=== PATIENT | male | born 1965 | race Caucasian/White ===

== ENCOUNTER 2016-08-10 15:38 | Emergency (ER) | payer OTHER ==
[~2016-08-10] VITALS: Ht 188 cm; Wt 126.9 kg
[2016-08-10 15:46] VITALS: TEMP 37.1; Ht 188 cm; Wt 126.9 kg
[2016-08-10] MEDS ORDERED: SODIUM CHLORIDE 0.9% 500ML 500 ML IV STA (15:58)
[2016-08-10] MEDS ORDERED: ZIPR1CAP4 PO (16:16)
[2016-08-10] MEDS ORDERED: TRC145 PO (16:16)
[2016-08-10] MEDS ORDERED: TRAZ100T29 PO (16:16)
[2016-08-10] MEDS ORDERED: LSN5 PO (16:16)
[2016-08-10] MEDS ORDERED: FOLI1TAB7 PO (16:16)
[2016-08-10] MEDS ORDERED: ESCI10TA17 PO (16:16)
[2016-08-10] MEDS ORDERED: PRLSR20 PO (16:16)
[2016-08-10] MEDS ORDERED: PROAIR HFA PO (16:16)
[2016-08-10] MEDS ORDERED: SYN25 PO (16:16)
[2016-08-10] MEDS ORDERED: GDN60 PO (16:16)
[2016-08-10] MEDS ORDERED: ADVIN25/60 INH (16:16)
[2016-08-10 16:48] LABS: HEMATOCRIT 34.4 % (42-52); MEAN CELL VOLUME 88.4 fL (80-100); MEAN CORPUSCULAR HEMOGLOBIN 32.1 pg (25-34); MEAN CORPUSCULAR HGB CONC 36.3 g/dl (32-36); MEAN PLATELET VOLUME 10.6 fL (7.4-10.4); PLATELET COUNT 275 K/uL (130-400); RED BLOOD COUNT 3.89 M/uL (4.7-6.1); WHITE BLOOD COUNT 6.06 K/uL (4.8-10.8)
[2016-08-10 17:12] LABS: BUN/CREATININE RATIO 10.3 (10-20); CALCIUM 8.7 mg/dl (8.5-10.1); CREATININE 1.6 mg/dl (0.60-1.40); POTASSIUM 3.6 mmol/L (3.5-5.1)
[2016-08-10 17:27] LABS: ACETAMINOPHEN < 2 ug/ml (10-30); LITHIUM < 0.2 mMOL/L (0.6-1.2)
[2016-08-10 17:37] LABS: THYROID STIMULATING HORMONE 1.11 uIu/ml (0.300-4.500)
[2016-08-10 17:51] LABS: BENZODIAZEPINE, URINE POS (NEG); COCAINE,URINE NEG (NEG); PHENCYCLIDINE, URINE NEG (NEG)
[2016-08-10] MEDS ORDERED: ZIPRASIDONE 20 MG CAP PO STA (21:50)
--- NOTE | 2016-08-10 21:55 | EMERGENCY ROOM VISIT NOTE ---
History Report prepared by Joanne: Kenzie Ramos Under the Supervision of: Dr. Tigre Bella M.D. First contact with patient: 15:51 Chief Complaint: MENTAL HEALTH EVALUATION Stated Complaint: NEEDS MED CLEARANCE History of Present Illness The patient is a 51 year old male who presents to the Emergency Room for a mental health evaluation due to worsening hallucinations over the past several days. The patient has a known history of schizophrenia and has been having both auditory and visual hallucinations recently. He has had a lack of self care such has not showering or brushing his teeth. He has not eaten in a few days. The patient has been falling asleep at random times during the night and day and does not have an average bed time. Currently, he complains of feeling slightly weak most likely from not eating. He notes that he has been compliant with his medications. Source of History: patient Onset: a few days ago Position: other (psych) Quality: other (visual and auditory hallucinations) Timing: worsening Associated Symptoms: + weakness Review of Systems See HPI for pertinent positives & negatives. A total of 10 systems reviewed and were otherwise negative. Past Medical & Surgical Medical Problems: (1) Schizophrenia Family History No pertinent family history stated. Social History Smoking Status: Never Smoker Housing Status: lives alone Current/Historical Medications Scheduled Escitalopram (Lexapro), 10 MG PO DAILY Fenofibrate (Fenofibrate), 145 MG PO DAILY Fluticasone Prop/Salmeterol (Advair Diskus 250/50 60 Dose), 1 PUFF INH BID Folic Acid (Folvite), 1 MG PO DAILY Levothyroxine Sodium (Synthroid), 25 MCG PO QAM Lisinopril (Lisinopril), 5 MG PO DAILY Omeprazole (Prilosec), 20 MG PO DAILY Trazodone Hcl (Trazodone), 50 MG PO HS Ziprasidone (Geodon), 60 MG PO BID Ziprasidone Hcl (Geodon), 40 MG PO BID [Proair Hfa], 1 PUFF PO DIRECTED Allergies Coded Allergies: No Known Allergies (Unverified , 08/10/16) Physical Exam Vital Signs Date Time Temp Pulse Resp B/P Pulse Ox O2 Delivery O2 Flow Rate FiO2 08/10/16 21:44 88 18 127/75 97 Room Air 08/10/16 19:47 97 18 139/76 99 Room Air 08/10/16 17:50 95 15 135/84 99 Room Air 08/10/16 15:46 37.1 113 18 114/69 96 Room Air Physical Exam Constitutional: Vital signs reviewed. Patient is disheveled and malodorous. Eyes: Pupils are equal round reactive to light. Conjunctiva are noninjected. Right lazy eye. ENT: Poor dentition. Pharynx is clear without erythema or exudate. Mucous membranes are dry. Neck supple without meningeal signs. Respiratory: Clear to auscultation bilaterally. Breath sounds are equal bilaterally. Cardiovascular: Regular rate and rhythm. No rubs or gallops. GI: Soft, nondistended and nontender. Bowel sounds are present. Musculoskeletal: No peripheral edema. No lower extremity tenderness. Integumentary: No cyanosis. Neurological: The patient is awake and alert. No focal deficits. Psychiatric: Flight of ideas. Medical Decision & Procedures Laboratory Results 08/10/16 16:35 08/10/16 16:35 Test 08/10/16 14:30 08/10/16 16:35 Urine Opiates Screen NEG (NEG) Urine Methadone, Qualitative NEG (NEG) Urine Barbiturates NEG (NEG) Urine Phencyclidine (PCP) Level NEG (NEG) Ur Amphetamine/Methamphetamine NEG (NEG) MDMA (Ecstasy) Screen POS (NEG) Urine Benzodiazepines Screen POS (NEG) Urine Cocaine Metabolite NEG (NEG) Urine Marijuana (THC) NEG (NEG) Red Blood Count 3.89 M/uL (4.7-6.1) Mean Corpuscular Volume 88.4 fL (80-100) Mean Corpuscular Hemoglobin 32.1 pg (25-34) Mean Corpuscular Hemoglobin Concent 36.3 g/dl (32-36) RDW Standard Deviation 39.7 fL (36.4-46.3) RDW Coefficient of Variation 12.4 % (11.5-14.5) Mean Platelet Volume 10.6 fL (7.4-10.4) Anion Gap 10.0 mmol/L (3-11) Est Creatinine Clear Calc Drug Dose 78.2 ml/min Estimated GFR () 57.4 Estimated GFR (Non- 49.5 BUN/Creatinine Ratio 10.3 (10-20) Calcium Level 8.7 mg/dl (8.5-10.1) Total Bilirubin 0.4 mg/dl (0.2-1) Direct Bilirubin 0.2 mg/dl (0-0.2) Aspartate Amino Transf (AST/SGOT) 10 U/L (15-37) Alanine Aminotransferase (ALT/SGPT) 34 U/L (12-78) Alkaline Phosphatase 37 U/L (45-117) Total Protein 6.8 gm/dl (6.4-8.2) Albumin 3.4 gm/dl (3.4-5.0) Thyroid Stimulating Hormone (TSH) 1.110 uIu/ml (0.300-4.500) Salicylates Level < 1.7 mg/dl (2.8-20) Acetaminophen Level < 2 ug/ml (10-30) [place] Level < 0.2 mMOL/L (0.6-1.2) Ethyl Alcohol mg/dL < 3.0 mg/dl (0-3) Laboratory results as reviewed by me. Medications Administered Medications (Trade) Dose Ordered Sig/Venita Route Start Time Stop Time Status Last Admin Dose Admin Sodium Chloride (Nss 500ml) 500 ml @ 999 mls/hr Q31M STAT IV 08/10/16 15:58 08/10/16 16:28 DC 08/10/16 15:58 999 MLS/HR ED Course 1555: The patient was evaluated in room A5. A complete history and physical exam was performed. 1558: Ordered NSS 500 ml @ 999 mls/hr IV. Medical Decision This is a 51-year-old male who presents for mental health evaluation. I did perform a limited focused review of portions of the patient's old chart on the electronic medical record. The patient has had no prior visits to this hospital. I did evaluate the patient as noted above. The patient has a history of schizophrenia. He has not been taking care of himself. He states that he has been taking his medications but it is unclear whether this is true or not. He has had increased hallucinations. He denies any homicidal or suicidal ideation. He has no physical complaints other than feeling generally weak but states that he has not really been eating or drinking very much. He has been unable to sleep and has been ignoring his personal hygiene. IV access was established. I did treat the patient with normal saline IV. He was given a meal tray. I did order and review the patient's blood work as noted in the electronic medical record. His creatinine is slightly high but he does weigh 127 kg and so it is difficult to determine whether this is baseline for him. No prior blood work is available for comparison. He reports that he has been urinating normally. The patient was medically cleared. He was given his Geodon. The patient was found an inpatient bed and [facility]. He will be transported there is securely. Impression Primary Impression: Schizophrenia Additional Impression: Total self-care deficit Scribe Attestation The scribe's documentation has been prepared under my direct and personally reviewed by me in its entirety. I confirm that the note above accurately reflects all work, treatment, procedures, and medical decision making performed by me. Departure Information Dispostion Mental Health Acute Care Referrals No Doctor, Assigned (PCP) Patient Instructions My [facility] Problem Qualifiers
[2016-08-11 00:52] VITALS: BP 128/73; PULSE 73; O2SAT 100
[2016-08-13 22:33] LABS: HYDROXYETHYLFLURAZEPAM CONF NEGATIVE NG/ML (CUTOFF=50); HYDROXYMIDAZOLAM NEGATIVE NG/ML (CUTOFF=50); HYDROXYTRIAZOLAM CONF NEGATIVE NG/ML (CUTOFF=50); TEMAZEPAM CONF NEGATIVE NG/ML (CUTOFF=50)
== END 2016-08-11 00:53 | disposition short-term general hospital (02) ==
LOC: C.EDB 15:39 → C.EDA 08-11 00:53
DX: F20.9 Schizophrenia, unspecified (principal); Z79.899 Other long term (current) drug therapy

== ENCOUNTER 2016-08-23 15:46 | Emergency (ER) | payer OTHER ==
[~2016-08-23] VITALS: Ht 188 cm; Wt 130.0 kg
[2016-08-23 15:46] VITALS: TEMP 36.8; Ht 188 cm; Wt 130.0 kg
[~2016-08-23 15:46] MED LIST: ADVIN25/60 INH; ESCI10TA17 PO; FOLI1TAB7 PO; GDN60 PO; LSN5 PO; PRLSR20 PO; PROAIR HFA PO; SYN25 PO; TRAZ100T29 PO; TRC145 PO; ZIPR1CAP4 PO
--- NOTE | 2016-08-23 16:42 | EMERGENCY ROOM VISIT NOTE ---
History Report prepared by Joanne: Sonal Omalley Under the Supervision of: Dr. Jared Wu M.D. First contact with patient: 16:12 Chief Complaint: DIZZY Stated Complaint: DIZZINESS, VISUAL PROBLEMS Nursing Triage Summary: Per EMS, patient c/o of dizziness and blurred vision since 12 pm today. Hx of Schizophrenia, dicharged from [facility] on Wednesday. Patient reports "I've had this for a while. They up my Trazadone to help me sleep but I haven't fill it yet. I was here on August 10 for the same reason and they send me to [facility]." Patient's right deviates to the right, patient states it is normal for him. History of Present Illness The patient is a 51 year old male who presents to the Emergency Room with complaints of persistent visual problems since approximately 1200 today. He complains of blurred vision, double vision and dizziness. The patient has a history of schizophrenia and was discharged from [facility] this past Wednesday, days ago. He notes his Trazodone dose was increased this past week, but he has not started taking the new dosage yet. He has been taking his other medications as prescribed. The patient also complains of some mild abdominal pain but denies any other physical complaints. Source of History: patient Onset: 1199 today Position: eye (bilateral) Timing: other (persistent) Associated Symptoms: + abdominal pain Review of Systems All systems have been listed, reviewed, and are negative other than those previously mentioned. Please see Additional Medical History Sheet. Past Medical & Surgical Medical Problems: (1) Schizophrenia Social History Smoking Status: Never Smoker Housing Status: lives alone Current/Historical Medications Scheduled Escitalopram (Lexapro), 10 MG PO DAILY Fenofibrate (Fenofibrate), 145 MG PO DAILY Fluticasone Prop/Salmeterol (Advair Diskus 250/50 60 Dose), 1 PUFF INH BID Folic Acid (Folvite), 1 MG PO DAILY Levothyroxine Sodium (Synthroid), 25 MCG PO QAM Lisinopril (Lisinopril), 5 MG PO DAILY Omeprazole (Prilosec), 20 MG PO DAILY Trazodone Hcl (Trazodone), 50 MG PO HS Ziprasidone (Geodon), 60 MG PO BID Ziprasidone Hcl (Geodon), 40 MG PO BID Scheduled PRN Clonazepam (Klonopin), 0.5 MG PO Q6 PRN for anxiet Meclizine Hcl (Meclizine Hcl), 1 TAB PO BID PRN for VERTIGO Allergies Coded Allergies: No Known Allergies (Unverified , 08/10/16) Physical Exam Vital Signs Date Time Temp Pulse Resp B/P Pulse Ox O2 Delivery O2 Flow Rate FiO2 08/23/16 17:10 90 18 145/81 99 Room Air 08/23/16 16:36 85 08/23/16 15:46 36.8 90 20 129/73 98 Room Air Physical Exam GENERAL: Patient awake, alert, oriented appropriately. Patient follows commands. Patient does not appear toxic. Patient is adequately hydrated and well-nourished. SKIN: No erythema, pallor, cyanosis or rash HEENT: Normal head. Patient has right eye deviation laterally, appears to be old. Increased cerumen in right TM. Oral cavity and posterior pharynx appear normal. Neck: Without adenopathy, no neck vein distention. LUNGS: Clear to auscultation. No wheezes, no rales, no rhonchi. HEART: No murmurs. No gallops. No rubs ABDOMEN: Obese abdomen. No masses, no rebound, no hepatomegaly or splenomegaly. EXTREMITIES: No signs of trauma. No pedal or pretibial edema. No calf or thigh tenderness. NEUROLOGIC: Cranial nerves II-XII within normal limits. No gross motor sensory function deficits. PSYCHIATRIC: Alert and oriented. Patient does not appear suicidal or homicidal. Patient appears calm. Medical Decision & Procedures Laboratory Results 08/23/16 16:33 Red Blood Count 3.85, Mean Corpuscular Volume 88.8, Mean Corpuscular Hemoglobin 31.4, Mean Corpuscular Hemoglobin Concent 35.4, Mean Platelet Volume 10.0, Neutrophils (%) (Auto) 76.5, Lymphocytes (%) (Auto) 19.1, Monocytes (%) (Auto) 3.3, Eosinophils (%) (Auto) 0.9, Basophils (%) (Auto) 0.2, Neutrophils # (Auto) 3.44, Lymphocytes # (Auto) 0.86, Monocytes # (Auto) 0.15, Eosinophils # (Auto) 0.04, Basophils # (Auto) 0.01 08/23/16 16:33 Test 08/23/16 16:33 White Blood Count 4.50 K/uL (4.8-10.8) Red Blood Count 3.85 M/uL (4.7-6.1) Hemoglobin 12.1 g/dL (14.0-18.0) Hematocrit 34.2 % (42-52) Mean Corpuscular Volume 88.8 fL (80-100) Mean Corpuscular Hemoglobin 31.4 pg (25-34) Mean Corpuscular Hemoglobin Concent 35.4 g/dl (32-36) Platelet Count 283 K/uL (130-400) Mean Platelet Volume 10.0 fL (7.4-10.4) Neutrophils (%) (Auto) 76.5 % Lymphocytes (%) (Auto) 19.1 % Monocytes (%) (Auto) 3.3 % Eosinophils (%) (Auto) 0.9 % Basophils (%) (Auto) 0.2 % Neutrophils # (Auto) 3.44 K/uL (1.4-6.5) Lymphocytes # (Auto) 0.86 K/uL (1.2-3.4) Monocytes # (Auto) 0.15 K/uL (0.11-0.59) Eosinophils # (Auto) 0.04 K/uL (0-0.5) Basophils # (Auto) 0.01 K/uL (0-0.2) RDW Standard Deviation 40.4 fL (36.4-46.3) RDW Coefficient of Variation 12.6 % (11.5-14.5) Immature Granulocyte % (Auto) 0.0 % Immature Granulocyte # (Auto) 0.00 K/uL (0.00-0.02) Anion Gap 12.0 mmol/L (3-11) Est Creatinine Clear Calc Drug Dose 97.4 ml/min Estimated GFR () 73.7 Estimated GFR (Non- 63.6 BUN/Creatinine Ratio 10.6 (10-20) Calcium Level 8.7 mg/dl (8.5-10.1) Total Bilirubin 0.3 mg/dl (0.2-1) Aspartate Amino Transf (AST/SGOT) 9 U/L (15-37) Alanine Aminotransferase (ALT/SGPT) 19 U/L (12-78) Alkaline Phosphatase 41 U/L (45-117) Total Protein 6.8 gm/dl (6.4-8.2) Albumin 3.6 gm/dl (3.4-5.0) Globulin 3.2 gm/dl (2.5-4.0) Albumin/Globulin Ratio 1.1 (0.9-2) Laboratory results as stated above per my review. ECG Indication: other (vision changes) Rate (beats per minute): 82 Rhythm: normal sinus (normal sinus rhythm) Findings: no acute ischemic change, no ectopy ED Course 1613: Past medical records reviewed. The patient was evaluated in room B12. A complete history and physical examination was performed. 1739: I reevaluated the patient. He is feeling well and resting comfortably. I discussed his results and discharge instructions and he verbalized complete understanding and agreement. 1752: Nursing informed me the patient does not want to go home. 1754: I reevaluated the patient. I explained to the patient that I do not think he meets psychiatric inpatient criteria at this time. He is requesting something for anxiety, and I will write a prescription. I discussed his discharge instructions again and he verbalized complete understanding and agreement. 1809: Nursing informed me the patients brother is on his way. 1814: Klonopin 1 mg PO. Medical Decision The differential diagnoses considered include: Dizziness, diplopia and anxiety. Patient is a long history of schizophrenia and is on multiple medications. The patient has disconjugate gaze complains of some type diplopia which is old. He also complains of some dizziness. I believe the patient is very anxious. Multiple labs were performed. Please see above. I believe the patient is safe to return home but does require close follow-up by his family physician and psychiatrist. I do not believe he warrants psychiatric or medical admission at this time. The patient is not suicidal or homicidal. Impression Primary Impression: Anxiety Additional Impressions: Schizophrenia Dizziness Scribe Attestation The scribe's documentation has been prepared under my direction and personally reviewed by me in its entirety. I confirm that the note above accurately reflects all work, treatment, procedures, and medical decision making performed by me. Departure Information Dispostion Home / Self-Care Prescriptions Clonazepam (KLONOPIN) 0.5 Mg Tab 0.5 MG PO Q6 Y for anxiet, #30 TAB Prov: Jared Wu M.D. 08/23/16 Referrals No Doctor, Assigned (PCP) Patient Instructions My [facility] Additional Instructions Continue all of your current medications as prescribed. Call your family physician tomorrow for a follow-up appointment this week. Problem Qualifiers
[2016-08-23] MEDS ORDERED: MECL1TAB42 PO (16:49)
[2016-08-23 16:53] LABS: BASO % 0.2 %; BASO ABS # 0.01 K/uL (0-0.2); COMPLETE YES; EOS % 0.9 %; HEMATOCRIT 34.2 % (42-52); LYMPH % 19.1 %; LYMPH ABS # 0.86 K/uL (1.2-3.4); MEAN CELL VOLUME 88.8 fL (80-100); MEAN CORPUSCULAR HEMOGLOBIN 31.4 pg (25-34); MEAN CORPUSCULAR HGB CONC 35.4 g/dl (32-36); MONO % 3.3 %; NEUT % 76.5 %; PLATELET COUNT 283 K/uL (130-400); RED BLOOD COUNT 3.85 M/uL (4.7-6.1)
[2016-08-23 17:12] LABS: BUN/CREATININE RATIO 10.6 (10-20); CALCIUM 8.7 mg/dl (8.5-10.1); CREATININE 1.3 mg/dl (0.60-1.40); POTASSIUM 3.7 mmol/L (3.5-5.1)
[2016-08-23 17:15] LABS: ALB/GLOB RATIO 1.1 (0.9-2)
[2016-08-23] MEDS ORDERED: CLON0.5T3 PO (17:59)
[2016-08-23] MEDS ORDERED: CLONAZEPAM 1 MG TAB PO ONE (18:00)
[2016-08-23] MEDS ORDERED: CLONAZEPAM 0.5 MG TAB PO ONE (18:15)
[2016-08-23 18:47] VITALS: BP 130/82; PULSE 100; O2SAT 98
== END 2016-08-23 19:19 | disposition home or self-care (01) ==
LOC: EDBD 15:46 → C.EDB 15:48
DX: F41.9 Anxiety disorder, unspecified (principal); F20.9 Schizophrenia, unspecified; R42 Dizziness and giddiness; Z79.899 Other long term (current) drug therapy

== ENCOUNTER → 2017-04-30 | Outpatient (CLI) | payer OTHER ==
[~2017-04-30] MED LIST changes: +MECL1TAB42 PO; -PROAIR HFA PO
[2017-04-30 09:00] LABS: HEMATOCRIT 38.6 % (42-52); MEAN CELL VOLUME 89.1 fL (80-100); MEAN CORPUSCULAR HEMOGLOBIN 30.9 pg (25-34); MEAN CORPUSCULAR HGB CONC 34.7 g/dl (32-36); MEAN PLATELET VOLUME 10.6 fL (7.4-10.4); PLATELET COUNT 217 K/uL (130-400); RED BLOOD COUNT 4.33 M/uL (4.7-6.1)
[2017-04-30 09:06] LABS: BLOOD UREA NITROGEN 36 mg/dl (7-18); BUN/CREATININE RATIO 23.2 (10-20); CALCIUM 9.3 mg/dl (8.5-10.1); CARBON DIOXIDE 29 mmol/L (21-32); CHLORIDE 106 mmol/L (98-107); CREATININE 1.54 mg/dl (0.60-1.40); GLUCOSE 94 mg/dl (70-99); POTASSIUM 4.4 mmol/L (3.5-5.1); SODIUM 139 mmol/L (136-145)
[2017-04-30 09:17] LABS: THYROID STIMULATING HORMONE 0.975 uIu/ml (0.300-4.500)
== END | disposition home or self-care (01) ==
LOC: C.LABSPEC 08:48
PROVIDERS: ATTEND Internal Medicine
DX: E03.9 Hypothyroidism, unspecified (principal); N18.9 Chronic kidney disease, unspecified

== ENCOUNTER → 2017-07-28 | Outpatient (CLI) | payer OTHER ==
[~2017-07-28] MED LIST changes: -FOLI1TAB7 PO; +FOLI1TAB8 PO
[2017-07-28 10:07] LABS: BLOOD UREA NITROGEN 27 mg/dl (7-18); CALCIUM 9.2 mg/dl (8.5-10.1); CARBON DIOXIDE 29 mmol/L (21-32); CREATININE 1.53 mg/dl (0.60-1.40); GLUCOSE 150 mg/dl (70-99); POTASSIUM 4.1 mmol/L (3.5-5.1); SODIUM 137 mmol/L (136-145)
--- NOTE | 2017-07-29 10:14 | CODING QUERY NO DIAGNOSIS ---
TREATMENT RENDERED WITHOUT A DIAGNOSIS 66 To promote full compliance with coding requirements relating to patient care, physician participation is requested in all cases of thermite bomb loader uncertainty. Please assist us with providing a diagnosis/symptom for the test(s) below: A diagnosis/symptom was not documented on your Order. A valid diagnosis/symptom is required to bill all insurances. Please remember that we are unable to code a diagnosis of rule out, probable, possible, questionable, or suspected. DOS 07/28/17 Tests that require a diagnosis: * PARTIAL RENAL PROFILE DIAGNOSIS: Provider Signature: Date: Thank you Maris Dempsey [employer] Once completed, please kindly fax back to [phone] For questions please call [phone]
== END | disposition home or self-care (01) ==
LOC: C.LABSPEC 08:31
PROVIDERS: ATTEND Internal Medicine
DX: N18.9 Chronic kidney disease, unspecified (principal); I12.9 Hypertensive chronic kidney disease with stage 1 through stage 4 chronic kidney disease, or unspecified chronic kidney disease

== ENCOUNTER → 2017-10-27 | Outpatient (CLI) | payer OTHER ==
[~2017-10-27] MED LIST changes: -ZIPR1CAP4 PO; +ZIPR40CA21 PO
[2017-10-27 09:38] LABS: HEMOGLOBIN 13.4 g/dL (14.0-18.0); MEAN CELL VOLUME 90.5 fL (80-100); MEAN CORPUSCULAR HEMOGLOBIN 31.1 pg (25-34); MEAN CORPUSCULAR HGB CONC 34.4 g/dl (32-36); MEAN PLATELET VOLUME 10.7 fL (7.4-10.4); PLATELET COUNT 221 K/uL (130-400); RED CELL DISTRIBUTION WIDTH CV 13.6 % (11.5-14.5); RED CELL DISTRIBUTION WIDTH SD 45.1 fL (36.4-46.3); WHITE BLOOD COUNT 4.46 K/uL (4.8-10.8)
[2017-10-27 09:48] LABS: BLOOD UREA NITROGEN 21 mg/dl (7-18); CALCIUM 9.3 mg/dl (8.5-10.1); CARBON DIOXIDE 30 mmol/L (21-32); CREATININE 1.45 mg/dl (0.60-1.40); GLUCOSE 111 mg/dl (70-99); POTASSIUM 4.2 mmol/L (3.5-5.1); SODIUM 139 mmol/L (136-145)
== END | disposition home or self-care (01) ==
LOC: C.LABSPEC 09:06
PROVIDERS: ATTEND Nurse Practitioner Adult Health
DX: I10 Essential (primary) hypertension (principal)

== ENCOUNTER → 2017-11-10 | Outpatient (CLI) | payer OTHER ==
[2017-11-10 09:49] LABS: BLOOD UREA NITROGEN 22 mg/dl (7-18); CALCIUM 9.2 mg/dl (8.5-10.1); CARBON DIOXIDE 31 mmol/L (21-32); CREATININE 1.41 mg/dl (0.60-1.40); GLUCOSE 112 mg/dl (70-99); POTASSIUM 4.2 mmol/L (3.5-5.1); SODIUM 141 mmol/L (136-145)
--- NOTE | 2017-11-19 07:50 | CODING QUERY NO DIAGNOSIS ---
TREATMENT RENDERED WITHOUT A DIAGNOSIS 66 To promote full compliance with coding requirements relating to patient care, physician participation is requested in all cases of product marketer uncertainty. Please assist us with providing a diagnosis/symptom for the test(s) below: A diagnosis/symptom was not documented on your Order. A valid diagnosis/symptom is required to bill all insurances. Please remember that we are unable to code a diagnosis of rule out, probable, possible, questionable, or suspected. DOS 11/10/17 Tests that require a diagnosis: * PARTIAL RENAL PROFILE DIAGNOSIS: Provider Signature: Date: Thank you Maris Dempsey [employer] Once completed, please kindly fax back to [phone] For questions please call [phone]
== END | disposition home or self-care (01) ==
LOC: C.LABSPEC 08:41
PROVIDERS: ATTEND Nurse Practitioner Adult Health
DX: R63.4 Abnormal weight loss (principal); I10 Essential (primary) hypertension

== ENCOUNTER → 2018-02-09 | Outpatient (CLI) | payer OTHER ==
[~2018-02-09] MED LIST changes: +LISI-730 PO; -LSN5 PO
[2018-02-09 09:55] LABS: HEMATOCRIT 38.3 % (42-52); HEMOGLOBIN 13.1 g/dL (14.0-18.0); MEAN CELL VOLUME 89.9 fL (80-100); MEAN CORPUSCULAR HEMOGLOBIN 30.8 pg (25-34); MEAN CORPUSCULAR HGB CONC 34.2 g/dl (32-36); MEAN PLATELET VOLUME 10.8 fL (7.4-10.4); PLATELET COUNT 210 K/uL (130-400); RED CELL DISTRIBUTION WIDTH CV 13.1 % (11.5-14.5); RED CELL DISTRIBUTION WIDTH SD 42.3 fL (36.4-46.3)
[2018-02-09 10:15] LABS: BLOOD UREA NITROGEN 19 mg/dl (7-18); CALCIUM 8.5 mg/dl (8.5-10.1); CARBON DIOXIDE 29 mmol/L (21-32); CHOLESTEROL 104 mg/dl (0-200); CREATININE 1.45 mg/dl (0.60-1.40); GLUCOSE 170 mg/dl (70-99); LDL CHOLESTEROL CALCULATED 46 mg/dl; POTASSIUM 4.2 mmol/L (3.5-5.1); SODIUM 138 mmol/L (136-145)
== END | disposition home or self-care (01) ==
LOC: C.LABSPEC 09:03
PROVIDERS: ATTEND Internal Medicine
DX: E66.9 Obesity, unspecified (principal)

== ENCOUNTER → 2018-03-02 | Outpatient (CLI) | payer OTHER ==
[2018-03-02 10:20] LABS: BLOOD UREA NITROGEN 23 mg/dl (7-18); CALCIUM 8.9 mg/dl (8.5-10.1); CARBON DIOXIDE 26 mmol/L (21-32); CREATININE 1.72 mg/dl (0.60-1.40); GLUCOSE 225 mg/dl (70-99); POTASSIUM 3.9 mmol/L (3.5-5.1); SODIUM 137 mmol/L (136-145)
== END | disposition home or self-care (01) ==
LOC: C.LABSPEC 08:32
PROVIDERS: ATTEND Internal Medicine
DX: N18.9 Chronic kidney disease, unspecified (principal)

== ENCOUNTER 2019-02-23 22:13 | Observation (INO) ==
[2019-02-23] MEDS ORDERED: SODIUM CHLORIDE 0.9% 500 ML IV SCH (22:30)
--- NOTE | 2019-02-23 22:53 | XRay Report ---
XR chest 1V portable CLINICAL HISTORY: Confusion COMPARISON STUDY: No previous studies for comparison. FINDINGS: The cardiac and mediastinal contours are normal. There is no evidence of focal pulmonary co nsolidation. There is no evidence of failure. No pleural effusions are visualized.[ IMPRESSION: No active disease in the chest. Electronically signed by: Onel Sanabria M.D. 02/23/2019 10:51 PM
[2019-02-23 22:54] LABS: Basophils # (auto) 0.01 K/uL (0-0.2); Basophils % (auto) 0.3 %; Eosinophils # (auto) 0.11 K/uL (0-0.5); Eosinophils % (auto) 2.8 %; Hematocrit (blood only) 35.3 % (42-52); Hemoglobin 12.3 g/dL (14.0-18.0); Immature Granulocytes # (auto) 0.02 K/uL (0.00-0.02); Immature Granulocytes % (auto) 0.5 %; Lymphocytes % (auto) 32.5 %; Mean Corpuscular Hgb Conc 34.8 g/dL (32-36); Mean Corpuscular Volume 90.7 fL (80-100); Mean Platelet Volume 10.3 fL (7.4-10.4); Monocytes % (auto) 7.5 %; Neutrophils # (auto) 2.26 K/uL (1.4-6.5); Neutrophils % (auto) 56.4 %; Platelet Count 209 K/uL (130-400); RDW Coefficient of Variation 13.8 % (11.5-14.5); RDW Standard Deviation 45.6 fL (36.4-46.3); Red Blood Count 3.89 M/uL (4.7-6.1)
--- NOTE | 2019-02-23 23:02 | CT Scan Report ---
CT head/brain wo con CLINICAL HISTORY: Confusion COMPARISON STUDY: No previous studies for comparison. TECHNIQUE: Axial CT of the brain is performed from the vertex to the skull base. IV contrast was not administered for this examination. A dose lowering technique was utilized adhering to the principles of ALARA. CT DOSE: 687.98 mGy.cm FINDINGS: No intra or extra-axial mass lesions are visualized. There is no CT evidence of acute cortical infarc tion. There is no evidence of midline shift. There is no acute hemorrhage. No calvarial fractures ar e visualized. There is mild frontal lobe atrophy. There is no evidence of pathologic ventricular dilatation. There is no evidence of acute sinusitis IMPRESSION: 1. Frontal lobe atrophic change 2. No acute intracranial findings Electronically signed by: Onel Sanabria M.D. 02/23/2019 11:01 PM
[2019-02-23 23:15] LABS: Alanine Aminotransferase 33 U/L (12-78); Albumin Level 3.9 gm/dl (3.4-5.0); Aspartate Aminotransferase 24 U/L (15-37); BUN Creatinine Ratio 11.9 (10-20); Blood Urea Nitrogen 20 mg/dl (7-18); Calcium 8.5 mg/dl (8.5-10.1); Carbon Dioxide 29 mmol/L (21-32); Chloride 107 mmol/L (98-107); Est GFR (African American) 52.2; Glucose 132 mg/dl (70-99); Potassium 4.1 mmol/L (3.5-5.1); Sodium 140 mmol/L (136-145)
[2019-02-23 23:21] LABS: Appearance Urine Clear (Clear); Bilirubin Urine Negative (Negative); Blood Urine Negative (Negative); Color Urine Yellow; Glucose Urine UA Negative (Negative); Ketones Urine Negative (Negative); Leukocyte Esterase Urine Negative (Negative); Nitrite Urine Negative (Negative); Protein Urine Negative (Negative); Specific Gravity Urine 1.009 (1.000-1.030); Urobilinogen Urine Negative (Negative)
[2019-02-23 23:26] LABS: Albumin Globulin Ratio 1.1 (0.9-2); Alkaline Phosphatase 56 U/L (45-117); Bilirubin,Total 0.5 mg/dl (0.2-1); Creatine Kinase 246 U/L (39-308); Globulin 3.4 gm/dl (2.5-4.0); Total Protein 7.3 gm/dl (6.4-8.2); Troponin I < 0.015 ng/ml (0-0.045)
[2019-02-23] MEDS ORDERED: DEXAMETHASONE **PF** INJ 10 MG/ML VIAL IV ONE (23:26)
--- NOTE | 2019-02-23 23:26 | Emergency Department Note ---
History of Present Illness General Chief complaint: Shortness of Breath/Dyspnea History of Present Illness This 53-year-old presents to the ER complaining of confusion episodes and dyspnea Location: Generalized Quality: Confused Severity: Moderate Duration: Today Timing: Started this afternoon Context: The shelter was concerned and sent the patient in Modifying factors: better with nebulizer; worse with activity Patient is at a shelter in the independent living facility area. He states he felt short of breath and confused. He received a nebulizer from EMS and this helped. Patient denies chest pain, abdominal pain, fevers, cough, congestion. No alcohol or drug use. Home Medications Home Medications Medication Instructions Recorded Confirmed Type acetaminophen [Tylenol] 650 mg PO Q4 PRN 02/23/19 02/23/19 History albuterol sulfate [ProAir HFA] 2 puff INHALATION Q6H PRN 02/23/19 02/23/19 History amlodipine [Norvasc] 5 mg PO BID 02/23/19 02/23/19 History clonidine HCl [Catapres] 0.2 mg PO BID 02/23/19 02/23/19 History dextromethorphan-guaifenesin 10 ml PO Q4 PRN 02/23/19 02/23/19 History [Tussin DM] escitalopram oxalate [Lexapro] 20 mg PO DAILY 02/23/19 02/23/19 History fenofibrate nanocrystallized 145 mg PO DAILY 02/23/19 02/23/19 History [Tricor] fluticasone propion-salmeterol 1 inh INHALATION BID 02/23/19 02/23/19 History [Advair Diskus] folic acid 1 mg PO DAILY 02/23/19 02/23/19 History gemfibrozil [Lopid] 600 mg PO BID 02/23/19 02/23/19 History hydralazine 10 mg PO TID 02/23/19 02/23/19 History insulin glargine [Lantus U-100 64 unit SUBCUT AMPM 02/23/19 02/23/19 History Insulin] levothyroxine [Synthroid] 25 mcg PO DAILY 02/23/19 02/23/19 History meclizine [Motion Sickness 25 mg PO BID PRN 02/23/19 02/23/19 History (meclizine)] metoprolol tartrate [Lopressor] 50 mg PO BID 02/23/19 02/23/19 History metoprolol tartrate [Lopressor] 100 mg PO BID 02/23/19 02/23/19 History naproxen sodium 220 mg PO BID 02/23/19 02/23/19 History olanzapine [Zyprexa] 5 mg PO BID 02/23/19 02/23/19 History omeprazole 20 mg PO DAILY 02/23/19 02/23/19 History trazodone 100 mg PO HS 02/23/19 02/23/19 History Allergies Allergy/AdvReac Type Severity Reaction Status Date / Time No Known Allergies Allergy Unverified 02/23/19 23:01 Past Med/Surg History Medical History Anxiety Asthma Chronic kidney disease GERD (gastroesophageal reflux disease) High blood pressure Hyperlipidemia Paranoid schizophrenia Social History Feels Safe at Home: Yes Smoking Status: Never smoker Review of Systems All systems reviewed & are unremarkable except as noted in HPI & below Physical Exam Vital Signs Vital Signs - 24 hr 02/23/19 22:22 02/23/19 22:35 02/23/19 23:31 Temperature 36.5 C Temperature Source Oral Sepsis Recent Fever Within 48 Hours No Sepsis Action Taken by Nursing No Action Required Pulse Rate 66 Pulse Rate [Finger] 58 L Respiratory Rate 20 18 Respiratory Effort / Characteristics Non-Labored Respiratory Depth Normal Blood Pressure 151/61 H Blood Pressure [Right Arm] 115/78 Blood Pressure Mean 91 Blood Pressure Mean [Right Arm] 90 Pulse Oximetry 93 94 96 Oxygen Delivery Method Room Air Room Air Room Air VITALS: Vitals are noted on the nurse's note and reviewed by myself. Vital signs stable. GENERAL: White male, in no acute distress, nondiaphoretic, well-developed well- nourished. SKIN: The skin was without rashes, erythema, edema, or bruising. There is no tenting of the skin. Capillary reflex less than 2 seconds. HEAD: Normocephalic atraumatic. EARS: External auditory canals clear, tympanic membranes pearly emery without erythema or effusion bilaterally. EYES: Pupils equal round and reactive to light and accommodation. Conjunctivae without injection, sclerae without icterus. Extraocular movements intact. NOSE: Patent, turbinates without inflammation or discharge. MOUTH: Mucous membranes moist. Pharynx without erythema or exudate. Uvula midline. Airway patent. Tongue does not deviate. NECK: Supple without nuchal rigidity. No lymphadenopathy. No thyromegaly. Cervical spine is nontender. No JVD. HEART: Regular rate and rhythm LUNGS: Mild diffuse end expiratory wheezes, without rales or rhonchi. No retractions or accessory muscle use. ABDOMEN: Positive bowel sounds x 4. Normal tympanic percussion. Soft, nontender, without masses or organomegaly. Toro sign negative. No guarding or rebound tenderness. No CVA tenderness MUSCULOSKELETAL: No muscle atrophy, erythema, or edema noted. NEURO: Patient was alert and oriented to person place and time. Normal sensation to light and sharp touch. No focal neurological deficits. Course Administered Medications Discontinued Medications Dexamethasone Sodium Phosphate (Decadron Pf) 10 mg IV NOW ONE Stop: 02/23/19 23:27 Last Admin: 02/23/19 23:29 Dose: 10 mg Documented by: [id number] Sodium Chloride (Nss) 500 mls @ 999 mls/hr IV .Q31M BRIANNE Stop: 02/23/19 23:00 Last Infusion: 02/23/19 23:35 Dose: 0 mls/hr Documented by: [id number] Admin: 02/23/19 23:04 Dose: 999 mls/hr Documented by: [id number] Medical Decision Making Medical Records Attestation: I reviewed the patient's medical records. Home Medications Current Medication List: was personally reviewed by tx Laboratory Data Attestation: I reviewed the patient's lab results. Result diagrams: 02/23/19 22:36 02/23/19 22:36 Lab Results 02/23/19 02/23/19 02/23/19 Range/Units 22:36 22:36 22:36 WBC 4.00 L (4.8-10.8) K/uL RBC 3.89 L (4.7-6.1) M/uL Hgb 12.3 L (14.0-18.0) g/dL Hct 35.3 L (42-52) % MCV 90.7 (80-100) fL MCH 31.6 (25-34) pg MCHC 34.8 (32-36) g/dL RDW Std Deviation 45.6 (36.4-46.3) fL RDW Coeff of Jade 13.8 (11.5-14.5) % Plt Count 209 (130-400) K/uL MPV 10.3 (7.4-10.4) fL Immature Gran % (Auto) 0.5 % Neut % (Auto) 56.4 % Lymph % (Auto) 32.5 % Sumter % (Auto) 7.5 % Eos % (Auto) 2.8 % Baso % (Auto) 0.3 % Immature Gran # (Auto) 0.02 (0.00-0.02) K/uL Neut # (Auto) 2.26 (1.4-6.5) K/uL Lymph # (Auto) 1.30 (1.2-3.4) K/uL Sumter # (Auto) 0.30 (0.11-0.59) K/uL Eos # (Auto) 0.11 (0-0.5) K/uL Baso # (Auto) 0.01 (0-0.2) K/uL APTT (21.0-31.0) Seconds PTT Ratio D-Dimer (0-500) ug/L FEU Sodium 140 (136-145) mmol/L Potassium 4.1 (3.5-5.1) mmol/L Chloride 107 (98-107) mmol/L Carbon Dioxide 29 (21-32) mmol/L Anion Gap 4.0 (3-11) BUN 20 H (7-18) mg/dl Creatinine 1.71 H (0.6-1.4) mg/dl Est Cr Clr Drug Dosing 85.0 ml/min Est GFR ( Amer) 52.2 Est GFR (Non-Af Amer) 45.0 BUN/Creatinine Ratio 11.9 (10-20) Glucose 132 H (70-99) mg/dl Calcium 8.5 (8.5-10.1) mg/dl Magnesium 2.0 (1.8-2.4) mg/dl Total Bilirubin 0.5 (0.2-1) mg/dl AST 24 (15-37) U/L ALT 33 (12-78) U/L Alkaline Phosphatase 56 (45-117) U/L Total Creatine Kinase 246 (39-308) U/L Troponin I < 0.015 (0-0.045) ng/ml Total Protein 7.3 (6.4-8.2) gm/dl Albumin 3.9 (3.4-5.0) gm/dl Globulin 3.4 (2.5-4.0) gm/dl Albumin/Globulin Ratio 1.1 (0.9-2) TSH 1.770 (0.300-4.500) uIu/ml Urine Color Urine Appearance (Clear) Urine pH (4.5-7.5) Ur Specific Ariel (1.000-1.030) Urine Protein (Negative) Urine Glucose (UA) (Negative) Urine Ketones (Negative) Urine Blood (Negative) Urine Nitrite (Negative) Urine Bilirubin (Negative) Urine Urobilinogen (Negative) Ur Leukocyte Esterase (Negative) Urine Opiates Screen (Neg) Ur Methadone, Qual (Neg) Urine Barbiturates (Neg) Ur Phencyclidine (PCP) (Neg) U Amphetamin/Meth Scrn (Neg) MDMA (Ecstasy) Screen (Neg) U Benzodiazepines Scrn (Neg) Ur Cocaine Metabolite (Neg) U Marijuana (THC) Screen (Neg) Ethyl Alcohol mg/dL < 3.0 (0-3) mg/dl 02/23/19 02/23/19 02/23/19 Range/Units 22:36 23:09 23:09 WBC (4.8-10.8) K/uL RBC (4.7-6.1) M/uL Hgb (14.0-18.0) g/dL Hct (42-52) % MCV (80-100) fL MCH (25-34) pg MCHC (32-36) g/dL RDW Std Deviation (36.4-46.3) fL RDW Coeff of Jade (11.5-14.5) % Plt Count (130-400) K/uL MPV (7.4-10.4) fL Immature Gran % (Auto) % Neut % (Auto) % Lymph % (Auto) % Sumter % (Auto) % Eos % (Auto) % Baso % (Auto) % Immature Gran # (Auto) (0.00-0.02) K/uL Neut # (Auto) (1.4-6.5) K/uL Lymph # (Auto) (1.2-3.4) K/uL Sumter # (Auto) (0.11-0.59) K/uL Eos # (Auto) (0-0.5) K/uL Baso # (Auto) (0-0.2) K/uL APTT 26.5 (21.0-31.0) Seconds PTT Ratio 1.0 D-Dimer 300 (0-500) ug/L FEU Sodium (136-145) mmol/L Potassium (3.5-5.1) mmol/L Chloride (98-107) mmol/L Carbon Dioxide (21-32) mmol/L Anion Gap (3-11) BUN (7-18) mg/dl Creatinine (0.6-1.4) mg/dl Est Cr Clr Drug Dosing ml/min Est GFR ( Amer) Est GFR (Non-Af Amer) BUN/Creatinine Ratio (10-20) Glucose (70-99) mg/dl Calcium (8.5-10.1) mg/dl Magnesium (1.8-2.4) mg/dl Total Bilirubin (0.2-1) mg/dl AST (15-37) U/L ALT (12-78) U/L Alkaline Phosphatase (45-117) U/L Total Creatine Kinase (39-308) U/L Troponin I (0-0.045) ng/ml Total Protein (6.4-8.2) gm/dl Albumin (3.4-5.0) gm/dl Globulin (2.5-4.0) gm/dl Albumin/Globulin Ratio (0.9-2) TSH (0.300-4.500) uIu/ml Urine Color Yellow Urine Appearance Clear (Clear) Urine pH 5.0 (4.5-7.5) Ur Specific Ariel 1.009 (1.000-1.030) Urine Protein Negative (Negative) Urine Glucose (UA) Negative (Negative) Urine Ketones Negative (Negative) Urine Blood Negative (Negative) Urine Nitrite Negative (Negative) Urine Bilirubin Negative (Negative) Urine Urobilinogen Negative (Negative) Ur Leukocyte Esterase Negative (Negative) Urine Opiates Screen Neg (Neg) Ur Methadone, Qual Neg (Neg) Urine Barbiturates Neg (Neg) Ur Phencyclidine (PCP) Neg (Neg) U Amphetamin/Meth Scrn Neg (Neg) MDMA (Ecstasy) Screen Neg (Neg) U Benzodiazepines Scrn Neg (Neg) Ur Cocaine Metabolite Neg (Neg) U Marijuana (THC) Screen Neg (Neg) Ethyl Alcohol mg/dL (0-3) mg/dl Imaging Data Attestation: I personally reviewed and interpreted this imaging study as follows: MDM Narrative Prior records/ancillary studies reviewed and summarized above. Nursing notes reviewed. Additional history obtained from EMS. The patient's history was concerning for dyspnea and confusion episode. Differential diagnosis: Etiologies such as metabolic, infection, hypo/hyperglycemia, electrolyte abnorm alities, cardiac sources, intracerebral event, toxicologic, neurologic, as well as others were entertained. Physical examination: As above. ER treatment provided: IV Lock IV fluids, Decadron I did contact the nursing facility to obtain the patient's records as he has not been here recently. I did review them and reviewed the patient's medical history and medications. On reassessment the patient felt better. Diagnostics interpretation by me: EKG ordered for dyspnea ECG: Normal sinus, normal intervals, no acute ST-T wave changes. Rate of 68. Impression normal sinus rhythm interpreted by myself I think arrhythmia is unlikely. EKG shows normal sinus rhythm with no interval abnormalities such as QT prolongation or WPW. There are no findings to suggest Brugada syndrome. Cardiac monitoring in the emergency department reveals no tachycardic or bradycardic dysrhythmia. Hypertrophic cardiomyopathy was considered but there are no clear historical elements pointing toward this. EKG is not suggestive. The QRS voltage is not extremely large and there are no suggestive Q waves. The labs revealed mild anemia. No leukocytosis Creatinine 1.71. Hyperglycemia without DKA. Negative alcohol. Negative urine drug screen Imaging studies: CT head/brain wo con CLINICAL HISTORY: Confusion COMPARISON STUDY: No previous studies for comparison. TECHNIQUE: Axial CT of the brain is performed from the vertex to the skull base. IV contrast was not administered for this examination. A dose lowering technique was utilized adhering to the principles of ALARA. CT DOSE: 687.98 mGy.cm FINDINGS: No intra or extra-axial mass lesions are visualized. There is no CT evidence of acute cortical infarction. There is no evidence of midline shift. There is no acute hemorrhage. No calvarial fractures are visualized. There is mild frontal lobe atrophy. There is no evidence of pathologic ventricular dilatation. There is no evidence of acute sinusitis IMPRESSION: 1. Frontal lobe atrophic change 2. No acute intracranial findings Electronically signed by: Onel Sanabria M.D. 02/23/2019 11:01 PM XR chest 1V portable CLINICAL HISTORY: Confusion COMPARISON STUDY: No previous studies for comparison. FINDINGS: The cardiac and mediastinal contours are normal. There is no evidence of focal pulmonary consolidation. There is no evidence of failure. No pleural effusions are visualized.[ IMPRESSION: No active disease in the chest. Electronically signed by: Onel Sanabria M.D. 02/23/2019 10:51 PM Dictated: 02/23/192250 Transcribed: 02/23/192250 Consultation: A consultation was placed with the hospitalist, Dr Simpson. The case was discussed and diagnostics were reviewed. The patient was evaluated in the ER for further treatment. Exam and history seem consistent with episode of confusion with unclear etiology and asthma exacerbation. Medicine was consulted. Patient is agreeable to treatment plan of admission. Stable vital signs. Negative troponin. Negative EKG. Negative urine. Patient was not confused in the ER. I am unsure what the confusion episode was from. By the evaluation outlined above emergent etiologies such as infection, electrolyte abnormalities, cardiac sources, intracerebral event, toxologic, neurologic, abnormalities blood glucose, metabolic, as well as others were deemed relatively unlikely. The pt informed about the findings as listed above. All questions were answered and pleased with the treatment. Case reviewed with my attending The chart was completed utilizing [employer] Speech voice recognition software. Grammatical errors, random word insertions, pronoun errors, and incomplete sentences are an occassional consequence of this system due to software limitations, ambient noise, and hardware issues. Any formal questions or concerns about the content, text, or information contained within the body of this dictation should be directly addressed to the physician medical technician assistant for clarification. Impression & Plan Asthma with exacerbation, Episode of confusion Discharge Plan Visit Data Chief Complaint: Shortness of Breath/Dyspnea ED Provider: Consuelo Rubio ED Midlevel Provider: Laila Rosen Discharge Problem: Asthma with exacerbation, Episode of confusion Patient Disposition: Being Evaluated by Hospitalist Condition: Fair Forms Stand Alone Forms: My [facility] Prescriptions Prescriptions: No Action hydralazine 10 mg tablet 10 mg PO TID RF: 0 fluticasone propion-salmeterol [Advair Diskus] 250-50 mcg/dose blister with device 1 inh inhalation BID RF: 0 acetaminophen [Tylenol] 325 mg Tablet 650 mg PO Q4 PRN (Reason: Fever Or Pain) RF: 0 Lantus U-100 Insulin 100 unit/mL solution 64 unit subcut AMPM RF: 0 metoprolol tartrate [Lopressor] 100 mg tablet 100 mg PO BID RF: 0 olanzapine [Zyprexa] 10 mg tablet 5 mg PO BID RF: 0 amlodipine [Norvasc] 5 mg tablet 5 mg PO BID RF: 0 levothyroxine [Synthroid] 25 mcg tablet 25 mcg PO DAILY RF: 0 clonidine HCl [Catapres] 0.2 mg tablet 0.2 mg PO BID RF: 0 trazodone 100 mg tablet 100 mg PO HS RF: 0 meclizine [Motion Sickness (meclizine)] 25 mg tablet 25 mg PO BID PRN (Reason: DIZZY) RF: 0 gemfibrozil [Lopid] 600 mg tablet 600 mg PO BID RF: 0 naproxen sodium 220 mg Tablet 220 mg PO BID RF: 0 metoprolol tartrate [Lopressor] 50 mg tablet 50 mg PO BID RF: 0 omeprazole 20 mg capsule,delayed release(DR/EC) 20 mg PO DAILY RF: 0 folic acid 1 mg Tablet 1 mg PO DAILY RF: 0 albuterol sulfate [ProAir HFA] 90 mcg/actuation Hfa Aerosol Inhaler 2 puff INHALATION Q6H PRN (Reason: Shortness Of Breath Or Wheezing) RF: 0 escitalopram oxalate [Lexapro] 20 mg tablet 20 mg PO DAILY RF: 0 fenofibrate nanocrystallized [Tricor] 145 mg tablet 145 mg PO DAILY RF: 0 Tussin DM 10-100 mg/5 mL Liquid 10 ml PO Q4 PRN (Reason: Cough) RF: 0 Referrals Referrals: Tequila Nicholas [Primary Care Provider] - Discharge Problem: Asthma with exacerbation Qualifiers: Asthma severity: moderate Asthma persistence: persistent Qualified Code(s): J45.41 - Moderate persistent asthma with (acute) exacerbation
[2019-02-23 23:39] LABS: Amphetamines+Metham, Urine Neg (Neg); Barbiturates, Urine Neg (Neg); Benzodiazepine, Urine Neg (Neg); Cocaine, Urine Neg (Neg); MDMA (Ecstacy), Urine Neg (Neg); Methadone, Urine Neg (Neg); Opiate, Urine Neg (Neg); Phencyclidine, Urine Neg (Neg)
--- NOTE | 2019-02-24 00:04 | Emergency Department Note ---
ED Visit Note Patient seen and evaluated bedside after discussion with physician assistant professor of anthropology. Patient aware of all results and was in agreement with plan. Hospitalist came to bedside to evaluate the patient also. Patient hemodynamically stable otherwise, not overtly hypoxic. Patient awake and oriented here, no evidence for ongoing confusion or altered mental status. . : Asthma with exacerbation Qualifiers: Asthma severity: moderate Asthma persistence: persistent Qualified Code(s): J45.41 - Moderate persistent asthma with (acute) exacerbation
[2019-02-24 00:10] LABS: D Dimer 300 ug/L FEU (0-500); Partial Thromboplastin Time 26.5 Seconds (21.0-31.0)
--- NOTE | 2019-02-24 00:13 | History & Physical Report ---
Date of Service February 24, 2019 Assessment & Plan (1) SOB (shortness of breath): Episodic hypoxemia at personal care facility Compensated respiratory acidosis, hypercapnia on VBG hx CARYN (CPAP intolerance as per patient) Rule out pulmonary hypertension asthma, not in acute exacerbation hypertension, slightly elevated DM 2 insulin requiring, well-controlled as of recent hemoglobin A1c of 6.5 last August 2018 history traumatic brain injury as per records paranoid schizophrenia/mood/anxiety disorder, at baseline CRI, creatinine at baseline chronic anemia likely secondary to CKD, hemoglobin at baseline OBS Medical telemetry TTE RE S OB rule out for hypertension Pulmonary consult RE hypercapnia, hx CARYN (CPAP intolerance) Basal insulin, ISS BG goal 1 40-1 80, update hemoglobin A1c DVT prophylaxis. Heparin subcu Full code History of Present Illness Chief Complaint: Shortness of breath Primary Care Provider: View [place] History obtained from patient and records. Medical history significant for CARYN (CPAP intolerance as per patient), asthma, hypertension, DM 2 insulin requiring, history traumatic brain injury, paranoid schizophrenia, mood/anxiety disorder, CRI (baseline creatinine 1.7-1.8), chronic anemia (baseline hemoglobin of 12). One week history of intermittent shortness of breath even at rest as per patient. Patient denies chest pain or cough symptoms. Patient denies fluid retention. Oxygen noted to be low on sleeping at personal care facility. Patient noted to be somewhat confused. No new medications as per patient. Patient given IV steroids, nebs upon arrival at the ER for possible asthma exacerbation. Medical History as above Surgical History : Wound repair procedure Family History : Hypertension Personal/Social history : Non-smoker, no EtOH intake, disabled, personal-jail resident Allergies Allergy/AdvReac Type Severity Reaction Status Date / Time No Known Allergies Allergy Unverified 02/23/19 23:01 Home Medications Home Medications Medication Instructions Recorded Confirmed Type acetaminophen [Tylenol] 650 mg PO Q4 PRN 02/23/19 02/23/19 History albuterol sulfate [ProAir HFA] 2 puff INHALATION Q6H PRN 02/23/19 02/23/19 History amlodipine [Norvasc] 5 mg PO BID 02/23/19 02/23/19 History clonidine HCl [Catapres] 0.2 mg PO BID 02/23/19 02/23/19 History dextromethorphan-guaifenesin 10 ml PO Q4 PRN 02/23/19 02/23/19 History [Tussin DM] escitalopram oxalate [Lexapro] 20 mg PO DAILY 02/23/19 02/23/19 History fenofibrate nanocrystallized 145 mg PO DAILY 02/23/19 02/23/19 History [Tricor] fluticasone propion-salmeterol 1 inh INHALATION BID 02/23/19 02/23/19 History [Advair Diskus] folic acid 1 mg PO DAILY 02/23/19 02/23/19 History gemfibrozil [Lopid] 600 mg PO BID 02/23/19 02/23/19 History hydralazine 10 mg PO TID 02/23/19 02/23/19 History insulin glargine [Lantus U-100 64 unit SUBCUT AMPM 02/23/19 02/23/19 History Insulin] levothyroxine [Synthroid] 25 mcg PO DAILY 02/23/19 02/23/19 History meclizine [Motion Sickness 25 mg PO BID PRN 02/23/19 02/23/19 History (meclizine)] metoprolol tartrate [Lopressor] 50 mg PO BID 02/23/19 02/23/19 History metoprolol tartrate [Lopressor] 100 mg PO BID 02/23/19 02/23/19 History naproxen sodium 220 mg PO BID 02/23/19 02/23/19 History olanzapine [Zyprexa] 5 mg PO BID 02/23/19 02/23/19 History omeprazole 20 mg PO DAILY 02/23/19 02/23/19 History trazodone 100 mg PO HS 02/23/19 02/23/19 History Past Med/Surg History Medical History Anxiety Asthma Chronic kidney disease GERD (gastroesophageal reflux disease) High blood pressure Hyperlipidemia Paranoid schizophrenia Social History Preferred Language: Qatari Communication Ability: Effective 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 Beliefs That Will Affect Care: None Current Living Situation: Personal Care Facility Other Information That Helps Us Care for You: No Feels Safe at Home: Yes Safety Concerns: Feels Safe At This Time Smoking Status: Never smoker Tobacco Type: smokeless tobacco ; Do You Dip or Chew Tobacco: Yes ; Second Hand Exposure: No ; Tobacco Cessation Education Requested by Patient: No Hx Alcohol Use: No Hx Substance Use: No Review of Systems Review of Systems: As per HPI, all 10 systems reviewed, all other ROS negative Physical Exam Physical Exam: GENERAL: Comfortable, pleasant, obese, no respiratory distress SKIN: Pallor, warm HEENT: Pale palpebral conjunctivae, no ptosis, moist buccal mucosa NECK : Supple, short, no tenderness CHEST : Decreased breath sounds, no tenderness HEART : Bradycardic, no obvious murmurs ABDOMEN: distention, nontender EXTREMITIES : Minimal LE swelling, no LE tenderness, no other conspicuous deformities noted NEUROLOGIC : Coherent, no facial asymmetry, no other gross focality Results & Data Vital Signs (Past 12 Hours) Vital Signs Temp Pulse Pulse Resp BP BP Pulse Ox 02/23/19 23:31 58 L 18 115/78 96 02/23/19 22:35 94 02/23/19 22:22 36.5 C 66 20 151/61 H 93 Laboratory Results Laboratory Results WBC 4.00 K/uL (4.8-10.8) L 02/23/19 22:36 RBC 3.89 M/uL (4.7-6.1) L 02/23/19 22:36 Hgb 12.3 g/dL (14.0-18.0) L 02/23/19 22:36 Hct 35.3 % (42-52) L 02/23/19 22:36 MCV 90.7 fL (80-100) 02/23/19 22:36 MCH 31.6 pg (25-34) 02/23/19 22:36 MCHC 34.8 g/dL (32-36) 02/23/19 22:36 RDW Std Deviation 45.6 fL (36.4-46.3) 02/23/19 22:36 RDW Coeff of Jade 13.8 % (11.5-14.5) 02/23/19 22:36 Plt Count 209 K/uL (130-400) 02/23/19 22:36 MPV 10.3 fL (7.4-10.4) 02/23/19 22:36 Immature Gran % (Auto) 0.5 % 02/23/19 22:36 Neut % (Auto) 56.4 % 02/23/19 22:36 Lymph % (Auto) 32.5 % 02/23/19 22:36 Gilchrist % (Auto) 7.5 % 02/23/19 22:36 Eos % (Auto) 2.8 % 02/23/19 22:36 Baso % (Auto) 0.3 % 02/23/19 22:36 Immature Gran # (Auto) 0.02 K/uL (0.00-0.02) 02/23/19 22:36 Neut # (Auto) 2.26 K/uL (1.4-6.5) 02/23/19 22:36 Lymph # (Auto) 1.30 K/uL (1.2-3.4) 02/23/19 22:36 Gilchrist # (Auto) 0.30 K/uL (0.11-0.59) 02/23/19 22:36 Eos # (Auto) 0.11 K/uL (0-0.5) 02/23/19 22:36 Baso # (Auto) 0.01 K/uL (0-0.2) 02/23/19 22:36 APTT 26.5 Seconds (21.0-31.0) 02/23/19 22:36 PTT Ratio 1.0 02/23/19 22:36 D-Dimer 300 ug/L FEU (0-500) 02/23/19 22:36 Sodium 140 mmol/L (136-145) 02/23/19 22:36 Potassium 4.1 mmol/L (3.5-5.1) 02/23/19 22:36 Chloride 107 mmol/L (98-107) 02/23/19 22:36 Carbon Dioxide 29 mmol/L (21-32) 02/23/19 22:36 Anion Gap 4.0 (3-11) 02/23/19 22:36 BUN 20 mg/dl (7-18) H 02/23/19 22:36 Creatinine 1.71 mg/dl (0.6-1.4) H 02/23/19 22:36 Est Cr Clr Drug Dosing 85.0 ml/min 02/23/19 22:36 Est GFR ( Amer) 52.2 02/23/19 22:36 Est GFR (Non-Af Amer) 45.0 02/23/19 22:36 BUN/Creatinine Ratio 11.9 (10-20) 02/23/19 22:36 Glucose 132 mg/dl (70-99) H 02/23/19 22:36 Calcium 8.5 mg/dl (8.5-10.1) 02/23/19 22:36 Magnesium 2.0 mg/dl (1.8-2.4) 02/23/19 22:36 Total Bilirubin 0.5 mg/dl (0.2-1) 02/23/19 22:36 AST 24 U/L (15-37) 02/23/19 22:36 ALT 33 U/L (12-78) 02/23/19 22:36 Alkaline Phosphatase 56 U/L (45-117) 02/23/19 22:36 Total Creatine Kinase 246 U/L (39-308) 02/23/19 22:36 Troponin I < 0.015 ng/ml (0-0.045) 02/23/19 22:36 Total Protein 7.3 gm/dl (6.4-8.2) 02/23/19 22:36 Albumin 3.9 gm/dl (3.4-5.0) 02/23/19 22:36 Globulin 3.4 gm/dl (2.5-4.0) 02/23/19 22:36 Albumin/Globulin Ratio 1.1 (0.9-2) 02/23/19 22:36 TSH 1.770 uIu/ml (0.300-4.500) 02/23/19 22:36 Urine Color Yellow 02/23/19 23:09 Urine Appearance Clear (Clear) 02/23/19 23:09 Urine pH 5.0 (4.5-7.5) 02/23/19 23:09 Ur Specific [place] 1.009 (1.000-1.030) 02/23/19 23:09 Urine Protein Negative (Negative) 02/23/19 23:09 Urine Glucose (UA) Negative (Negative) 02/23/19 23:09 Urine Ketones Negative (Negative) 02/23/19 23:09 Urine Blood Negative (Negative) 02/23/19 23:09 Urine Nitrite Negative (Negative) 02/23/19 23:09 Urine Bilirubin Negative (Negative) 02/23/19 23:09 Urine Urobilinogen Negative (Negative) 02/23/19 23:09 Ur Leukocyte Esterase Negative (Negative) 02/23/19 23:09 Urine Opiates Screen Neg (Neg) 02/23/19 23:09 Ur Methadone, Qual Neg (Neg) 02/23/19 23:09 Urine Barbiturates Neg (Neg) 02/23/19 23:09 Ur Phencyclidine (PCP) Neg (Neg) 02/23/19 23:09 U Amphetamin/Meth Scrn Neg (Neg) 02/23/19 23:09 MDMA (Ecstasy) Screen Neg (Neg) 02/23/19 23:09 U Benzodiazepines Scrn Neg (Neg) 02/23/19 23:09 Ur Cocaine Metabolite Neg (Neg) 02/23/19 23:09 U Marijuana (THC) Screen Neg (Neg) 02/23/19 23:09 Ethyl Alcohol mg/dL < 3.0 mg/dl (0-3) 02/23/19 22:[address] head: 1. Frontal lobe atrophic change 2. No acute intracranial findings Chest x-ray showed no active disease EKG as per my interpretation : Rate 70, NSR, 1 AVB, normal axis, no ischemia
[2019-02-24 00:38] LABS: Base Excess VBG 3.1 mEq/L; HCO3 VBG 30 mmol/L; PCO2 VBG 56 mmHg (38-50); PO2 VBG 25 mmHg; pH VBG 7.35 (7.36-7.41)
[2019-02-24 00:42] LABS: Oxygen Saturation VBG < 60.0 %
[2019-02-24] MEDS ORDERED: DEXTROSE 50% 50 ML SYRINGE IV PRN (01:05)
[2019-02-24] MEDS ORDERED: CARBOHYDRATES FOR HYPOGLYCEMIA PO PRN (01:05)
[2019-02-24] MEDS ORDERED: GLUCOSE 40% GEL 15 GM TUBE PO PRN (01:05)
[2019-02-24] MEDS ORDERED: ALBUT/IPRATROP 3MG/0.5MG NEB 3 ML VIAL NEB PRN (01:05)
[2019-02-24] MEDS ORDERED: XOPENEX/ATROVENT 1.25mg/0.5MG NEB COMBO NEB PRN (01:05)
[2019-02-24] MEDS ORDERED: GLUCOSE 10 TABS/TUBE PO PRN (01:05)
[2019-02-24] MEDS ORDERED: TRAMADOL HCL 50 MG TABLET PO PRN (01:05)
[2019-02-24] MEDS ORDERED: LEVALBUTEROL 1.25MG/0.5ML NEB INH PRN (01:05)
[2019-02-24] MEDS ORDERED: ACETAMINOPHEN 325 MG TAB PO PRN ×2 (01:05)
[2019-02-24] MEDS ORDERED: IPRATROPIUM BROMIDE NEB SOLN 0.02% 2.5 ML VIAL INH PRN (01:05)
[2019-02-24] MEDS ORDERED: GLUCAGON FOR INJ 1 MG VIAL SQ PRN (01:05)
[2019-02-24] MEDS ORDERED: MECLIZINE HCL 25 MG TAB PO PRN (01:05)
[2019-02-24] MEDS: INSULIN ASPART 100 UNITS/ML 3 ML PEN SC SCH ×5 (01:36→20:37)
[2019-02-24] MEDS: LEVOTHYROXINE SODIUM 25 MCG TABLET PO SCH (05:50)
[2019-02-24] MEDS: HEPARIN SOD 5,000 UNIT/0.5 ML VIAL SQ SCH ×3 (05:50→20:35)
[2019-02-24 06:10] LABS: Estimated Average Glucose 140 mg/dl; Hemoglobin A1C 6.5 % (4.5-5.6)
[2019-02-24 06:43] LABS: Basophils # (auto) 0.01 K/uL (0-0.2); Basophils % (auto) 0.3 %; Eosinophils # (auto) 0.01 K/uL (0-0.5); Eosinophils % (auto) 0.3 %; Hematocrit (blood only) 36.8 % (42-52); Hemoglobin 12.8 g/dL (14.0-18.0); Immature Granulocytes # (auto) 0.01 K/uL (0.00-0.02); Immature Granulocytes % (auto) 0.3 %; Lymphocytes # (auto) 0.59 K/uL (1.2-3.4); Lymphocytes % (auto) 15.1 %; Mean Corpuscular Hgb Conc 34.8 g/dL (32-36); Mean Corpuscular Volume 90.6 fL (80-100); Mean Platelet Volume 9.6 fL (7.4-10.4); Monocytes # (auto) 0.01 K/uL (0.11-0.59); Monocytes % (auto) 0.3 %; Neutrophils # (auto) 3.28 K/uL (1.4-6.5); Neutrophils % (auto) 83.7 %; Platelet Count 212 K/uL (130-400); RDW Coefficient of Variation 13.7 % (11.5-14.5); RDW Standard Deviation 45.7 fL (36.4-46.3); Red Blood Count 4.06 M/uL (4.7-6.1); White Blood Count 3.91 K/uL (4.8-10.8)
[2019-02-24 06:54] LABS: INR 1.1 (0.9-1.1); Prothrombin Time 10.9 Seconds (9.0-12.0)
[2019-02-24] MEDS ORDERED: PERFLUTREN LIPID MICROSPHERE (DEFINITY) IV ONE (07:07)
[2019-02-24 07:23] LABS: BUN Creatinine Ratio 14.2 (10-20); Blood Urea Nitrogen 24 mg/dl (7-18); Calcium 8.8 mg/dl (8.5-10.1); Carbon Dioxide 26 mmol/L (21-32); Chloride 107 mmol/L (98-107); Creatinine Clr Calc Pharmacy 86.2 ml/min; Est GFR (African American) 53.7; Est GFR (Non-African American) 46.3; Glucose 172 mg/dl (70-99); Potassium 4.8 mmol/L (3.5-5.1); Sodium 139 mmol/L (136-145)
[2019-02-24 07:26] LABS: Troponin I < 0.015 ng/ml (0-0.045)
[2019-02-24] MEDS: AMLODIPINE BESYLATE 5 MG TAB PO SCH ×2 (08:06→20:36)
[2019-02-24] MEDS: FLUTICASONE/SALMETEROL 250/50 (ADVAIR) 14 PUFF/1 INHALER INH SCH ×2 (08:06→20:34)
[2019-02-24] MEDS: METOPROLOL TARTRATE 100 MG TAB PO SCH ×2 (08:06→20:36)
[2019-02-24] MEDS: HydrALAZINE 10 MG TAB PO SCH ×3 (08:07→20:35)
[2019-02-24] MEDS: cloNIDine HCl 0.1 MG TAB PO SCH ×2 (08:08→20:35)
[2019-02-24] MEDS: ESCITALOPRAM OXALATE 20 MG TAB PO SCH (08:08)
[2019-02-24] MEDS: FENOFIBRATE NANOCRYSTALLIZED 145 MG TABLET PO SCH (08:08)
[2019-02-24] MEDS: FOLIC ACID 1 MG TAB PO SCH (08:09)
[2019-02-24] MEDS: PANTOprazole 40 MG TAB PO SCH (08:09)
[2019-02-24] MEDS: OLANZapine 5 MG TABLET PO SCH ×2 (08:09→20:35)
[2019-02-24] MEDS: GEMFIBROZIL 600 MG TAB PO SCH ×2 (08:09→20:35)
[2019-02-24] MEDS: INSULIN GLARGINE 100 UNIT/ML VIAL SQ SCH ×2 (08:11→20:39)
--- NOTE | 2019-02-24 10:43 | Pulmonary Consultation ---
Date of Consultation February 24, 2019 Assessment & Plan (1) SOB (shortness of breath): The etiology of his shortness of breath is not clear. He carries a history of asthma but did not have any wheezes on exam. He is severely obese. He likely has obesity hypoventilation syndrome and this may be worsened with the history of sleep apnea which is untreated. The venous blood gas was abnormal but it is not oftentimes a good assessment of how the arterial PCO2 is. I believe an arterial blood gas should be done. If his PCO2 is significantly elevated it might explain the confusion he had. I spoke with the patient about the sleep apnea. I asked him if he would be willing to reconsider treatment while he is here and he indicated he would. We will ask respiratory to give him a trial of BiPAP for an hour or 2 and see how it goes. If he would be agreeable to further treatment, he would need to have a new sleep study done as an outpatient. Obviously a weight reduction program would be advised. (2) Asthma: (3) CARYN (obstructive sleep apnea): (4) Obesity hypoventilation syndrome: History of Present Illness Attending Physician: Dougie Little MD History of Present Illness Pulmonary consultation is requested regarding shortness of breath and confusion. The patient is a 53-year-old male who he resides at a personal assisted called [facility]. He states that the nurse awakened him last evening and he seemed confused to her and she felt he should come to the ER. He thinks that she just started him from sleep and in a short time he reoriented. He has noticed some increasing shortness of breath recently. This is often at rest but sometimes with exertion. The patient is not a good historian. He admits to having occasional cough. He does not bring up any sputum. He has a history of asthma diagnosed about 6 years ago. He has been on Advair and a rescue inhaler and he states they help. He has not had any recent wheezing. He denies chest pains. He denies chills fevers or sweats. The patient was somewhat difficult to assess. He carries a diagnosis of paranoid schizophrenia. I am not certain if he has MR or not. He states that he goes to what he refers to as [facility] on a daily basis. This apparently is a place where they can do some work. 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 I was not exactly clear what he does. He does have a history of sleep apnea. He states that diagnosis was made 6 years ago. He was intolerant of CPAP. He states that it was too loud. The mask was not comfortable. He denies being claustrophobic. I do not think he likely had the machine for very long. The patient denies excessive daytime somnolence. He insists that he has no difficulty staying awake. I found this quite surprising because multiple times I passed by his room here in the hospital I did notice that he was sleeping and even when I was talking with him and examining him he was yawning constantly. The patient states he goes to bed typically 10:30 PM. He falls asleep quickly. He has an average of one awakening to go to the bathroom. He goes back to sleep quickly. He gets up about 6 AM on the days he is going to [facility]. As noted he denies any sleepiness throughout the day and he denies napping. The patient has never smoked. He denies alcohol use. He denies having had surgeries. Family history is that father in his 70s with congestive heart failure in mother living age 87 with congestive heart failure. Allergies Allergy/AdvReac Type Severity Reaction Status Date / Time No Known Allergies Allergy Unverified 02/23/19 23:01 Home Medications Home Medications Medication Instructions Recorded Confirmed Type acetaminophen [Tylenol] 650 mg PO Q4 PRN 02/23/19 02/23/19 History albuterol sulfate [ProAir HFA] 2 puff INHALATION Q6H PRN 02/23/19 02/23/19 History amlodipine [Norvasc] 5 mg PO BID 02/23/19 02/23/19 History clonidine HCl [Catapres] 0.2 mg PO BID 02/23/19 02/23/19 History dextromethorphan-guaifenesin 10 ml PO Q4 PRN 02/23/19 02/23/19 History [Tussin DM] escitalopram oxalate [Lexapro] 20 mg PO DAILY 02/23/19 02/23/19 History fenofibrate nanocrystallized 145 mg PO DAILY 02/23/19 02/23/19 History [Tricor] fluticasone propion-salmeterol 1 inh INHALATION BID 02/23/19 02/23/19 History [Advair Diskus] folic acid 1 mg PO DAILY 02/23/19 02/23/19 History gemfibrozil [Lopid] 600 mg PO BID 02/23/19 02/23/19 History hydralazine 10 mg PO TID 02/23/19 02/23/19 History insulin glargine [Lantus U-100 64 unit SUBCUT AMPM 02/23/19 02/23/19 History Insulin] levothyroxine [Synthroid] 25 mcg PO DAILY 02/23/19 02/23/19 History meclizine [Motion Sickness 25 mg PO BID PRN 02/23/19 02/23/19 History (meclizine)] metoprolol tartrate [Lopressor] 50 mg PO BID 02/23/19 02/23/19 History metoprolol tartrate [Lopressor] 100 mg PO BID 02/23/19 02/23/19 History naproxen sodium 220 mg PO BID 02/23/19 02/23/19 History olanzapine [Zyprexa] 5 mg PO BID 02/23/19 02/23/19 History omeprazole 20 mg PO DAILY 02/23/19 02/23/19 History trazodone 100 mg PO HS 02/23/19 02/23/19 History Patient History Medical History Anxiety Asthma Chronic kidney disease GERD (gastroesophageal reflux disease) High blood pressure Hyperlipidemia Paranoid schizophrenia Social History Preferred Language: Wolof Communication Ability: Effective 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 Patient was not the best historian. Physical Exam Physical Exam: Patient is a 53-year-old male who is markedly obese. His weight is 167.8 kg. BMI is 46. He appeared sleepy. He was cooperative. He was oriented. He was in no distress. The patient has a deviated right eye laterally. He states he has diminished vision in this eye. Pupils react bilaterally. Nares mildly congested with mucus noted on the right. Mouth exam shows an absence of teeth. Pharynx is a Mallampati grade 4. Tongue is larger than normal. Neck is very large. No lymph nodes palpable. The patient has facial hair. Cardiac rate was 66/min. Rhythm was regular. Blood pressure 141/76. The chest showed diminished excursions. I suspect this is related to obesity. Breath sounds are diffusely diminished and I suspect this is due to obesity. No active wheezes, rales, or rhonchi heard. Respiratory rate 18. Saturation 94% on room air. Abdomen is obese. Bowel sounds present. There was no tenderness to palpation, masses, or organomegaly. Extremities showed trace nonpitting edema of the lower extremities. No cyanosis or clubbing noted. Results & Data Vital Signs (Past 12 Hours) Vital Signs Temp Pulse Pulse Resp BP BP BP 02/24/19 10:00 66 02/24/19 07:19 36.7 C 61 17 141/76 H 02/24/19 04:00 36.7 C 60 18 149/85 H 02/24/19 01:12 36.5 C 57 L 16 152/80 H 02/23/19 23:31 58 L 18 115/78 02/23/19 22:35 02/23/19 22:22 36.5 C 66 20 151/61 H Pulse Ox 02/24/19 10:00 02/24/19 07:19 94 02/24/19 04:00 95 02/24/19 01:12 95 02/23/19 23:31 96 02/23/19 22:35 94 02/23/19 22:22 93 Laboratory Results White count is 3.91. Hemoglobin 12.8. Platelets 212,000. Sodium was 139, potassium 4.8, chloride 107, bicarb 26. BUN was 24 with a creatinine of 1.67. Blood sugar was 172. Ammonia level was elevated at 42.2. AST was normal at 24. ALT was normal at 33. Alk phos was normal at 56. Bilirubin normal at 0.5. Venous blood gas showed pH 7.35 PCO2 56 PO2 25. Urinalysis negative Diagnostic Findings Chest x-ray showed no active disease. CT of the brain showed frontal lobe atrophic changes with no acute intracranial findings. EKG showed a sinus rhythm with a rate of 68. Nonspecific ST and T wave changes noted. PG Care Time/CCT Total # of Minutes Spent Total Time Spent with Patient: Total time spent is greater than 50% in coordination of care (as documented) at patient's floor/unit and/or counseling patient:
[2019-02-24 12:04] LABS: Base Excess ABG 0.5 mEq/L (-9-1.8); HCO3 ABG 25 mmol/L (19-24); Oxygen Saturation ABG 92.5 % (90-95); PCO2 ABG 40 mmHg (35-46); PO2 ABG 67 mm/Hg (80-95); pH ABG 7.41 (7.35-7.45)
[2019-02-24 12:05] LABS: Allen Test Pos (Pos)
--- NOTE | 2019-02-24 18:10 | Hospitalist Progress Note ---
Date of Service February 24, 2019 Assessment & Plan (1) SOB (shortness of breath): 53-year-old male who he resides at a personal long term called [facility]. He states that the nurse awakened him last evening and he seemed confused to her and she felt he should come to the ER shortness of breath likely from obstructive sleep apnea possible obesity hypoventilation syndrome -as per admitting hospitalist, described as Episodic hypoxemia at personal care facility -normal PH of 7.41 on ABG on admission -since being in the hospital so far, patient has not had any acute respiratory events -patient agrees to remain monitored in the hospital and trial CPAP with sleep at night -echocardiogram with ejection fraction 55% to 60% and no reported pulmonary hypertension Obesity with BMI 46.2 -patient encouraged to ambulate -on gemfibrozil and fenofibrate History of asthma -not in acute exacerbation, no wheezing -on Advair chronic anemia -Hgb stable above 12 Chronic kidney disease -monitor renal function Hypertension -continue home dose amlodipine and clonidine and hydralazine -unclear as to why patient is not on an HAYLEY inhibitor or ARB in a patient with hypertension and chronic kidney disease and Type 2 diabetes mellitus but will defer to primary care doctor to adjust the blood pressure regimen if there are no contraindications for patient to be on HAYLEY inhibitor or ARB Type 2 diabetes mellitus with senior living current use of insulin -HbA1c 6.5 -continue insulin including long acting glargine 64 units BID Hypothyroidism -TSH normal -continue home dose levothyroxine 25 mcg daily history traumatic brain injury as per records paranoid schizophrenia/mood/anxiety disorder -mood stable on trazadone, olanzapine, escitalopram, continue DVT prophylaxis. Heparin subcu Full code Subjective Patient has been breathing on room air. he reports he has been able to ambulate. denies shortness of breath. he agrees to remain monitored in the hospital and trial CPAP with sleep at night. no chest pain. no abdomen pain. no vomiting. no headache. no dizziness Physical Exam Constitutional: + obese Eyes: PERRL, conjunctivae normal, anicteric sclerae EOM intact bilaterally ENMT: external ear and nose normal, oropharynx normal Neck: normal visual inspection and trachea midline Respiratory: normal respiratory effort, lungs clear to auscultation Cardiovascular: Rate/Rhythm: regular rate and regular rhythm Gastrointestinal (Abdomen): normal bowel sounds, soft, nontender, no hepatosplenomegaly Musculoskeletal: Head/Neck/Chest: normocephalic and head atraumatic Neurologic: PERRL, EOMI, accommodation nl, no face palsy, no dysarthria CN's II-XI intact bilaterally Psychiatric: A+Ox3, euthymic affect Results & Data Vital Signs (Past 12 Hours) Vital Signs Temp Pulse Pulse Resp BP BP Pulse Ox 02/24/19 15:26 36.8 C 83 16 158/58 H 93 02/24/19 14:15 80 119/67 02/24/19 12:16 37 C 78 18 130/77 94 02/24/19 10:00 66 02/24/19 07:19 36.7 C 61 17 141/76 H 94
[2019-02-24] MEDS ORDERED: TRAZODONE HCL 100 MG TAB PO SCH (21:00)
[2019-02-25 06:03] LABS: Base Excess VBG 3.5 mEq/L; Oxygen Saturation VBG 91.5 %; pH VBG 7.43 (7.36-7.41)
[2019-02-25] MEDS: LEVOTHYROXINE SODIUM 25 MCG TABLET PO SCH (06:12)
[2019-02-25] MEDS: HEPARIN SOD 5,000 UNIT/0.5 ML VIAL SQ SCH ×2 (06:12→14:05)
[2019-02-25 06:44] LABS: Albumin Level 3.5 gm/dl (3.4-5.0); BUN Creatinine Ratio 19.6 (10-20); Bilirubin,Total 0.4 mg/dl (0.2-1); Calcium 8.5 mg/dl (8.5-10.1); Creatinine Clr Calc Pharmacy 90.6 ml/min; Est GFR (Non-African American) 49.2; Globulin 3.4 gm/dl (2.5-4.0); Total Protein 6.9 gm/dl (6.4-8.2)
[2019-02-25] MEDS: FLUTICASONE/SALMETEROL 250/50 (ADVAIR) 14 PUFF/1 INHALER INH SCH (08:32)
[2019-02-25] MEDS: INSULIN ASPART 100 UNITS/ML 3 ML PEN SC SCH ×2 (08:32→11:59)
[2019-02-25] MEDS: INSULIN GLARGINE 100 UNIT/ML VIAL SQ SCH (08:34)
[2019-02-25] MEDS: FOLIC ACID 1 MG TAB PO SCH (08:35)
[2019-02-25] MEDS: HydrALAZINE 10 MG TAB PO SCH ×2 (08:35→14:05)
[2019-02-25] MEDS: ESCITALOPRAM OXALATE 20 MG TAB PO SCH (08:35)
[2019-02-25] MEDS: AMLODIPINE BESYLATE 5 MG TAB PO SCH (08:35)
[2019-02-25] MEDS: FENOFIBRATE NANOCRYSTALLIZED 145 MG TABLET PO SCH (08:36)
[2019-02-25] MEDS: PANTOprazole 40 MG TAB PO SCH (08:36)
[2019-02-25] MEDS: GEMFIBROZIL 600 MG TAB PO SCH (08:36)
[2019-02-25] MEDS: OLANZapine 5 MG TABLET PO SCH (08:36)
[2019-02-25] MEDS: METOPROLOL TARTRATE 100 MG TAB PO SCH (08:36)
[2019-02-25] MEDS: cloNIDine HCl 0.1 MG TAB PO SCH (08:37)
--- NOTE | 2019-02-25 10:22 | Pulmonology Progress Note ---
Date of Service February 25, 2019 Assessment & Plan (1) CARYN (obstructive sleep apnea): The patient has a history of sleep apnea but could not tolerate CPAP. He did well however last evening. We cannot order him CPAP without doing a sleep study once again because it has been such a long time since he was previously treated. This was discussed with Dr. Little. I will order an outpatient sleep study after the patient is discharged and I will make arrangements to have follow-up with me to review the study and get treated. Obviously a weight reduction program is advised. (2) Asthma: Seems to be stable. He can continue with the Advair and albuterol HFA as he was previously doing as an outpatient. (3) SOB (shortness of breath): The shortness of breath is resolved. The etiology of the dyspnea at the t alejandro of his admission is unclear. Subjective The patient is feeling well. He denies any shortness of breath. He wore CPAP last night and was quite comfortable. He states that he slept good and he feels more alert. He has no cough. There is been no chest pains. Physical Exam Physical Exam: The patient is a 53-year-old male who was cooperative alert and oriented. Weight today 167 kg. Patient has a deviated right eye laterally. Pupils are reactive. Nares mildly congested. Mouth exam shows an absence of teeth. Pharynx is a Mallampati grade 4. Tongue is larger than normal. Palpation of the neck reveals no lymph nodes. The neck is very large. Cardiac rate 64/min. Rhythm regular. Blood pressure 136/92. Lung davila are clear bilaterally. Respiratory rate 20. Saturation 96% on room air. Extremities showed no cyanosis or clubbing. There was trace nonpitting edema. Results & Data Vital Signs (Past 12 Hours) Vital Signs Temp Pulse Pulse Resp BP Pulse Ox 02/25/19 08:36 64 02/25/19 07:27 36.6 C 61 20 136/92 96 02/25/19 05:48 53 L 20 96 02/25/19 04:35 36.1 C L 57 L 20 128/72 97 02/25/19 00:00 76 02/24/19 23:00 36.6 C 70 20 131/74 97 Laboratory Results Arterial blood gas done yesterday on room air showed pH 7.41, PCO2 40, PO2 67. Blood sugar this morning 112. BUN was elevated at 31 with creatinine 1.59. PG Care Time/CCT Total # of Minutes Spent Total Time Spent with Patient: Total time spent is greater than 50% in coordination of care (as documented) at patient's floor/unit and/or counseling patient:
--- NOTE | 2019-02-25 11:05 | Hospitalist Progress Note ---
Date of Service February 25, 2019 Assessment & Plan (1) SOB (shortness of breath): 53-year-old male who he resides at a personal long term called [facility]. He states that the nurse awakened him last evening and he seemed confused to her and she felt he should come to the ER shortness of breath likely from obstructive sleep apnea possible obesity hypoventilation syndrome was considered but as per discussions with pulmonary physician Dr. Billings that this diagnosis is ruled out with good bl ood gases -as per admitting hospitalist, described as Episodic hypoxemia at personal care facility -normal PH of 7.41 on ABG on admission -since being in the hospital so far, patient has not had any acute respiratory events -echocardiogram with ejection fraction 55% to 60% and no reported pulmonary hypertension -patient was monitored in the hospital and trial CPAP with sleep at night and did well -[facility] Dr. Billings will order an outpatient sleep study after the patient is discharged and make arrangements to have follow-up with me to review the study and get treated in order to get patient qualified for outpatient CPAP vs BIPAP treatment for obstructive sleep apnea. After hospital discharge, patient should call [phone] which is a main phone number for the [facility] on [address] [facility], [address] [place] [address] to confirm time and location for the clinic follow up and testing Obesity with BMI 46 -patient encouraged to ambulate -on gemfibrozil and fenofibrate -advise low fat, diabetic controlled diet, weight reduction program with primary care doctor History of asthma -not in acute exacerbation, no wheezing -on Advair chronic anemia -Hgb stable above 12 Chronic kidney disease -renal function stable Hypertension -continue home dose amlodipine and clonidine and hydralazine -unclear as to why patient is not on an HAYLEY inhibitor or ARB in a patient with hypertension and chronic kidney disease and Type 2 diabetes mellitus but will defer to primary care doctor to adjust the blood pressure regimen if there are no contraindications for patient to be on HAYLEY inhibitor or ARB 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 Heparin subcu Full code Discharge Diagnosis shortness of breath likely from obstructive sleep apnea, Obesity with BMI 46, Hypertension, Type 2 diabetes mellitus with rodent exterminator current use of insulin, Chronic Kidney disease Subjective patient was monitored in the hospital and trial CPAP with sleep at night and did well. no desaturations. patient reports he has been ambulatory. he is ready to go home. Patient denies palpitations. no headache. no dizziness. no chest pain. no palpitations. no abdominal pain Physical Exam Constitutional: + obese Eyes: PERRL, conjunctivae normal, anicteric sclerae EOM intact bilaterally ENMT: external ear and nose normal, oropharynx normal Neck: normal visual inspection and trachea midline Respiratory: normal respiratory effort, lungs clear to auscultation Cardiovascular: Rate/Rhythm: regular rate and regular rhythm Gastrointestinal (Abdomen): normal bowel sounds, soft, nontender, no hepatosplenomegaly Musculoskeletal: Head/Neck/Chest: normocephalic and head atraumatic Neurologic: PERRL, EOMI, accommodation nl, no face palsy, no dysarthria CN's II-XI intact bilaterally Psychiatric: A+Ox3, euthymic affect Results & Data Vital Signs (Past 12 Hours) Vital Signs Temp Pulse Pulse Resp BP Pulse Ox 02/25/19 08:36 64 02/25/19 07:27 36.6 C 61 20 136/92 96 02/25/19 05:48 53 L 20 96 02/25/19 04:35 36.1 C L 57 L 20 128/72 97 02/25/19 00:00 76
--- NOTE | 2019-02-25 11:26 | Discharge Summary ---
Date of Service February 25, 2019 Admission HPI Per Admitting Provider History obtained from patient and records. Medical history significant for CARYN (CPAP intolerance as per patient), asthma, hypertension, DM 2 insulin requiring, history traumatic brain injury, paranoid schizophrenia, mood/anxiety disorder, CRI (baseline creatinine 1.7-1.8), chronic anemia (baseline hemoglobin of 12). One week history of intermittent shortness of breath even at rest as per patient. Patient denies chest pain or cough symptoms. Patient denies fluid retention. Oxygen noted to be low on sleeping at personal care facility. Patient noted to be somewhat confused. No new medications as per patient. Patient given IV steroids, nebs upon arrival at the ER for possible asthma exacerbation. Medical History as above Surgical History : Wound repair procedure Family History : Hypertension Personal/Social history : Non-smoker, no EtOH intake, disabled, personal-[facility] resident Admission Exam Per Admitting Provider GENERAL: Comfortable, pleasant, obese, no respiratory distress SKIN: Pallor, warm HEENT: Pale palpebral conjunctivae, no ptosis, moist buccal mucosa NECK : Supple, short, no tenderness CHEST : Decreased breath sounds, no tenderness HEART : Bradycardic, no obvious murmurs ABDOMEN: distention, nontender EXTREMITIES : Minimal LE swelling, no LE tenderness, no other conspicuous deformities noted NEUROLOGIC : Coherent, no facial asymmetry, no other gross focality Principal Diagnosis shortness of breath likely from obstructive sleep apnea, Obesity with BMI 46, Hypertension, Type 2 diabetes mellitus with usp current use of insulin, Chronic Kidney disease Discharge Exam Constitutional + obese Eyes PERRL, conjunctivae normal, anicteric sclerae EOM intact bilaterally ENMT external ear and nose normal, oropharynx normal Neck normal visual inspection and trachea midline Respiratory normal respiratory effort, lungs clear to auscultation Cardiovascular Rate/Rhythm: regular rate and regular rhythm Gastrointestinal (Abdomen) normal bowel sounds, soft, nontender, no hepatosplenomegaly Musculoskeletal Head/Neck/Chest: normocephalic and head atraumatic Neurologic PERRL, EOMI, accommodation nl, no face palsy, no dysarthria CN's II-XI intact bilaterally Psychiatric A+Ox3, euthymic affect Discharge Data Allergies Allergy/AdvReac Type Severity Reaction Status Date / Time No Known Allergies Allergy Unverified 02/23/19 23:01 Consultations 02/23/19 23:42 ED Decision to Admit Stat 02/24/19 01:23 Consult Pulmonology Routine Ordered Studies 02/23/19 22:28 CT head/brain wo con Urgent Hospital Course (1) SOB (shortness of breath): 53-year-old male who he resides at a personal [facility] called [facility]. He states that the nurse awakened him last evening and he seemed confused to her and she felt he should come to the ER shortness of breath likely from obstructive sleep apnea possible obesity hypoventilation syndrome was considered but as per discussions with pulmonary physician Dr. Billings that this diagnosis is ruled out with good blood gases -as per admitting hospitalist, described as Episodic hypoxemia at personal care facility -normal PH of 7.41 on ABG on admission -since being in the hospital so far, patient has not had any acute respiratory events -echocardiogram with ejection fraction 55% to 60% and no reported pulmonary hypertension -patient was monitored in the hospital and trial CPAP with sleep at night and did well -[facility] Dr. Billings will order an outpatient sleep study after the patient is discharged and make arrangements to have follow-up with me to review the study and get treated in order to get patient qualified for outpatient CPAP vs BIPAP treatment for obstructive sleep apnea. After hospital discharge, patient should call [phone] which is a main phone number for the [facility] pulmonary clinic on [address] [facility] [facility], [address] [place] [address] to confirm time and location for the clinic follow up and testing Obesity with BMI 46 -patient encouraged to ambulate -on gemfibrozil and fenofibrate -advise low fat, diabetic controlled diet, weight reduction program with primary care doctor History of asthma -not in acute exacerbation, no wheezing -on Advair chronic anemia -Hgb stable above 12 Chronic kidney disease -renal function stable Hypertension -continue home dose amlodipine and clonidine and hydralazine -unclear as to why patient is not on an HAYLEY inhibitor or ARB in a patient with hypertension and chronic kidney disease and Type 2 diabetes mellitus but will defer to primary care doctor to adjust the blood pressure regimen if there are no contraindications for patient to be on HAYLEY inhibitor or ARB Type 2 diabetes mellitus with usp current use of insulin -HbA1c 6.5 -continue insulin including long acting glargine 64 units BID Hypothyroidism -TSH normal -continue home dose levothyroxine 25 mcg daily history traumatic brain injury as per records paranoid schizophrenia/mood/anxiety disorder -mood stable on trazadone, olanzapine, escitalopram, continue DVT prophylaxis. Heparin subcu Full code Discharge Diagnosis shortness of breath likely from obstructive sleep apnea, Obesity with BMI 46, Hypertension, Type 2 diabetes mellitus with usp current use of insulin, Chronic Kidney disease Total Time Total Time Spent Total Time Spent (In Minutes): 40 minutes Total Time Includes: Examination of the Patient, Discharge Planning, Medication Reconciliation and Communication With Other Providers Discharge Plan Discharge Items Patient Disposition: [facility] Reason For Visit: SOB Discharge Diagnosis: shortness of breath likely from obstructive sleep apnea, Obesity with BMI 46, Hypertension, Type 2 diabetes mellitus with usp current use of insulin, Chronic Kidney disease Condition: Fair Discharge Goals: Diagnostic testing and Improve disease control Activity: Resume your previous activity Non-emergency contact: Primary Care Provider and Palliative Care Nurse Practitioner Call non-emergency contact if: you have any medication questions Follow-up/Referrals: Tequila Nicholas [Primary Care Provider] - Diet: Carb Consistent or DM2 and Low Fat Addtl Provider Instructions: patient should follow up with primary care doctor in 1 week [facility] Dr. Billings will order an outpatient sleep study after the patient is discharged and make arrangements to have follow-up with me to review the study and get treated in order to get patient qualified for outpatient CPAP vs BIPAP treatment for obstructive sleep apnea. After hospital discharge, patient should call [phone] which is a main phone number for the [facility] pulmonary clinic on [address] [address] [facility], [address] [place] [address] to confirm time and location for the clinic follow up and testing advise low fat, diabetic controlled diet, weight reduction program with primary care doctor continue home dose amlodipine and clonidine and hydralazine (unclear as to why patient is not on an HAYLEY inhibitor or ARB in a patient with hypertension and chronic kidney disease and Type 2 diabetes mellitus but will defer to primary care doctor to adjust the blood pressure regimen if there are no contraindications for patient to be on HAYLEY inhibitor or ARB) Prescriptions: Continued hydralazine 10 mg tablet 10 mg PO TID RF: 0 fluticasone propion-salmeterol [Advair Diskus] 250-50 mcg/dose blister with device 1 inh inhalation BID RF: 0 acetaminophen [Tylenol] 325 mg Tablet 650 mg PO Q4 PRN (Reason: Fever Or Pain) RF: 0 Lantus U-100 Insulin 100 unit/mL solution 64 unit subcut AMPM RF: 0 metoprolol tartrate [Lopressor] 100 mg tablet 100 mg PO BID RF: 0 olanzapine [Zyprexa] 10 mg tablet 5 mg PO BID RF: 0 amlodipine [Norvasc] 5 mg tablet 5 mg PO BID RF: 0 levothyroxine [Synthroid] 25 mcg tablet 25 mcg PO DAILY RF: 0 clonidine HCl [Catapres] 0.2 mg tablet 0.2 mg PO BID RF: 0 trazodone 100 mg tablet 100 mg PO HS RF: 0 meclizine [Motion Sickness (meclizine)] 25 mg tablet 25 mg PO BID PRN (Reason: DIZZY) RF: 0 gemfibrozil [Lopid] 600 mg tablet 600 mg PO BID RF: 0 naproxen sodium 220 mg Tablet 220 mg PO BID RF: 0 metoprolol tartrate [Lopressor] 50 mg tablet 50 mg PO BID RF: 0 omeprazole 20 mg capsule,delayed release(DR/EC) 20 mg PO DAILY RF: 0 folic acid 1 mg Tablet 1 mg PO DAILY RF: 0 albuterol sulfate [ProAir HFA] 90 mcg/actuation Hfa Aerosol Inhaler 2 puff INHALATION Q6H PRN (Reason: Shortness Of Breath Or Wheezing) RF: 0 escitalopram oxalate [Lexapro] 20 mg tablet 20 mg PO DAILY RF: 0 fenofibrate nanocrystallized [Tricor] 145 mg tablet 145 mg PO DAILY RF: 0 Tussin DM 10-100 mg/5 mL Liquid 10 ml PO Q4 PRN (Reason: Cough) RF: 0 Stand-Alone Forms: [facility] Discharge Orders: Discharge Order (Routine); Ordered 02/25/19 Ordered By: Dougie Little Admission Data Admit Date/Time: 02/24/19 00:19 Attending Provider: Dougie Little Admit Provider: [place] Primary Care Provider: Tequila Nicholas Other Providers: [place] ; [place] Service: Telemetry Medical
== END 2019-02-25 14:18 | disposition home or self-care (01) ==
LOC: ED 22:13 → 2N 22:13 → SUATTDRO 02-24 00:19 → 2N 02-24 00:38

== ENCOUNTER 2022-10-01 18:16 | Inpatient (IN) ==
[2022-10-01] MEDS ORDERED: ACETAMINOPHEN 1,000 MG/100 ML VIAL IV STA (18:44)
[2022-10-01] MEDS ORDERED: SODIUM CHLORIDE 0.9% 1000ML 1,000 ML IV STA (18:44)
[2022-10-01] MEDS ORDERED: fentaNYL citrate PF 100 MCG/2 ML VIAL IV STA (18:45)
[2022-10-01] MEDS ORDERED: ONDANSETRON INJ 2 MG/ML 2 ML VIAL IV STA (18:45)
[2022-10-01 19:02] LABS: Basophils # (auto) 0.02 K/uL (0-0.2); Basophils % (auto) 0.1 %; Hematocrit (blood only) 31.8 % (42.0-52.0); Hemoglobin 10.8 g/dl (14.0-18.0); Immature Granulocytes # (auto) 0.08 K/uL (0.01-0.20); Immature Granulocytes % (auto) 0.6 %; Lymphocytes # (auto) 1.22 K/uL (1.2-3.4); Lymphocytes % (auto) 8.8 %; Mean Corpuscular Hemoglobin 31.9 pg (25.0-34.0); Mean Corpuscular Volume 93.8 fL (80.0-100.0); Mean Platelet Volume 10.3 fL (9.4-12.4); Monocytes # (auto) 0.85 K/uL (0.11-0.59); Monocytes % (auto) 6.2 %; Neutrophils # (auto) 11.63 K/uL (1.40-6.50); Neutrophils % (auto) 84.3 %; Platelet Count 266 K/uL (130-400); RDW Coefficient of Variation 13.4 % (11.5-14.5); RDW Standard Deviation 46.3 fL (36.4-46.3); Red Blood Count 3.39 M/uL (4.70-6.10)
[2022-10-01 19:18] LABS: Albumin Globulin Ratio 1.2 (0.9-2); Albumin Level 3.8 gm/dl (3.4-5.0); BUN Creatinine Ratio 10.8 (10-20); Bilirubin,Total 0.7 mg/dl (0.2-1.0); Creatinine Clr Calc Pharmacy 39.4 ml/min; Est GFR (African American) 24.2 ml/min; Est GFR (Non-African American) 20.9 ml/min; Globulin 3.1 gm/dl (2.5-4.0); Potassium 4.3 mmol/L (3.5-5.1); Total Protein 6.9 gm/dl (6.0-8.3)
[2022-10-01 19:40] LABS: Appearance Urine Turbid (Clear); Blood Urine Negative (Negative); Color Urine Dark Yellow; Epithelial Cell Urine Auto >30 /lpf (0-5); Glucose Urine UA Negative (Negative); Ketones Urine 1+ (Negative); Leukocyte Esterase Urine Trace (Negative); Nitrite Urine Negative (Negative); Protein Urine Trace (Negative); Specific Gravity Urine 1.022 (1.000-1.030); Urobilinogen Urine Negative (Negative)
[2022-10-01 19:52] LABS: Bilirubin Urine 1+ (Negative)
[2022-10-01 20:05] LABS: Bacteria Urine Automated 1+ (Negative); Calcium Oxalate Crystals Urine Present (None Prsent)
--- NOTE | 2022-10-01 20:18 | CT Scan Report ---
Exam(s): CT ABDOMEN + PELVIS Without Contrast EXAM: CT Abdomen and Pelvis Without Intravenous Contrast CLINICAL HISTORY: Reason for exam: RLQ abd pain, appy. TECHNIQUE: Axial computed tomography images of the abdomen and pelvis without intravenous contrast. CTDI is 28.91 mGy and DLP is 1593.32 mGy-cm. Automated exposure control was utilized for the study. A dose lowering technique was utilized adhering to the principles of ALARA. COMPARISON: None FINDINGS: Lung bases: Unremarkable. No mass. No consolidation. ABDOMEN: Liver: Hepatomegaly. Gallbladder and bile ducts: Contracted gallbladder. No calcified stones. No ductal dilation. Pancreas: Unremarkable. No ductal dilation. Spleen: Unremarkable. No splenomegaly. Adrenals: Unremarkable. No mass. Kidneys and ureters: Nonspecific bilateral perinephric fat stranding. No hydronephrosis or stone. Stomach and bowel: Evaluation of the stomach is limited by under distention. Inflammatory change of the cecum may represent reactive inflammation. No mucosal thickening. No bowel obstruction. PELVIS: Appendix: Enlarged, inflamed appendix measuring approximately 1.5 cm in diameter, compatible with acute appendicitis. Fluid and fat stranding in the right lower quadrant may represent appendix microperforation. No fluid collection or free air. Bladder: Mild prominence of the bladder wall is nonspecific. Please correlate with urinalysis if concerned for cystitis. No stones. Reproductive: Unremarkable as visualized. ABDOMEN and PELVIS: Intraperitoneal space: See above. Bones/joints: Degenerative changes of the spine. No acute fracture. No dislocation. Soft tissues: Small fat-containing umbilical hernia. Vasculature: Phleboliths in the pelvis. No abdominal aortic aneurysm. Lymph nodes: Unremarkable. No enlarged lymph nodes. IMPRESSION: 1. Enlarged, inflamed appendix measuring approximately 1.5 cm in diameter, compatible with acute appendicitis. Fluid and fat stranding in the right lower quadrant may represent appendix microperforation. No fluid collection or free air. 2. Mild prominence of the bladder wall is nonspecific. Please correlate with urinalysis if concerned for cystitis. 3. Hepatomegaly. Communications: Call Doctor Appendicitis Electronically signed by: Nicole Eastman M.D. 10/01/22 20:17 PM
[2022-10-01] MEDS ORDERED: PIPERACILLIN/TAZOBACTAM 4.5 GM/120 ML BAG IV ONE (20:19)
[2022-10-01] MEDS ORDERED: SODIUM CHLORIDE 0.9% 1000ML 1,000 ML IV ONE (20:19)
--- NOTE | 2022-10-01 21:06 | History & Physical Report ---
Date of Service October 01, 2022 Assessment & Plan (1) HTN (hypertension): (2) Asthma: (3) CARYN (obstructive sleep apnea): (4) Schizophrenia: (5) Acute appendicitis with localized peritonitis: Plan 57-year-old gentleman with acute appendicitis with localized peritonitis. I discussed the risks and benefits of laparoscopic, possible open appendectomy. We discussed the postoperative course and recovery. All his questions were answered, he is agreeable to proceed. Consent has been obtained. We will take him to the operating room at the earliest opportunity. History of Present Illness Primary Care Provider: Tequila Cristopher 57-year-old gentleman with past medical history of hypertension, renal disease, schizophrenia presents with 1 day history of right lower quadrant abdominal pain. States the pain increased throughout the day yesterday and into today. He denies fevers or chills. He denies nausea or vomiting. He has been able to eat. He denies any other complaints. Allergies Allergy/AdvReac Type Severity Reaction Status Date / Time No Known Allergies Allergy Verified 08/12/22 13:06 Past Med/Surg History Medical History Anxiety Asthma Ataxic gait Chronic kidney disease Diabetes II GERD (gastroesophageal reflux disease) High blood pressure Hyperlipidemia Hypothyroidism Morbid obesity Paranoid schizophrenia Sleep apnea Family History Mother Diabetes Heart disease Father Diabetes Heart disease Social History Smoking Status: Never smoker Second Hand Exposure: No; Hx Alcohol Use: No Hx Substance Use: No Preferred Language: Brazilian Communication Ability: Effective Visual Impairment: No Limitations Hearing Ability: Normal Binder Sorter Required: No Beliefs That Will Affect Care: None marital status: Single Current Living Situation: Personal Care Facility Current Living Situation Comment: [facility] current occupational status: employed Feels Safe at Home: Yes Assistive Devices: None Review of Systems Review of Systems: All systems reviewed & are unremarkable except as noted in HPI & below Physical Exam Constitutional: WD/WN, vitals as above Eyes: PERRL, conjunctivae normal, anicteric sclerae Neck: trachea midline, no thyromegaly Respiratory: normal respiratory effort; no respiratory distress and no labored breathing Cardiovascular: Rate/Rhythm: regular rate and regular rhythm Gastrointestinal (Abdomen): Inspection/Auscultation: abdomen normal to inspection; abdomen not distended Percussion/Palpation: + abdomen tender (Right lower quadrant) and abdomen soft; no guarding and abdomen not rigid Skin: no rashes, warm and dry Psychiatric: A+Ox3, euthymic affect Results & Data Results & Data Vital Signs (Past 12 Hours) Vital Signs Temp Pulse Pulse Resp BP BP Pulse Ox 10/01/22 20:50 95 H 18 95 10/01/22 20:40 95 H 20 93 10/01/22 20:30 96 H 16 95 10/01/22 20:30 117/65 10/01/22 20:20 96 H 16 93 10/01/22 20:15 105/61 10/01/22 20:15 101 H 16 95 10/01/22 20:13 99 H 17 10/01/22 19:30 101 H 20 93 10/01/22 19:30 124/57 L 10/01/22 19:22 104 H 17 91 10/01/22 19:22 114/68 10/01/22 19:20 106 H 19 95 10/01/22 19:10 103 H 20 95 10/01/22 19:00 115 H 23 10/01/22 18:50 114 H 15 10/01/22 18:40 109 H 15 10/01/22 18:30 113 H 18 10/01/22 18:30 105/60 10/01/22 18:25 114 H 15 94 10/01/22 20:16 99 H 22 105/61 93 10/01/22 19:25 14 114/68 95 10/01/22 19:04 115 H 20 94 10/01/22 18:26 114 H 10/01/22 18:24 37.6 C H 114 H 20 105/64 93 O2 Del Method 10/01/22 20:50 10/01/22 20:40 10/01/22 20:30 10/01/22 20:30 10/01/22 20:20 10/01/22 20:15 10/01/22 20:15 10/01/22 20:13 10/01/22 19:30 10/01/22 19:30 10/01/22 19:22 10/01/22 19:22 10/01/22 19:20 10/01/22 19:10 10/01/22 19:00 10/01/22 18:50 10/01/22 18:40 10/01/22 18:30 10/01/22 18:30 10/01/22 18:25 10/01/22 20:16 Room Air 10/01/22 19:25 Room Air 10/01/22 19:04 Room Air 10/01/22 18:26 10/01/22 18:24 Room Air Laboratory Results 10/01/22 10/01/22 10/01/22 Range/Units 19:18 19:13 18:35 WBC (4.8-10.8) K/ul RBC (4.70-6.10) M/uL Hgb (14.0-18.0) g/dl Hct (42.0-52.0) % MCV (80.0-100.0) fL MCH (25.0-34.0) pg MCHC (32.0-36.0) g/dL RDW Std Deviation (36.4-46.3) fL RDW Coeff of Jade (11.5-14.5) % Plt Count (130-400) K/uL MPV (9.4-12.4) fL Immature Gran % (Auto) % Neut % (Auto) % Lymph % (Auto) % [place] % (Auto) % Eos % (Auto) % Baso % (Auto) % Neut # (Auto) (1.40-6.50) K/uL Lymph # (Auto) (1.2-3.4) K/uL [place] # (Auto) (0.11-0.59) K/uL Eos # (Auto) (0-0.50) K/uL Baso # (Auto) (0-0.2) K/uL Immature Gran # (Auto) (0.01-0.20) K/uL Sodium 131 L (136-145) mmol/L Potassium 4.3 (3.5-5.1) mmol/L Chloride 100 (98-107) mmol/L Carbon Dioxide 25 (21-32) mmol/L Anion Gap 6 (3-11) BUN 34 H (6-23) mg/dl Creatinine 3.15 H (0.6-1.4) mg/dl Est Cr Clr Drug Dosing 39.4 ml/min Est GFR ( Amer) 24.2 ml/min Est GFR (Non-Af Amer) 20.9 ml/min BUN/Creatinine Ratio 10.8 (10-20) Glucose 178 H (70-99(Fasting)) mg/dl Calcium 9.0 (8.6-10.3) mg/dl Total Bilirubin 0.7 (0.2-1.0) mg/dl AST 20 (13-39) U/L ALT 14 (7-52) U/L Alkaline Phosphatase 40 (34-104) U/L Total Protein 6.9 (6.0-8.3) gm/dl Albumin 3.8 (3.4-5.0) gm/dl Globulin 3.1 (2.5-4.0) gm/dl Albumin/Globulin Ratio 1.2 (0.9-2) Lipase 13 (11-82) U/L Urine Color Dark Yellow Urine Appearance Turbid A (Clear) Urine pH 5.0 (4.5-7.5) Ur Specific [place] 1.022 (1.000-1.030) Urine Protein Trace H (Negative) Urine Glucose (UA) Negative (Negative) Urine Ketones 1+ H (Negative) Urine Blood Negative (Negative) Urine Nitrite Negative (Negative) Urine Bilirubin 1+ H (Negative) Urine Urobilinogen Negative (Negative) Ur Leukocyte Esterase Trace H (Negative) Urine WBC (Auto) 1-5 (0-5) /hpf Urine RBC (Auto) 5-10 H (0-4) /hpf U Hyaline Cast (Auto) 1-5 (0-5) /lpf U Epithel Cells (Auto) >30 H (0-5) /lpf Urine Bacteria (Auto) 1+ H (Negative) Ur Renal Epithelial Cell Not Reportable Urine Crystals Not Reportable Calcium Oxalate Crystal Present A (None Prsent) SARS-CoV-2, RNA, NAAT NEGATIVE (NEGATIVE) 10/01/22 Range/Units 18:35 WBC 13.80 H (4.8-10.8) K/ul RBC 3.39 L (4.70-6.10) M/uL Hgb 10.8 L (14.0-18.0) g/dl Hct 31.8 L (42.0-52.0) % MCV 93.8 (80.0-100.0) fL MCH 31.9 (25.0-34.0) pg MCHC 34.0 (32.0-36.0) g/dL RDW Std Deviation 46.3 (36.4-46.3) fL RDW Coeff of Jade 13.4 (11.5-14.5) % Plt Count 266 (130-400) K/uL MPV 10.3 (9.4-12.4) fL Immature Gran % (Auto) 0.6 % Neut % (Auto) 84.3 % Lymph % (Auto) 8.8 % [place] % (Auto) 6.2 % Eos % (Auto) 0.0 % Baso % (Auto) 0.1 % Neut # (Auto) 11.63 H (1.40-6.50) K/uL Lymph # (Auto) 1.22 (1.2-3.4) K/uL [place] # (Auto) 0.85 H (0.11-0.59) K/uL Eos # (Auto) 0.00 (0-0.50) K/uL Baso # (Auto) 0.02 (0-0.2) K/uL Immature Gran # (Auto) 0.08 (0.01-0.20) K/uL Sodium (136-145) mmol/L Potassium (3.5-5.1) mmol/L Chloride (98-107) mmol/L Carbon Dioxide (21-32) mmol/L Anion Gap (3-11) BUN (6-23) mg/dl Creatinine (0.6-1.4) mg/dl Est Cr Clr Drug Dosing ml/min Est GFR ( Amer) ml/min Est GFR (Non-Af Amer) ml/min BUN/Creatinine Ratio (10-20) Glucose (70-99(Fasting)) mg/dl Calcium (8.6-10.3) mg/dl Total Bilirubin (0.2-1.0) mg/dl AST (13-39) U/L ALT (7-52) U/L Alkaline Phosphatase (34-104) U/L Total Protein (6.0-8.3) gm/dl Albumin (3.4-5.0) gm/dl Globulin (2.5-4.0) gm/dl Albumin/Globulin Ratio (0.9-2) Lipase (11-82) U/L Urine Color Urine Appearance (Clear) Urine pH (4.5-7.5) Ur Specific [place] (1.000-1.030) Urine Protein (Negative) Urine Glucose (UA) (Negative) Urine Ketones (Negative) Urine Blood (Negative) Urine Nitrite (Negative) Urine Bilirubin (Negative) Urine Urobilinogen (Negative) Ur Leukocyte Esterase (Negative) Urine WBC (Auto) (0-5) /hpf Urine RBC (Auto) (0-4) /hpf U Hyaline Cast (Auto) (0-5) /lpf U Epithel Cells (Auto) (0-5) /lpf Urine Bacteria (Auto) (Negative) Ur Renal Epithelial Cell Urine Crystals Calcium Oxalate Crystal (None Prsent) SARS-CoV-2, RNA, NAAT (NEGATIVE) Diagnostic Findings CT Abdomen and Pelvis Without Intravenous Contrast CLINICAL HISTORY: Reason for exam: RLQ abd pain, appy. TECHNIQUE: Axial computed tomography images of the abdomen and pelvis without intravenous contrast. CTDI is 28.91 mGy and DLP is 1593.32 mGy-cm. Automated exposure control was utilized for the study. A dose lowering technique was utilized adhering to the principles of ALARA. COMPARISON: None FINDINGS: Lung bases: Unremarkable. No mass. No consolidation. ABDOMEN: Liver: Hepatomegaly. Gallbladder and bile ducts: Contracted gallbladder. No calcified stones. No ductal dilation. Pancreas: Unremarkable. No ductal dilation. Spleen: Unremarkable. No splenomegaly. Adrenals: Unremarkable. No mass. Kidneys and ureters: Nonspecific bilateral perinephric fat stranding. No hydronephrosis or stone. Stomach and bowel: Evaluation of the stomach is limited by under distention. Inflammatory change of the cecum may represent reactive inflammation. No mucosal thickening. No bowel obstruction. PELVIS: Appendix: Enlarged, inflamed appendix measuring approximately 1.5 cm in diameter, compatible with acute appendicitis. Fluid and fat stranding in the right lower quadrant may represent appendix microperforation. No fluid collection or free air. Bladder: Mild prominence of the bladder wall is nonspecific. Please correlate with urinalysis if concerned for cystitis. No stones. Reproductive: Unremarkable as visualized. ABDOMEN and PELVIS: Intraperitoneal space: See above. Bones/joints: Degenerative changes of the spine. No acute fracture. No dislocation. Soft tissues: Small fat-containing umbilical hernia. Vasculature: Phleboliths in the pelvis. No abdominal aortic aneurysm. Lymph nodes: Unremarkable. No enlarged lymph nodes. IMPRESSION: 1. Enlarged, inflamed appendix measuring approximately 1.5 cm in diameter, compatible with acute appendicitis. Fluid and fat stranding in the right lower quadrant may represent appendix microperforation. No fluid collection or free air. 2. Mild prominence of the bladder wall is nonspecific. Please correlate with urinalysis if concerned for cystitis. 3. Hepatomegaly.
[2022-10-01] MEDS ORDERED: BUPIVACAINE/EPINEPHRINE 0.5% MPF 1:200,000 30 ML VIAL ONE (21:18)
[2022-10-01] MEDS ORDERED: ATROPINE SULFATE 0.1 MG/ML 10ML SYR IV PRN (21:31)
[2022-10-01] MEDS ORDERED: fentaNYL citrate PF 100 MCG/2 ML VIAL IV PRN (21:31)
[2022-10-01] MEDS ORDERED: ePHEDrine sulfate 50 MG/ML AMP IV PRN (21:31)
[2022-10-01] MEDS ORDERED: ONDANSETRON INJ 2 MG/ML 2 ML VIAL IV PRN (21:31)
--- NOTE | 2022-10-01 21:31 | Anesthesiology Consultation ---
Date of Service October 01, 2022 Assessment & Plan Chart Review Chart Review: Acceptable Risk for Surgery and Patient NOT seen in Pre Admission Testing Consults Requested none ASA [id number] Proposed Anesthesia Anesthesia Type: General Risk / Benefits Reviewed With: PT / POA / Parent / Guardian, Accepts Plan and Informed Consent Obtained History Surgery Operation Date: 10/01/22 21:00 Proposed Procedures p Laparoscopic Appendectomy - [place] Jules MD Height/Weight Height: 6 ft 2 in Weight: 142.7 kg Allergies Allergy/AdvReac Type Severity Reaction Status Date / Time No Known Allergies Allergy Verified 08/12/22 13:06 NPO Date Last Intake of Fluids: 10/01/22 Time Last Intake of Fluids: 17:00 Date Last Intake of Solids: 10/01/22 Time Last Intake of Solids: 17:00 Past Medical History Medical History Anxiety Asthma Ataxic gait Chronic kidney disease Diabetes II GERD (gastroesophageal reflux disease) High blood pressure Hyperlipidemia Hypothyroidism Morbid obesity Paranoid schizophrenia Sleep apnea Exercise / Class Metabolic Activity II 4-5 Yardwork/Stairs/Walk up hill Past Family History Family History Mother Diabetes Heart disease Father Diabetes Heart disease Past Anesthesia History No Hx of Anesthesia Complications and No Family Hx of Anesthesia Complications History of PONV No Hx of PONV and No Hx of Motion Sickness Social History Smoking Status: Never smoker tobacco type: smokeless tobacco Hx Alcohol Use: No Hx Substance Use: No substance use type: does not use Physical Exam Vital Signs Last Vital Signs Temp 37.6 C H 10/01/22 18:24 Pulse 95 H 10/01/22 20:50 Resp 18 10/01/22 20:50 BP 117/65 10/01/22 20:30 Pulse Ox 95 10/01/22 20:50 O2 Del Method Room Air 10/01/22 20:16 Constitutional + obese ENMT Mouth: + edentulous Thyromental Distance: > or= 3.5 Finger Breadths Mallampati Class: II Neck normal visual inspection and + thick neck Respiratory normal respiratory effort Auscultation: lungs clear to auscultation bilaterally Cardiovascular Rate/Rhythm: regular rate and regular rhythm Psychiatric Orientation: alert Testing Laboratory Results 10/01/22 18:35 10/01/22 18:35 Urine Color Dark Yellow 10/01/22 19:18 Urine Appearance Turbid (Clear) A 10/01/22 19:18 Urine pH 5.0 (4.5-7.5) 10/01/22 19:18 Ur Specific [place] 1.022 (1.000-1.030) 10/01/22 19:18 Urine Protein Trace (Negative) H 10/01/22 19:18 Urine Glucose (UA) Negative (Negative) 10/01/22 19:18 Urine Ketones 1+ (Negative) H 10/01/22 19:18 Urine Nitrite Negative (Negative) 10/01/22 19:18 Ur Leukocyte Esterase Trace (Negative) H 10/01/22 19:18 Urine WBC (Auto) 1-5 /hpf (0-5) 10/01/22 19:18 Urine RBC (Auto) 5-10 /hpf (0-4) H 10/01/22 19:18 U Hyaline Cast (Auto) 1-5 /lpf (0-5) 10/01/22 19:18 U Epithel Cells (Auto) >30 /lpf (0-5) H 10/01/22 19:18 Urine Bacteria (Auto) 1+ (Negative) H 10/01/22 19:18
[2022-10-01] MEDS ORDERED: fentaNYL citrate PF 100 MCG/2 ML VIAL ONE (21:36)
[2022-10-01] MEDS ORDERED: PHENYLEPHRINE HCL 10 MG/ML VIAL ONE (23:03)
[2022-10-01] MEDS ORDERED: PROPOFOL IV EMULSION 10 MG/ML 20 ML VIAL IV ONE (23:03)
[2022-10-01] MEDS ORDERED: ROCURONIUM BROMIDE 10 MG/ML 5 ML VIAL IV ONE (23:03)
[2022-10-01] MEDS ORDERED: NEOSTIGMINE METHYLSULFATE 1 MG/ML 10ML VIAL ONE (23:03)
[2022-10-01] MEDS ORDERED: SUCCINYLCHOLINE CHLORIDE 20 MG/ML 10 ML VIAL IV ONE (23:03)
[2022-10-01] MEDS ORDERED: GLYCOPYRROLATE 0.2 MG/ML VIAL ONE (23:03)
[2022-10-01] MEDS ORDERED: LIDOCAINE 2% 20 MG/ML 5 ML SYR IV ONE (23:03)
--- NOTE | 2022-10-01 23:22 | Post Operative Brief Note ---
Immediate Post Op Note v1 Date of Surgery October 01, 2022 Pre & Post Diagnosis Operation Date: 10/01/22 21:00 Pre-Op Diagnosis: Acute appendicitis with localized peritonitis Post-Op Diagnosis: Acute appendicitis with localized peritonitis I identified the patient and participated in the time-out.: Yes Procedure Operation Date: 10/01/22 21:00 Actual Procedures p Laparoscopic Appendectomy(Not Applicable) - North Jules MD Surgeon North Jules MD Refinisher None Estimated Blood Loss 10 Findings Consistent with Post-Op Diagnosis Severe gangrenous appendicitis with perforation and purulent fluid in the right lower quadrant; severe inflammatory reaction of the small bowel and colon surrounding the appendix Drains Servando-Mayes Drain (15fr)
--- NOTE | 2022-10-01 23:29 | Operative Report ---
Post Operative Report Pre & Post Diagnosis Operation Date: 10/01/22 21:00 Pre-Op Diagnosis: Acute appendicitis with localized peritonitis Post-Op Diagnosis: Acute appendicitis with localized peritonitis I identified the patient and participated in the time-out.: Yes Procedure Operation Date: 10/01/22 21:00 Actual Procedures p Laparoscopic Appendectomy(Not Applicable) - North Jules MD Surgeon North Jules MD Food [employer] Beverage Operations Manager None Estimated Blood Loss 10 Findings Consistent with Post-Op Diagnosis Severe acute gangrenous appendicitis with perforation and purulent fluid in the right lower quadrant; severe inflammatory response of the bowel and colon surrounding the appendix Specimens Appendix and mesoappendix Drains 15 Gabonese round AMARIS Anesthesia Type General Complications No immediate complications Description of Procedure The patient was taken to the operating room, and placed supine on the operating table. A timeout was performed, perioperative antibiotics were administered, SCD boots were placed. After adequate anesthesia and analgesia was obtained, the abdomen was prepped and draped in the normal sterile fashion. A 1 cm incision was made in the supraumbilical region and carried down to the level of the fascia. A trach hook was used to grasp the fascia and elevated and a varies needle was used to enter the abdominal cavity. The abdomen was insu fflated to a pressure of 15 mmHg, and a 5 mm trocar was placed in this location. A 5 mm 30 degree laparoscope was placed into the abdominal cavity, and the abdomen was surveyed. There was a severe inflammatory reaction in the right lower quadrant encompassing small bowel, cecum adhesed to the pelvic sidewall. There was turbid and frankly purulent fluid in the right lower quadrant. The patient was placed in Trendelenburg and slightly to the left. One 5 mm trocar was placed in the right upper quadrant, and one 12 mm trocar was placed in the left lower quadrant under direct visualization. Careful blunt dissection was used to dissect free the small bowel away from the colon. This was also done to separate the colon from the pelvic sidewall. The appendix was not readily visible. With careful dissection using the suction special agent secret service as well as judicious use of the LigaSure device, I was able to separate and mobilized the right colon medially. For better visualization, the supraumbilical port site was changed to a 11 mm port, and a 10 mm 30 degree laparoscope was used. We were able to identify the appendix and the mesoappendix densely adherent to the cecum on the lateral aspect. This was carefully dissected away from the colon using careful blunt dissection. A perforation was noted in the mid proximal appendix. A window was created at the base of the appendix with a [place] dissector. The Endo LEROY stapler was used to transect the appendix at its base through fairly noninflamed tissue, and subsequently the mesoappendix was transected with 2 fires of the Endo LEROY stapler. The appendix was placed in an Endo Catch bag, and removed via the left lower quadrant port site. Attention was turned to hemostasis, which was attended to and was found to be excellent. The abdomen was copiously irrigated and suctioned free, and again hemostasis was found to be excellent. A 15 Gabonese round AMARIS drain was placed through the right upper quadrant 5 mm port site and was secured with a 2-0 nylon suture. The drain was directed into the right lower quadrant right past the area of the appendiceal staple line. The remaining trochars removed under direct visualization. The abdomen was desufflated. The fascia in the 12 mm port sites were closed with a 0 Vicryl suture. The skin was closed with a running 4-0 Monocryl subcuticular stitch. Dermabond was applied. The patient tolerated the procedure without complication, and was transferred in stable condition to the PACU. All instrument, needle, and sponge counts were correct at the end of the case. I attest to the content of the Intraoperative Record and any orders documented therein. Any exceptions are noted below.
--- NOTE | 2022-10-01 23:39 | Hospitalist Consultation ---
Date of Consultation October 01, 2022 Assessment & Plan (1) Acute appendicitis with localized peritonitis: Final Assessment and Recommendations as follows : Severe sepsis SIRS plus ARF on CKD Secondary to perforated appendicitis status post surgery HTN, stable hyperlipidemia not on statin Rx DM 2 insulin requiring, well-controlled as of recent hemoglobin A1c of 5.3 last May 2022 hypothyroidism, euthyroid as of recent outpatient TSH Acute on chronic anemia, hemoglobin drop from baseline, patient denies overt GI/ bleed OHS on CPAP/asthma, stable lung status history traumatic brain injury paranoid schizophrenia/mood/anxiety disorder, at baseline Agree with Zosyn Monitor creatinine response to IVF Appropriate to hold home ARB until creatinine back to baseline Recommend Nephrology consult about improvement Anemia work-up, transfuse PRBC if hemoglobin less than 7 and or for symptomatic anemia Basal bolus insulin adjusted for decreased renal function, ISS BG goal 1 10-1 40, carb count coverage, update hemoglobin A1c DVT prophylaxis. Heparin subcu recommended over Lovenox given kidney dysfunction Thank you very much for this consultation. Dr. Browning will follow patient's progress. Text document was generated using [employer] voice recognition software. It may contain grammatical or spelling errors. Kindly contact undersigned for clarification of any documentation item in question. History of Present Illness Reason for Consultation: Postop medical management Requesting Physician: Dr. Jules Attending Physician: North Jules MD History of Present Illness PCP : Dr. Ashia Carlin History obtained from patient and records. Medical history significant for HTN, hyperlipidemia, DM 2 insulin requiring, hypothyroidism, CRI (baseline creatinine 1.9 ) chronic anemia (baseline hemoglobin 12 ), OHS on CPAP, asthma, history traumatic brain injury, paranoid schizophrenia, mood/anxiety disorder. Last confinement 2018 for shortness of breath secondary to CARYN. Patient eventually became compliant with CPAP recommendations outpatient. 1 day history of achy right lower quadrant pain without other symptoms. Fever, no chills, no chest pain, no SOB. Patient consulted ER for evaluation. CT abdomen pelvis showed appendicitis with microperforation. Zosyn administered at the ER. Patient subsequently admitted by General Surgery and underwent emergent laparoscopic appendectomy. Patient currently comfortable at the PACU. Pain only with coughing. Medical Historyas above Surgical History : Wound repair procedure, appendectomy Family History : Hypertension, DM, stroke, heart disease Personal/Social history : Non-smoker, no EtOH intake, disabled, personal-[facility] resident Allergies Allergy/AdvReac Type Severity Reaction Status Date / Time No Known Allergies Allergy Verified 08/12/22 13:06 Home Medications Medication Instructions Recorded Confirmed Type Systane Hs Eye Ointment 1 applic OPL HS 10/01/22 History Systane Hs Eye Ointment 1 applic OPR QID 10/01/22 History acetaminophen 325 mg tablet 650 mg PO AMHS 10/01/22 10/01/22 History amlodipine 5 mg tablet 5 mg PO DAILY 10/01/22 10/01/22 History carboxymethylcellulose sodium 1 % 1 drp OPL TID PRN Dry Eyes 10/01/22 10/01/22 History eye liquid gel drops cholecalciferol (vitamin D3) 25 25 mcg PO DAILY 10/01/22 10/01/22 History mcg (1,000 unit) tablet (Vitamin D3) clonidine HCl 0.1 mg tablet 0.1 mg PO BID 10/01/22 10/01/22 History cyclobenzaprine 5 mg tablet 5 mg PO TID 10/01/22 10/01/22 History dextromethorphan-guaifenesin 10 10 ml PO Q4H PRN Cough 10/01/22 10/01/22 History mg-100 mg/5 mL oral syrup docusate sodium 100 mg capsule 100 mg PO BID 10/01/22 10/01/22 History dulaglutide 4.5 mg/0.5 mL 4.5 mg subcut WK 10/01/22 10/01/22 History subcutaneous pen injector (Trulicity) escitalopram oxalate 20 mg tablet 20 mg PO DAILY 10/01/22 10/01/22 History fenofibrate nanocrystallized 145 145 mg PO DAILY 10/01/22 10/01/22 History mg tablet fluticasone 250 mcg-salmeterol 50 1 ea inhalation BID 10/01/22 10/01/22 History mcg/dose blistr powdr for inhalation (Advair Diskus) folic acid 1 mg tablet 1 mg PO DAILY 10/01/22 10/01/22 History gabapentin 100 mg capsule 200 mg PO TID 10/01/22 10/01/22 History gemfibrozil 600 mg tablet 600 mg PO BID 10/01/22 10/01/22 History insulin glargine 100 unit/mL (3 25 unit subcut AMPM 10/01/22 10/01/22 History mL) subcutaneous pen (Lantus Solostar U-100 Insulin) insulin lispro 100 unit/mL 6 unit subcut TIDM 10/01/22 10/01/22 History subcutaneous pen (Humalog KwikPen (U-100) Insulin) levothyroxine 25 mcg tablet 25 mcg PO DAILY 10/01/22 10/01/22 History losartan 50 mg tablet 50 mg PO DAILY 10/01/22 10/01/22 History metoprolol tartrate 50 mg tablet 50 mg PO BID 10/01/22 10/01/22 History olanzapine 10 mg-samidorphan 10 mg 1 tab PO HS 10/01/22 10/01/22 History tablet (Lybalvi) omeprazole 20 mg capsule,delayed 20 mg PO DAILY 10/01/22 10/01/22 History release trazodone 100 mg tablet 100 mg PO HS 10/01/22 10/01/22 History Patient History Medical History Anxiety Asthma Ataxic gait Chronic kidney disease Diabetes II GERD (gastroesophageal reflux disease) High blood pressure Hyperlipidemia Hypothyroidism Morbid obesity Paranoid schizophrenia Sleep apnea Family History Mother Diabetes Heart disease Father Diabetes Heart disease Social History Smoking Status: Never smoker Second Hand Exposure: No; Hx Alcohol Use: No Hx Substance Use: No Preferred Language: Belgian Communication Ability: Effective Visual Impairment: No Limitations Hearing Ability: Normal [employer] Ambassador Required: No Beliefs That Will Affect Care: None marital status: Single Current Living Situation: Personal Care Facility Current Living Situation Comment: [facility] current occupational status: employed Feels Safe at Home: Yes Assistive Devices: None Results & Data Results & Data Vital Signs (Past 12 Hours) Vital Signs Temp Pulse Pulse Resp BP BP Pulse Ox 10/01/22 23:29 100 H 22 119/59 L 98 10/01/22 23:24 37.2 C 109 H 15 113/62 97 10/01/22 20:50 95 H 18 95 10/01/22 20:40 95 H 20 93 10/01/22 20:30 96 H 16 95 10/01/22 20:30 117/65 10/01/22 20:20 96 H 16 93 10/01/22 20:15 105/61 10/01/22 20:15 101 H 16 95 10/01/22 20:13 99 H 17 10/01/22 19:30 101 H 20 93 10/01/22 19:30 124/57 L 10/01/22 19:22 104 H 17 91 10/01/22 19:22 114/68 10/01/22 19:20 106 H 19 95 10/01/22 19:10 103 H 20 95 10/01/22 19:00 115 H 23 10/01/22 18:50 114 H 15 10/01/22 18:40 109 H 15 10/01/22 18:30 113 H 18 10/01/22 18:30 105/60 10/01/22 18:25 114 H 15 94 10/01/22 20:16 99 H 22 105/61 93 10/01/22 19:25 14 114/68 95 10/01/22 19:04 115 H 20 94 10/01/22 18:26 114 H 10/01/22 18:24 37.6 C H 114 H 20 105/64 93 O2 Del Method O2 Flow Rate 10/01/22 23:29 Oxymask 8 10/01/22 23:24 Oxymask 8 10/01/22 20:50 10/01/22 20:40 10/01/22 20:30 10/01/22 20:30 10/01/22 20:20 10/01/22 20:15 10/01/22 20:15 10/01/22 20:13 10/01/22 19:30 10/01/22 19:30 10/01/22 19:22 10/01/22 19:22 10/01/22 19:20 10/01/22 19:10 10/01/22 19:00 10/01/22 18:50 10/01/22 18:40 10/01/22 18:30 10/01/22 18:30 10/01/22 18:25 10/01/22 20:16 Room Air 10/01/22 19:25 Room Air 10/01/22 19:04 Room Air 10/01/22 18:26 10/01/22 18:24 Room Air Laboratory Results Laboratory Results WBC 13.80 K/ul (4.8-10.8) H 10/01/22 18:35 RBC 3.39 M/uL (4.70-6.10) L 10/01/22 18:35 Hgb 10.8 g/dl (14.0-18.0) L 10/01/22 18:35 Hct 31.8 % (42.0-52.0) L 10/01/22 18:35 MCV 93.8 fL (80.0-100.0) 10/01/22 18:35 MCH 31.9 pg (25.0-34.0) 10/01/22 18:35 MCHC 34.0 g/dL (32.0-36.0) 10/01/22 18:35 RDW Std Deviation 46.3 fL (36.4-46.3) 10/01/22 18:35 RDW Coeff of Jade 13.4 % (11.5-14.5) 10/01/22 18:35 Plt Count 266 K/uL (130-400) 10/01/22 18:35 MPV 10.3 fL (9.4-12.4) 10/01/22 18:35 Immature Gran % (Auto) 0.6 % 10/01/22 18:35 Neut % (Auto) 84.3 % 10/01/22 18:35 Lymph % (Auto) 8.8 % 10/01/22 18:35 [place] % (Auto) 6.2 % 10/01/22 18:35 Eos % (Auto) 0.0 % 10/01/22 18:35 Baso % (Auto) 0.1 % 10/01/22 18:35 Neut # (Auto) 11.63 K/uL (1.40-6.50) H 10/01/22 18:35 Lymph # (Auto) 1.22 K/uL (1.2-3.4) 10/01/22 18:35 [place] # (Auto) 0.85 K/uL (0.11-0.59) H 10/01/22 18:35 Eos # (Auto) 0.00 K/uL (0-0.50) 10/01/22 18:35 Baso # (Auto) 0.02 K/uL (0-0.2) 10/01/22 18:35 Immature Gran # (Auto) 0.08 K/uL (0.01-0.20) 10/01/22 18:35 Sodium 131 mmol/L (136-145) L 10/01/22 18:35 Potassium 4.3 mmol/L (3.5-5.1) 10/01/22 18:35 Chloride 100 mmol/L (98-107) 10/01/22 18:35 Carbon Dioxide 25 mmol/L (21-32) 10/01/22 18:35 Anion Gap 6 (3-11) 10/01/22 18:35 BUN 34 mg/dl (6-23) H 10/01/22 18:35 Creatinine 3.15 mg/dl (0.6-1.4) H 10/01/22 18:35 Est Cr Clr Drug Dosing 39.4 ml/min 10/01/22 18:35 Est GFR ( Amer) 24.2 ml/min 10/01/22 18:35 Est GFR (Non-Af Amer) 20.9 ml/min 10/01/22 18:35 BUN/Creatinine Ratio 10.8 (10-20) 10/01/22 18:35 Glucose 178 mg/dl (70-99(Fasting)) H 10/01/22 18:35 Calcium 9.0 mg/dl (8.6-10.3) 10/01/22 18:35 Total Bilirubin 0.7 mg/dl (0.2-1.0) 10/01/22 18:35 AST 20 U/L (13-39) 10/01/22 18:35 ALT 14 U/L (7-52) 10/01/22 18:35 Alkaline Phosphatase 40 U/L (34-104) 10/01/22 18:35 Total Protein 6.9 gm/dl (6.0-8.3) 10/01/22 18:35 Albumin 3.8 gm/dl (3.4-5.0) 10/01/22 18:35 Globulin 3.1 gm/dl (2.5-4.0) 10/01/22 18:35 Albumin/Globulin Ratio 1.2 (0.9-2) 10/01/22 18:35 Lipase 13 U/L (11-82) 10/01/22 18:35 Urine Color Dark Yellow 10/01/22 19:18 Urine Appearance Turbid (Clear) A 10/01/22 19:18 Urine pH 5.0 (4.5-7.5) 10/01/22 19:18 Ur Specific [place] 1.022 (1.000-1.030) 10/01/22 19:18 Urine Protein Trace (Negative) H 10/01/22 19:18 Urine Glucose (UA) Negative (Negative) 10/01/22 19:18 Urine Ketones 1+ (Negative) H 10/01/22 19:18 Urine Blood Negative (Negative) 10/01/22 19:18 Urine Nitrite Negative (Negative) 10/01/22 19:18 Urine Bilirubin 1+ (Negative) H 10/01/22 19:18 Urine Urobilinogen Negative (Negative) 10/01/22 19:18 Ur Leukocyte Esterase Trace (Negative) H 10/01/22 19:18 Urine WBC (Auto) 1-5 /hpf (0-5) 10/01/22 19:18 Urine RBC (Auto) 5-10 /hpf (0-4) H 10/01/22 19:18 U Hyaline Cast (Auto) 1-5 /lpf (0-5) 10/01/22 19:18 U Epithel Cells (Auto) >30 /lpf (0-5) H 10/01/22 19:18 Urine Bacteria (Auto) 1+ (Negative) H 10/01/22 19:18 Ur Renal Epithelial Cell Not Reportable 10/01/22 19:18 Urine Crystals Not Reportable 10/01/22 19:18 Calcium Oxalate Crystal Present (None Prsent) A 10/01/22 19:18 SARS-CoV-2, RNA, NAAT NEGATIVE (NEGATIVE) 10/01/22 19:13 Impressions Abdomen/Pelvis CT 10/01/22 18:44 CR Exam(s): CT ABDOMEN + PELVIS Without Contrast EXAM: CT Abdomen and Pelvis Without Intravenous Contrast CLINICAL HISTORY: Reason for exam: RLQ abd pain, appy. TECHNIQUE: Axial computed tomography images of the abdomen and pelvis without intravenous contrast. CTDI is 28.91 mGy and DLP is 1593.32 mGy-cm. Automated exposure control was utilized for the study. A dose lowering technique was utilized adhering to the principles of ALARA. COMPARISON: None FINDINGS: Lung bases: Unremarkable. No mass. No consolidation. ABDOMEN: Liver: Hepatomegaly. Gallbladder and bile ducts: Contracted gallbladder. No calcified stones. No ductal dilation. Pancreas: Unremarkable. No ductal dilation. Spleen: Unremarkable. No splenomegaly. Adrenals: Unremarkable. No mass. Kidneys and ureters: Nonspecific bilateral perinephric fat stranding. No hydronephrosis or stone. Stomach and bowel: Evaluation of the stomach is limited by under distention. Inflammatory change of the cecum may represent reactive inflammation. No mucosal thickening. No bowel obstruction. PELVIS: Appendix: Enlarged, inflamed appendix measuring approximately 1.5 cm in diameter, compatible with acute appendicitis. Fluid and fat stranding in the right lower quadrant may represent appendix microperforation. No fluid collection or free air. Bladder: Mild prominence of the bladder wall is nonspecific. Please correlate with urinalysis if concerned for cystitis. No stones. Reproductive: Unremarkable as visualized. ABDOMEN and PELVIS: Intraperitoneal space: See above. Bones/joints: Degenerative changes of the spine. No acute fracture. No dislocation. Soft tissues: Small fat-containing umbilical hernia. Vasculature: Phleboliths in the pelvis. No abdominal aortic aneurysm. Lymph nodes: Unremarkable. No enlarged lymph nodes. IMPRESSION: 1. Enlarged, inflamed appendix measuring approximately 1.5 cm in diameter, compatible with acute appendicitis. Fluid and fat stranding in the right lower quadrant may represent appendix microperforation. No fluid collection or free air. 2. Mild prominence of the bladder wall is nonspecific. Please correlate with urinalysis if concerned for cystitis. 3. Hepatomegaly. Communications: Call Doctor Appendicitis Electronically signed by: Nicole Eastman M.D. 10/01/22 20:17 PM
--- NOTE | 2022-10-01 23:47 | Anesthesiology Progress Note ---
Date of Service October 01, 2022 Anesthesia Post Procedure Vital Signs Vital Signs: Temp Pulse Pulse Resp BP BP Pulse Ox 10/01/22 23:34 37.2 C 97 H 20 128/64 98 10/01/22 23:29 100 H 22 119/59 L 98 10/01/22 23:24 37.2 C 109 H 15 113/62 97 10/01/22 20:50 95 H 18 95 10/01/22 20:40 95 H 20 93 10/01/22 20:30 96 H 16 95 10/01/22 20:30 117/65 10/01/22 20:20 96 H 16 93 10/01/22 20:15 105/61 10/01/22 20:15 101 H 16 95 10/01/22 20:13 99 H 17 10/01/22 19:30 101 H 20 93 10/01/22 19:30 124/57 L 10/01/22 19:22 104 H 17 91 10/01/22 19:22 114/68 10/01/22 19:20 106 H 19 95 10/01/22 19:10 103 H 20 95 10/01/22 19:00 115 H 23 10/01/22 18:50 114 H 15 10/01/22 18:40 109 H 15 10/01/22 18:30 113 H 18 10/01/22 18:30 105/60 10/01/22 18:25 114 H 15 94 10/01/22 20:16 99 H 22 105/61 93 10/01/22 19:25 14 114/68 95 10/01/22 19:04 115 H 20 94 10/01/22 18:26 114 H 10/01/22 18:24 37.6 C H 114 H 20 105/64 93 O2 Del Method O2 Flow Rate 10/01/22 23:34 Oxymask 4 10/01/22 23:29 Oxymask 8 10/01/22 23:24 Oxymask 8 10/01/22 20:50 10/01/22 20:40 10/01/22 20:30 10/01/22 20:30 10/01/22 20:20 10/01/22 20:15 10/01/22 20:15 10/01/22 20:13 10/01/22 19:30 10/01/22 19:30 10/01/22 19:22 10/01/22 19:22 10/01/22 19:20 10/01/22 19:10 10/01/22 19:00 10/01/22 18:50 10/01/22 18:40 10/01/22 18:30 10/01/22 18:30 10/01/22 18:25 10/01/22 20:16 Room Air 10/01/22 19:25 Room Air 10/01/22 19:04 Room Air 10/01/22 18:26 10/01/22 18:24 Room Air Transfer of Care Handoff Completed per policy Notes Mental Status: alert / awake / arousable Patient Amnestic to Procedure: Yes Nausea / Vomiting: adequately controlled Pain: adequately controlled Airway Patency, RR, SpO2: stable & adequate BP & HR: stable & adequate Hydration State: stable & adequate Anesthetic Complications: no major complications apparent
[2022-10-02 00:17] LABS: Magnesium 1.3 mg/dl (1.7-2.4)
[2022-10-02] MEDS ORDERED: GLUCAGON FOR INJ 1 MG VIAL SQ PRN (00:18)
[2022-10-02] MEDS ORDERED: SODIUM CHLORIDE 0.9% 1000ML 1,000 ML IV ONE ×2 (00:18→19:17)
[2022-10-02] MEDS ORDERED: GLUCOSE 40% GEL 15 GM TUBE PO PRN (00:18)
[2022-10-02] MEDS ORDERED: GLUCOSE 10 TAB/TUBE PO PRN (00:18)
[2022-10-02] MEDS ORDERED: CARBOHYDRATES FOR HYPOGLYCEMIA PO PRN (00:18)
[2022-10-02] MEDS ORDERED: DEXTROSE 50% 50 ML SYRINGE IV PRN (00:18)
[2022-10-02] MEDS ORDERED: MoRPHine SULFATE 2 MG/ML CARP IV PRN (00:44)
[2022-10-02] MEDS ORDERED: diphenhydrAMINE Capsule 25 MG CAP PO PRN (00:44)
[2022-10-02] MEDS ORDERED: PROMETHAZINE HCL 12.5 MG in SODIUM CHLORIDE 0.9% 50 ML IV PRN (00:44)
[2022-10-02] MEDS ORDERED: SODIUM CHLORIDE 0.9% 1000ML 1,000 ML IV SCH (00:44)
[2022-10-02] MEDS ORDERED: ONDANSETRON INJ 2 MG/ML 2 ML VIAL IV PRN (00:44)
[2022-10-02] MEDS: INSULIN ASPART PER UNIT CHARGE SC SCH ×5 (01:15→21:26)
[2022-10-02] MEDS ORDERED: ARTIFICIAL TEARS OP PRN (01:20)
[2022-10-02] MEDS: MAGNESIUM SULFATE / D5W 1 GM/100 ML BAG IV SCH ×3 (02:54→06:35)
[2022-10-02] MEDS: PIPERACILLIN/TAZOBACTAM 4.5 GM in DEXTROSE 5% 100 ML IV SCH ×3 (04:39→19:51)
[2022-10-02] MEDS: HEPARIN SOD 5,000 UNIT/0.5 ML VIAL SQ SCH ×3 (05:30→21:28)
[2022-10-02] MEDS: LEVOTHYROXINE SODIUM 25 MCG TABLET PO SCH (05:32)
--- NOTE | 2022-10-02 06:52 | XRay Report ---
XR chest 1V portable CLINICAL HISTORY: Renal failure. COMPARISON STUDY: Chest radiograph February 23, 2019. FINDINGS: Lung volumes are mildly diminished. There is no pneumothorax or pleural effusion is no evid ence for pulmonary edema. Mild right infrahilar opacity and possible retrocardiac opacity. Prominent bilateral perihilar markings are noted. IMPRESSION: 1. Suspected bibasilar opacities which could reflect atelectasis or consolidation. Low lung volumes. 2. No evidence for pulmonary edema. ACT 112: Negative or not required by law. Electronically signed by: Clyde Corley M.D. 10/02/2022 6:51 AM
[2022-10-02 07:45] LABS: Hematocrit (blood only) 31.2 % (42.0-52.0); Hemoglobin 10.9 g/dl (14.0-18.0); Mean Corpuscular Hemoglobin 32.8 pg (25.0-34.0); Mean Corpuscular Hgb Conc 34.9 g/dL (32.0-36.0); Mean Platelet Volume 10.6 fL (9.4-12.4); Platelet Count 248 K/uL (130-400); RDW Coefficient of Variation 13.7 % (11.5-14.5); RDW Standard Deviation 46.5 fL (36.4-46.3); Red Blood Count 3.32 M/uL (4.70-6.10); Reticulocyte % 1.5 % (0.5-2.0); Reticulocytes # 0.05 10^6/uL (0.02-0.10)
[2022-10-02] MEDS: GABAPENTIN 100 MG CAP PO SCH ×3 (08:07→21:28)
[2022-10-02] MEDS: gemfibroziL 600 MG TAB PO SCH ×2 (08:07→21:27)
[2022-10-02] MEDS: amLODIPine BESYLATE 5 MG TAB PO SCH (08:08)
[2022-10-02] MEDS: PANTOprazole 40 MG TAB PO SCH (08:08)
[2022-10-02] MEDS: ESCITALOPRAM OXALATE 20 MG TAB PO SCH (08:08)
[2022-10-02] MEDS: FENOFIBRATE NANOCRYSTALLIZED 145 MG TABLET PO SCH (08:09)
[2022-10-02] MEDS: FOLIC ACID 1 MG TAB PO SCH (08:09)
[2022-10-02] MEDS: FLUTICASONE/VILANTEROL 200/25MCG 14 PUFFS/INHALER INH SCH (08:09)
[2022-10-02 08:10] LABS: BUN Creatinine Ratio 14.6 (10-20); Calcium 8.4 mg/dl (8.6-10.3); Creatinine Clr Calc Pharmacy 62.7 ml/min; Est GFR (African American) 42.5 ml/min; Est GFR (Non-African American) 36.7 ml/min; Magnesium 1.9 mg/dl (1.7-2.4)
[2022-10-02 08:12] LABS: Basophils # (auto) 0.01 K/uL (0-0.2); Basophils % (auto) 0.1 %; Immature Granulocytes # (auto) 0.08 K/uL (0.01-0.20); Immature Granulocytes % (auto) 0.7 %; Lymphocytes # (auto) 0.59 K/uL (1.2-3.4); Monocytes # (auto) 0.42 K/uL (0.11-0.59); Monocytes % (auto) 3.5 %; Neutrophils % (auto) 90.7 %
[2022-10-02] MEDS: oxyCODONE/ACETAMINOPHEN 5mg/325mg TAB PO PRN (08:22)
[2022-10-02] MEDS: METOPROLOL TARTRATE 50 MG TAB PO SCH ×2 (08:28→21:26)
[2022-10-02 08:29] LABS: Ferritin 296.9 ng/ml (8-388)
[2022-10-02 08:33] LABS: Estimated Average Glucose 105 mg/dl; Hemoglobin A1C 5.3 % (4.5-5.6)
[2022-10-02] MEDS ORDERED: ENOXAPARIN INJ 40 MG/0.4 ML SYR SQ SCH (09:00)
[2022-10-02] MEDS ORDERED: METOPROLOL TARTRATE 25 MG TAB PO SCH (09:00)
[2022-10-02] MEDS: SODIUM CHLORIDE 0.9% 1000ML 1,000 ML IV SCH ×2 (10:51→20:33)
[2022-10-02] MEDS: CYANOCOBALAMIN (B-12) 500 MCG TABLET PO SCH (11:03)
--- NOTE | 2022-10-02 11:29 | Electrocardiogram Report ---
Test Reason : Blood Pressure : / mmHG Vent. Rate : 093 BPM Atrial Rate : 093 BPM P-R Int : 130 ms QRS Dur : 090 ms QT Int : 346 ms P-R-T Axes : 059 069 043 degrees QTc Int : 430 ms Poor data quality, interpretation may be adversely affected Normal sinus rhythm Normal ECG When compared with ECG of 23-FEB-2019 22:15, No significant change was found Confirmed by Anmol Teran ([id number]) on 10/02/2022 11:28:55 AM Referred By: Tequila Nicholas Confirmed By:Benjamin Teran
--- NOTE | 2022-10-02 11:48 | Surgery Progress Note ---
Date of Service October 02, 2022 Assessment & Plan (1) Acute appendicitis with localized peritonitis: (2) CARLOS (acute kidney injury): Plan: creatinine improving to 1.98 today (3) Sepsis: Plan POD # 1 s/p laparoscopic appendectomy for perforated appendicitis - afebrile - vss - creatinine improving 1.98 today (3.15 previously) - Satish drain serosanguineous Plan: Continue pain management as needed Continue IV zosyn Clear liquids today OOB to chair and ambulate appreciate hospitalist assistance Continue satish drain to bulb suction Likely here though weekend for IV antibiotics Dr. Zurita covering this weekend Dr. Jules has seen and examined pt, agrees with above. Admission and Anticipated Discharge Date Admission Date: October 01, 2022 Subjective feeling okay this morning having pain at incision sites, preop pain resolved no n,v, tolerating clear liquids no chest pain or shortness of breath Physical Exam Constitutional: WD/WN, vitals as above + obese, cooperative and comfortable; no acute distress and not ill appearing Respiratory: normal respiratory effort; no respiratory distress Gastrointestinal (Abdomen): Inspection/Auscultation: abdomen normal to inspection, + abdominal surgical incision (clean/dry/intact with dermabond) and + abdominal surgical drain present (serosanguineous drainage); abdomen not distended Percussion/Palpation: + abdomen tender (at incision sites appropriate postop ) and abdomen soft; no guarding and abdomen not rigid Skin: no rashes, warm and dry Psychiatric: A+Ox3, euthymic affect Results & Data Vital Signs (Past 12 Hours) Vital Signs Temp Pulse Pulse Resp BP Pulse Ox O2 Del Method 10/02/22 11:23 36.9 C 93 H 18 111/69 95 Room Air 10/02/22 09:51 Room Air 10/02/22 08:47 36.6 C 95 H 16 121/81 95 Room Air 10/02/22 07:30 36.8 C 87 16 124/70 93 Room Air 10/02/22 03:39 37.2 C 96 H 16 138/88 98 Room Air 10/02/22 02:18 37.0 C 86 16 155/81 H 98 Oxymask 10/02/22 02:18 Oxymask 10/02/22 02:18 37.0 C 83 18 131/74 97 Oxymask 10/02/22 01:15 36.9 C 85 16 134/79 95 Oxymask 10/02/22 00:15 37.0 C 83 18 131/74 97 Oxymask 10/02/22 00:51 36.8 C 89 16 128/75 94 Oxymask 10/01/22 23:49 37.1 C 93 H 13 125/65 93 Oxymask O2 Flow Rate 10/02/22 11:23 10/02/22 09:51 10/02/22 08:47 10/02/22 07:30 10/02/22 03:39 10/02/22 02:18 2 10/02/22 02:18 3 10/02/22 02:18 4 10/02/22 01:15 2 10/02/22 00:15 4 10/02/22 00:51 2 10/01/22 23:49 4 Laboratory Results 10/02/22 10/02/22 10/02/22 Range/Units 08:12 07:03 07:03 WBC (4.8-10.8) K/ul RBC (4.70-6.10) M/uL Hgb (14.0-18.0) g/dl Hct (42.0-52.0) % MCV (80.0-100.0) fL MCH (25.0-34.0) pg MCHC (32.0-36.0) g/dL RDW Std Deviation (36.4-46.3) fL RDW Coeff of Jade (11.5-14.5) % Plt Count (130-400) K/uL MPV (9.4-12.4) fL Immature Gran % (Auto) % Neut % (Auto) % Lymph % (Auto) % [place] % (Auto) % Eos % (Auto) % Baso % (Auto) % Reticulocyte % (Auto) (0.5-2.0) % Neut # (Auto) (1.40-6.50) K/uL Lymph # (Auto) (1.2-3.4) K/uL [place] # (Auto) (0.11-0.59) K/uL Eos # (Auto) (0-0.50) K/uL Baso # (Auto) (0-0.2) K/uL Reticulocyte # (0.02-0.10) 10^6/uL Immature Gran # (Auto) (0.01-0.20) K/uL Sodium 137 (136-145) mmol/L Potassium 4.0 (3.5-5.1) mmol/L Chloride 105 (98-107) mmol/L Carbon Dioxide 23 (21-32) mmol/L Anion Gap 9 (3-11) BUN 29 H (6-23) mg/dl Creatinine 1.98 H D (0.6-1.4) mg/dl Est Cr Clr Drug Dosing 62.7 ml/min Est GFR ( Amer) 42.5 ml/min Est GFR (Non-Af Amer) 36.7 ml/min BUN/Creatinine Ratio 14.6 (10-20) Glucose 173 H (70-99(Fasting)) mg/dl POC Glucose 157 H (70-99) mg/dl Estimat Average Glucose mg/dl Hemoglobin A1c (4.5-5.6) % Calcium 8.4 L (8.6-10.3) mg/dl Magnesium 1.9 (1.7-2.4) mg/dl Iron 10 L (35-175) mcg/dl Transferrin 191 L (200-360) mg/dl Ferritin 296.9 (8-388) ng/ml Total Bilirubin (0.2-1.0) mg/dl AST (13-39) U/L ALT (7-52) U/L Alkaline Phosphatase (34-104) U/L Total Protein (6.0-8.3) gm/dl Albumin (3.4-5.0) gm/dl Globulin (2.5-4.0) gm/dl Albumin/Globulin Ratio (0.9-2) Lipase (11-82) U/L Vitamin B12 142 L (180-914) pg/ml Folate 18.97 (>5.38) ng/ml Urine Color Urine Appearance (Clear) Urine pH (4.5-7.5) Ur Specific [place] (1.000-1.030) Urine Protein (Negative) Urine Glucose (UA) (Negative) Urine Ketones (Negative) Urine Blood (Negative) Urine Nitrite (Negative) Urine Bilirubin (Negative) Urine Urobilinogen (Negative) Ur Leukocyte Esterase (Negative) Urine WBC (Auto) (0-5) /hpf Urine RBC (Auto) (0-4) /hpf U Hyaline Cast (Auto) (0-5) /lpf U Epithel Cells (Auto) (0-5) /lpf Urine Bacteria (Auto) (Negative) Ur Renal Epithelial Cell Urine Crystals Calcium Oxalate Crystal (None Prsent) SARS-CoV-2, RNA, NAAT (NEGATIVE) 10/02/22 10/02/22 10/01/22 Range/Units 07:03 00:49 19:18 WBC 11.90 H (4.8-10.8) K/ul RBC 3.32 L (4.70-6.10) M/uL Hgb 10.9 L (14.0-18.0) g/dl Hct 31.2 L (42.0-52.0) % MCV 94.0 (80.0-100.0) fL MCH 32.8 (25.0-34.0) pg MCHC 34.9 (32.0-36.0) g/dL RDW Std Deviation 46.5 H (36.4-46.3) fL RDW Coeff of Jade 13.7 (11.5-14.5) % Plt Count 248 (130-400) K/uL MPV 10.6 (9.4-12.4) fL Immature Gran % (Auto) 0.7 % Neut % (Auto) 90.7 % Lymph % (Auto) 5.0 % [place] % (Auto) 3.5 % Eos % (Auto) 0.0 % Baso % (Auto) 0.1 % Reticulocyte % (Auto) 1.5 (0.5-2.0) % Neut # (Auto) 10.80 H (1.40-6.50) K/uL Lymph # (Auto) 0.59 L (1.2-3.4) K/uL [place] # (Auto) 0.42 (0.11-0.59) K/uL Eos # (Auto) 0.00 (0-0.50) K/uL Baso # (Auto) 0.01 (0-0.2) K/uL Reticulocyte # 0.05 (0.02-0.10) 10^6/uL Immature Gran # (Auto) 0.08 (0.01-0.20) K/uL Sodium (136-145) mmol/L Potassium (3.5-5.1) mmol/L Chloride (98-107) mmol/L Carbon Dioxide (21-32) mmol/L Anion Gap (3-11) BUN (6-23) mg/dl Creatinine (0.6-1.4) mg/dl Est Cr Clr Drug Dosing ml/min Est GFR ( Amer) ml/min Est GFR (Non-Af Amer) ml/min BUN/Creatinine Ratio (10-20) Glucose (70-99(Fasting)) mg/dl POC Glucose 158 H (70-99) mg/dl Estimat Average Glucose mg/dl Hemoglobin A1c (4.5-5.6) % Calcium (8.6-10.3) mg/dl Magnesium (1.7-2.4) mg/dl Iron (35-175) mcg/dl Transferrin (200-360) mg/dl Ferritin (8-388) ng/ml Total Bilirubin (0.2-1.0) mg/dl AST (13-39) U/L ALT (7-52) U/L Alkaline Phosphatase (34-104) U/L Total Protein (6.0-8.3) gm/dl Albumin (3.4-5.0) gm/dl Globulin (2.5-4.0) gm/dl Albumin/Globulin Ratio (0.9-2) Lipase (11-82) U/L Vitamin B12 (180-914) pg/ml Folate (>5.38) ng/ml Urine Color Dark Yellow Urine Appearance Turbid A (Clear) Urine pH 5.0 (4.5-7.5) Ur Specific [place] 1.022 (1.000-1.030) Urine Protein Trace H (Negative) Urine Glucose (UA) Negative (Negative) Urine Ketones 1+ H (Negative) Urine Blood Negative (Negative) Urine Nitrite Negative (Negative) Urine Bilirubin 1+ H (Negative) Urine Urobilinogen Negative (Negative) Ur Leukocyte Esterase Trace H (Negative) Urine WBC (Auto) 1-5 (0-5) /hpf Urine RBC (Auto) 5-10 H (0-4) /hpf U Hyaline Cast (Auto) 1-5 (0-5) /lpf U Epithel Cells (Auto) >30 H (0-5) /lpf Urine Bacteria (Auto) 1+ H (Negative) Ur Renal Epithelial Cell Not Reportable Urine Crystals Not Reportable Calcium Oxalate Crystal Present A (None Prsent) SARS-CoV-2, RNA, NAAT (NEGATIVE) 10/01/22 10/01/22 10/01/22 Range/Units 19:13 18:35 18:35 WBC (4.8-10.8) K/ul RBC (4.70-6.10) M/uL Hgb (14.0-18.0) g/dl Hct (42.0-52.0) % MCV (80.0-100.0) fL MCH (25.0-34.0) pg MCHC (32.0-36.0) g/dL RDW Std Deviation (36.4-46.3) fL RDW Coeff of Jade (11.5-14.5) % Plt Count (130-400) K/uL MPV (9.4-12.4) fL Immature Gran % (Auto) % Neut % (Auto) % Lymph % (Auto) % [place] % (Auto) % Eos % (Auto) % Baso % (Auto) % Reticulocyte % (Auto) (0.5-2.0) % Neut # (Auto) (1.40-6.50) K/uL Lymph # (Auto) (1.2-3.4) K/uL [place] # (Auto) (0.11-0.59) K/uL Eos # (Auto) (0-0.50) K/uL Baso # (Auto) (0-0.2) K/uL Reticulocyte # (0.02-0.10) 10^6/uL Immature Gran # (Auto) (0.01-0.20) K/uL Sodium 131 L (136-145) mmol/L Potassium 4.3 (3.5-5.1) mmol/L Chloride 100 (98-107) mmol/L Carbon Dioxide 25 (21-32) mmol/L Anion Gap 6 (3-11) BUN 34 H (6-23) mg/dl Creatinine 3.15 H (0.6-1.4) mg/dl Est Cr Clr Drug Dosing 39.4 ml/min Est GFR ( Amer) 24.2 ml/min Est GFR (Non-Af Amer) 20.9 ml/min BUN/Creatinine Ratio 10.8 (10-20) Glucose 178 H (70-99(Fasting)) mg/dl POC Glucose (70-99) mg/dl Estimat Average Glucose 105 mg/dl Hemoglobin A1c 5.3 (4.5-5.6) % Calcium 9.0 (8.6-10.3) mg/dl Magnesium 1.3 L (1.7-2.4) mg/dl Iron (35-175) mcg/dl Transferrin (200-360) mg/dl Ferritin (8-388) ng/ml Total Bilirubin 0.7 (0.2-1.0) mg/dl AST 20 (13-39) U/L ALT 14 (7-52) U/L Alkaline Phosphatase 40 (34-104) U/L Total Protein 6.9 (6.0-8.3) gm/dl Albumin 3.8 (3.4-5.0) gm/dl Globulin 3.1 (2.5-4.0) gm/dl Albumin/Globulin Ratio 1.2 (0.9-2) Lipase 13 (11-82) U/L Vitamin B12 (180-914) pg/ml Folate (>5.38) ng/ml Urine Color Urine Appearance (Clear) Urine pH (4.5-7.5) Ur Specific [place] (1.000-1.030) Urine Protein (Negative) Urine Glucose (UA) (Negative) Urine Ketones (Negative) Urine Blood (Negative) Urine Nitrite (Negative) Urine Bilirubin (Negative) Urine Urobilinogen (Negative) Ur Leukocyte Esterase (Negative) Urine WBC (Auto) (0-5) /hpf Urine RBC (Auto) (0-4) /hpf U Hyaline Cast (Auto) (0-5) /lpf U Epithel Cells (Auto) (0-5) /lpf Urine Bacteria (Auto) (Negative) Ur Renal Epithelial Cell Urine Crystals Calcium Oxalate Crystal (None Prsent) SARS-CoV-2, RNA, NAAT NEGATIVE (NEGATIVE) 10/01/22 Range/Units 18:35 WBC 13.80 H (4.8-10.8) K/ul RBC 3.39 L (4.70-6.10) M/uL Hgb 10.8 L (14.0-18.0) g/dl Hct 31.8 L (42.0-52.0) % MCV 93.8 (80.0-100.0) fL MCH 31.9 (25.0-34.0) pg MCHC 34.0 (32.0-36.0) g/dL RDW Std Deviation 46.3 (36.4-46.3) fL RDW Coeff of Jade 13.4 (11.5-14.5) % Plt Count 266 (130-400) K/uL MPV 10.3 (9.4-12.4) fL Immature Gran % (Auto) 0.6 % Neut % (Auto) 84.3 % Lymph % (Auto) 8.8 % [place] % (Auto) 6.2 % Eos % (Auto) 0.0 % Baso % (Auto) 0.1 % Reticulocyte % (Auto) (0.5-2.0) % Neut # (Auto) 11.63 H (1.40-6.50) K/uL Lymph # (Auto) 1.22 (1.2-3.4) K/uL [place] # (Auto) 0.85 H (0.11-0.59) K/uL Eos # (Auto) 0.00 (0-0.50) K/uL Baso # (Auto) 0.02 (0-0.2) K/uL Reticulocyte # (0.02-0.10) 10^6/uL Immature Gran # (Auto) 0.08 (0.01-0.20) K/uL Sodium (136-145) mmol/L Potassium (3.5-5.1) mmol/L Chloride (98-107) mmol/L Carbon Dioxide (21-32) mmol/L Anion Gap (3-11) BUN (6-23) mg/dl Creatinine (0.6-1.4) mg/dl Est Cr Clr Drug Dosing ml/min Est GFR ( Amer) ml/min Est GFR (Non-Af Amer) ml/min BUN/Creatinine Ratio (10-20) Glucose (70-99(Fasting)) mg/dl POC Glucose (70-99) mg/dl Estimat Average Glucose mg/dl Hemoglobin A1c (4.5-5.6) % Calcium (8.6-10.3) mg/dl Magnesium (1.7-2.4) mg/dl Iron (35-175) mcg/dl Transferrin (200-360) mg/dl Ferritin (8-388) ng/ml Total Bilirubin (0.2-1.0) mg/dl AST (13-39) U/L ALT (7-52) U/L Alkaline Phosphatase (34-104) U/L Total Protein (6.0-8.3) gm/dl Albumin (3.4-5.0) gm/dl Globulin (2.5-4.0) gm/dl Albumin/Globulin Ratio (0.9-2) Lipase (11-82) U/L Vitamin B12 (180-914) pg/ml Folate (>5.38) ng/ml Urine Color Urine Appearance (Clear) Urine pH (4.5-7.5) Ur Specific [place] (1.000-1.030) Urine Protein (Negative) Urine Glucose (UA) (Negative) Urine Ketones (Negative) Urine Blood (Negative) Urine Nitrite (Negative) Urine Bilirubin (Negative) Urine Urobilinogen (Negative) Ur Leukocyte Esterase (Negative) Urine WBC (Auto) (0-5) /hpf Urine RBC (Auto) (0-4) /hpf U Hyaline Cast (Auto) (0-5) /lpf U Epithel Cells (Auto) (0-5) /lpf Urine Bacteria (Auto) (Negative) Ur Renal Epithelial Cell Urine Crystals Calcium Oxalate Crystal (None Prsent) SARS-CoV-2, RNA, NAAT (NEGATIVE)
--- NOTE | 2022-10-02 14:17 | Hospitalist Progress Note ---
Date of Service October 02, 2022 Assessment & Plan (1) Acute appendicitis with localized peritonitis: (2) Sepsis: (3) CARLOS (acute kidney injury): (4) HTN (hypertension): (5) Schizophrenia: (6) Asthma: (7) CARYN (obstructive sleep apnea): (8) Morbid obesity: (9) Hyperlipidemia: (10) Hypothyroidism: Plan Sepsis 2/[address] abd/pelvis with enlarged, inflamed appendix measuring approximately 1.5 cm in diameter, compatible with acute appendicitis. Fluid and fat stranding in the right lower quadrant may represent appendix microperforation POD #1 s/p laparoscopic appendectomy by Dr. Jules Monitor H/H - stable hgb 10.9 (pre-op 10.9) Patient is doing well postoperatively tolerating clears, no nausea, passing flatus but no postop bowel movement Per surgery, continue IV Zosyn OOB to chair and ambulate CARLOS on CKD - Cr 3.15 on admission (baseline mid-high 1s). Improved to 1.98 today on IV fluids, continue to monitor. Continue holding ARB until Cr back to baseline HTN - stable, continue home medications DM II - insulin requiring, well-controlled as of recent hemoglobin A1c of 5.3 last May 2022 Hypothyroidism- continue levothyroxine OHS on CPAP/asthma, stable lung status History traumatic brain injury Paranoid schizophrenia/mood/anxiety disorder -at baseline DVT Ppx: per primary service I spent a total of 60 minutes coordinating, documenting, and providing care for this patient excluding time spent in the performance of separately billed s ervices. Admission and Anticipated Discharge Date Admission Date: October 01, 2022 Supervising Physician Co-Signing Physician Notes Patient seen and examined at bedside as a follow-up of medical management for sepsis secondary to perforated appendicitis status post laparoscopic appendectomy by Dr. Jules on 10/01/2022. Patient currently on antibiotic, tolerating clear diet, sitting up in chair, appears comfortable, reports pain under control. Patient also with acute kidney injury over CKD, creatinine trending down, continue with IV fluids for now. On examination, patient sitting up in chair, on room air, NAD, abdomen with clean dressing without soakage, AMARIS drain with minimal serosanguineous collection noted, rest of the examinations as above. I have seen and examined the patient and have discussed the case with the provider above. I agree with the assessment and plan as stated. Subjective Patient seen and examined in 384- 2. Feeling well postoperatively with abdominal pain 07/21. Denies any nausea or vomiting. Tolerating clears without issue. Passing flatus but no postop bowel movement. Denies any fever, chills, headache, lightheadedness, chest pain, shortness of breath, dysuria or diarrhea. Review of Systems Review of Systems: At least ten systems reviewed and negative except as noted in the HPI. Physical Exam Physical Exam: Gen: WD/WN, NAD, lying in bed, A&Ox3, obese HEENT: Normocephalic, atraumatic, conjunctivae moist, sclerae anicteric, mucous membranes moist Lung: Clear to Auscultation bilaterally, no wheezes/rales/rhonchi Heart: Regular rate, regular rhythm, no murmurs, rubs, or gallops Abdomen: Soft but TTP post-operatively, healing lap incisions c/d/i, + AMARIS drain Extremities: no edema Skin: Warm, no rash Results & Data Results & Data Vital Signs (Past 12 Hours) Vital Signs Temp Pulse Pulse Resp BP Pulse Ox O2 Del Method 10/02/22 11:23 36.9 C 93 H 18 111/69 95 Room Air 10/02/22 09:51 Room Air 10/02/22 08:47 36.6 C 95 H 16 121/81 95 Room Air 10/02/22 07:30 36.8 C 87 16 124/70 93 Room Air 10/02/22 03:39 37.2 C 96 H 16 138/88 98 Room Air 10/02/22 02:18 37.0 C 86 16 155/81 H 98 Oxymask 10/02/22 02:18 Oxymask 10/02/22 02:18 37.0 C 83 18 131/74 97 Oxymask O2 Flow Rate 10/02/22 11:23 10/02/22 09:51 10/02/22 08:47 10/02/22 07:30 10/02/22 03:39 10/02/22 02:18 2 10/02/22 02:18 3 10/02/22 02:18 4 Laboratory Results Short CBC 10/01/22 10/02/22 Range/Units 18:35 07:03 WBC 13.80 H 11.90 H (4.8-10.8) K/ul Hgb 10.8 L 10.9 L (14.0-18.0) g/dl Hct 31.8 L 31.2 L (42.0-52.0) % Plt Count 266 248 (130-400) K/uL BMP 10/01/22 10/02/22 18:35 07:03 Sodium 131 L 137 Potassium 4.3 4.0 Chloride 100 105 Carbon Dioxide 25 23 BUN 34 H 29 H Creatinine 3.15 H 1.98 H D Glucose 178 H 173 H Calcium 9.0 8.4 L Liver Function 10/01/22 Range/Units 18:35 Total Bilirubin 0.7 (0.2-1.0) mg/dl AST 20 (13-39) U/L ALT 14 (7-52) U/L Alkaline Phosphatase 40 (34-104) U/L Albumin 3.8 (3.4-5.0) gm/dl Urine 10/01/22 Range/Units 19:18 Urine Color Dark Yellow Urine Appearance Turbid A (Clear) Urine pH 5.0 (4.5-7.5) Ur Specific [place] 1.022 (1.000-1.030) Urine Protein Trace H (Negative) Urine Glucose (UA) Negative (Negative) Diagnostic Findings Abdomen/Pelvis CT 10/01/22 18:44 CR Exam(s): CT ABDOMEN + PELVIS Without Contrast EXAM: CT Abdomen and Pelvis Without Intravenous Contrast CLINICAL HISTORY: Reason for exam: RLQ abd pain, appy. TECHNIQUE: Axial computed tomography images of the abdomen and pelvis without intravenous contrast. CTDI is 28.91 mGy and DLP is 1593.32 mGy-cm. Automated exposure control was utilized for the study. A dose lowering technique was utilized adhering to the principles of ALARA. COMPARISON: None FINDINGS: Lung bases: Unremarkable. No mass. No consolidation. ABDOMEN: Liver: Hepatomegaly. Gallbladder and bile ducts: Contracted gallbladder. No calcified stones. No ductal dilation. Pancreas: Unremarkable. No ductal dilation. Spleen: Unremarkable. No splenomegaly. Adrenals: Unremarkable. No mass. Kidneys and ureters: Nonspecific bilateral perinephric fat stranding. No hydronephrosis or stone. Stomach and bowel: Evaluation of the stomach is limited by under distention. Inflammatory change of the cecum may represent reactive inflammation. No mucosal thickening. No bowel obstruction. PELVIS: Appendix: Enlarged, inflamed appendix measuring approximately 1.5 cm in diameter, compatible with acute appendicitis. Fluid and fat stranding in the right lower quadrant may represent appendix microperforation. No fluid collection or free air. Bladder: Mild prominence of the bladder wall is nonspecific. Please correlate with urinalysis if concerned for cystitis. No stones. Reproductive: Unremarkable as visualized. ABDOMEN and PELVIS: Intraperitoneal space: See above. Bones/joints: Degenerative changes of the spine. No acute fracture. No dislocation. Soft tissues: Small fat-containing umbilical hernia. Vasculature: Phleboliths in the pelvis. No abdominal aortic aneurysm. Lymph nodes: Unremarkable. No enlarged lymph nodes. IMPRESSION: 1. Enlarged, inflamed appendix measuring approximately 1.5 cm in diameter, compatible with acute appendicitis. Fluid and fat stranding in the right lower quadrant may represent appendix microperforation. No fluid collection or free air. 2. Mild prominence of the bladder wall is nonspecific. Please correlate with urinalysis if concerned for cystitis. 3. Hepatomegaly. Communications: Call Doctor Appendicitis Electronically signed by: Nicole Eastman M.D. 10/01/22 20:17 PM Chest X-Ray 10/01/22 23:42 XR chest 1V portable CLINICAL HISTORY: Renal failure. COMPARISON STUDY: Chest radiograph February 23, 2019. FINDINGS: Lung volumes are mildly diminished. There is no pneumothorax or pleural effusion is no evidence for pulmonary edema. Mild right infrahilar opacity and possible retrocardiac opacity. Prominent bilateral perihilar markings are noted. IMPRESSION: 1. Suspected bibasilar opacities which could reflect atelectasis or consolidation. Low lung volumes. 2. No evidence for pulmonary edema. ACT 112: Negative or not required by law. Electronically signed by: Clyde Corley M.D. 10/02/2022 6:51 AM
[2022-10-02] MEDS ORDERED: OLANZAPINE SAMIDORPHAN PO SCH (21:00)
[2022-10-02] MEDS: traZODone HCL 100 MG TAB PO SCH (21:26)
[2022-10-02] MEDS: OLANZapine 10 MG TAB PO SCH (21:27)
[2022-10-03] MEDS: PIPERACILLIN/TAZOBACTAM 4.5 GM in DEXTROSE 5% 100 ML IV SCH ×3 (03:20→19:42)
[2022-10-03] MEDS: oxyCODONE/ACETAMINOPHEN 5mg/325mg TAB PO PRN (03:23)
--- NOTE | 2022-10-03 04:37 | Emergency Department Note ---
Impression & Plan Acute appendicitis with localized peritonitis, Acute kidney injury ED Provider Note CHIEF COMPLAINT: RLQ abd pain HISTORY OF PRESENT ILLNESS: This 57 yo male patient history of morbid obesity, obstructive sleep apnea, schizophrenia, hypertension, hypercholesterolemia and hypothyroidism presents to the emergency department with complaints of right lower quadrant abdominal pain x2 days. Patient resides at [facility]. He states the pain has been progressive over the last 2 days, but he was able to eat without difficulty. He denies any blood in his stools, any difficulty urinating. Patient has not had any vomiting or diarrhea. REVIEW OF SYSTEMS: A review of systems was performed with positives and pertinent negatives listed in the history of present illness. 10 systems were reviewed and are otherwise negative. ALLERGIES: see below MEDICATIONS: see below PMH: see below SOCIAL HISTORY: see below DDx: Appendicitis, diverticulitis, UTI, obstruction, mesenteric ischemia, aortic pathology, inflammatory bowel disease, renal colic, hernia, constipation, as well as other pathologies. PHYSICAL EXAM: Vital signs reviewed. General: Morbidly obese 57-year-old male, in no significant distress. HEENT: No scleral icterus, PERRLA, neck supple. Atraumatic. Cardiovascular: Tachycardic rate and regular rhythm, no extra sounds. Pulmonary: Clear to auscultation bilaterally, normal work of breathing. Abdomen: Soft, tender to palpation in the right lower quadrant, positive rebound, positive guarding, nondistended, positive bowel sounds. Musculoskeletal: Atraumatic, mild BLE peripheral edema. Neurologic: Patient awake alert and oriented x 3 Skin: Warm, dry, no rash EMERGENCY DEPARTMENT COURSE/MDM: This patient was evaluated and appeared to be in no significant distress. IV access was obtained and laboratory work was drawn. The patient was placed on campus monitor noted to be in a sinus tachycardia. IV hydration was initiated. Laboratory work reveals a creatinine of 3, which is new for the patient upon review of his external medical records. Patient was medicated with 1000 mg of IV acetaminophen. CT imaging of the abdomen pelvis was performed without contrast due to the CARLOS and reveals evidence of acute appendicitis with microperforation per radiology. IV Zosyn was administered. Patient's case was discussed with general surgery, Dr. Jules who evaluated the patient for definitive management. MONITORING: An order for cardiac monitoring was placed and the patient is noted to be in a sinus tachycardia at 114 beats per minute. RADIOLOGY: CT imaging of the abdomen pelvis to my interpretation reveals evidence of inflammatory change in the right lower quadrant with dilated appendix. Otherwise defer to radiology. EKG: To my interpretation reveals a normal sinus rhythm at [address] segments. QTc of 430. No PVC, no PAC. No significant change from previous dated February 23, 2019 DISPOSITION: Admission Past Med/Surg History Medical History (Updated 10/07/22 @ 05:29 by Orquidea Vo MD) Anxiety Asthma Ataxic gait Chronic kidney disease Diabetes II GERD (gastroesophageal reflux disease) High blood pressure Hyperlipidemia Hypothyroidism Morbid obesity Paranoid schizophrenia Sleep apnea Family History Mother Diabetes Heart disease Father Diabetes Heart disease Social History Smoking Status: Never smoker Second Hand Exposure: No; Hx Alcohol Use: No Hx Substance Use: No Preferred Language: Thai Communication Ability: Effective Visual Impairment: No Limitations Hearing Ability: Normal General Lithographic Worker Required: No Beliefs That Will Affect Care: None marital status: Single Current Living Situation: Personal Care Facility Current Living Situation Comment: [facility] current occupational status: employed Feels Safe at Home: Yes Assistive Devices: None Allergies Allergies Allergy/AdvReac Type Severity Reaction Status Date / Time No Known Allergies Allergy Verified 08/12/22 13:06 Home Meds Home Medications Medication Instructions Recorded Confirmed Systane Hs Eye Ointment 1 applic OPL HS 10/01/22 Systane Hs Eye Ointment 1 applic OPR QID 10/01/22 acetaminophen 325 mg tablet 650 mg PO AMHS 10/01/22 10/01/22 amlodipine 5 mg tablet 5 mg PO DAILY 10/01/22 10/01/22 carboxymethylcellulose sodium 1 % 1 drp OPL TID PRN Dry Eyes 10/01/22 10/01/22 eye liquid gel drops cholecalciferol (vitamin D3) 25 25 mcg PO DAILY 10/01/22 10/01/22 mcg (1,000 unit) tablet (Vitamin D3) clonidine HCl 0.1 mg tablet 0.1 mg PO BID 10/01/22 10/01/22 cyclobenzaprine 5 mg tablet 5 mg PO TID 10/01/22 10/01/22 dextromethorphan-guaifenesin 10 10 ml PO Q4H PRN Cough 10/01/22 10/01/22 mg-100 mg/5 mL oral syrup docusate sodium 100 mg capsule 100 mg PO BID 10/01/22 10/01/22 dulaglutide 4.5 mg/0.5 mL 4.5 mg subcut WK 10/01/22 10/01/22 subcutaneous pen injector (Trulicity) escitalopram oxalate 20 mg tablet 20 mg PO DAILY 10/01/22 10/01/22 fenofibrate nanocrystallized 145 145 mg PO DAILY 10/01/22 10/01/22 mg tablet fluticasone 250 mcg-salmeterol 50 1 ea inhalation BID 10/01/22 10/01/22 mcg/dose blistr powdr for inhalation (Advair Diskus) folic acid 1 mg tablet 1 mg PO DAILY 10/01/22 10/01/22 gabapentin 100 mg capsule 200 mg PO TID 10/01/22 10/01/22 gemfibrozil 600 mg tablet 600 mg PO BID 10/01/22 10/01/22 insulin glargine 100 unit/mL (3 25 unit subcut AMPM 10/01/22 10/01/22 mL) subcutaneous pen (Lantus Solostar U-100 Insulin) insulin lispro 100 unit/mL 6 unit subcut TIDM 10/01/22 10/01/22 subcutaneous pen (Humalog KwikPen (U-100) Insulin) levothyroxine 25 mcg tablet 25 mcg PO DAILY 10/01/22 10/01/22 losartan 50 mg tablet 50 mg PO DAILY 10/01/22 10/01/22 metoprolol tartrate 50 mg tablet 50 mg PO BID 10/01/22 10/01/22 olanzapine 10 mg-samidorphan 10 mg 1 tab PO HS 10/01/22 10/01/22 tablet (Lybalvi) omeprazole 20 mg capsule,delayed 20 mg PO DAILY 10/01/22 10/01/22 release trazodone 100 mg tablet 100 mg PO HS 10/01/22 10/01/22 Previous Rx's Medication Instructions Recorded amoxicillin 875 mg-potassium 1 tab PO BID #14 tabs 10/05/22 clavulanate 125 mg tablet cyanocobalamin (vitamin B-12) 1,000 mcg PO DAILY #30 caps 10/05/22 1,000 mcg capsule ferrous gluconate 236 mg (27 mg 236 mg PO DAILY #30 tabs 10/05/22 iron) tablet oxycodone-acetaminophen 5 mg-325 1 tab PO Q6H PRN pain #5 tabs 10/05/22 mg tablet Results & Data (ED) Home Medications Current Medication List: was personally reviewed by me Laboratory Data Attestation: I reviewed the patient's lab results. 10/02/22 07:03 10/02/22 07:03 Lab Results 10/01/22 10/01/22 10/01/22 Range/Units 18:35 18:35 18:35 WBC 13.80 H (4.8-10.8) K/ul RBC 3.39 L (4.70-6.10) M/uL Hgb 10.8 L (14.0-18.0) g/dl Hct 31.8 L (42.0-52.0) % MCV 93.8 (80.0-100.0) fL MCH 31.9 (25.0-34.0) pg MCHC 34.0 (32.0-36.0) g/dL RDW Std Deviation 46.3 (36.4-46.3) fL RDW Coeff of Jade 13.4 (11.5-14.5) % Plt Count 266 (130-400) K/uL MPV 10.3 (9.4-12.4) fL Immature Gran % (Auto) 0.6 % Neut % (Auto) 84.3 % Lymph % (Auto) 8.8 % [place] % (Auto) 6.2 % Eos % (Auto) 0.0 % Baso % (Auto) 0.1 % Reticulocyte % (Auto) (0.5-2.0) % Neut # (Auto) 11.63 H (1.40-6.50) K/uL Lymph # (Auto) 1.22 (1.2-3.4) K/uL [place] # (Auto) 0.85 H (0.11-0.59) K/uL Eos # (Auto) 0.00 (0-0.50) K/uL Baso # (Auto) 0.02 (0-0.2) K/uL Reticulocyte # (0.02-0.10) 10^6/uL Immature Gran # (Auto) 0.08 (0.01-0.20) K/uL Sodium 131 L (136-145) mmol/L Potassium 4.3 (3.5-5.1) mmol/L Chloride 100 (98-107) mmol/L Carbon Dioxide 25 (21-32) mmol/L Anion Gap 6 (3-11) BUN 34 H (6-23) mg/dl Creatinine 3.15 H (0.6-1.4) mg/dl Est Cr Clr Drug Dosing 39.4 ml/min Est GFR ( Amer) 24.2 ml/min Est GFR (Non-Af Amer) 20.9 ml/min BUN/Creatinine Ratio 10.8 (10-20) Glucose 178 H (70-99(Fasting)) mg/dl POC Glucose (70-99) mg/dl Estimat Average Glucose 105 mg/dl Hemoglobin A1c 5.3 (4.5-5.6) % Calcium 9.0 (8.6-10.3) mg/dl Phosphorus (2.5-4.9) mg/dl Magnesium 1.3 L (1.7-2.4) mg/dl Iron (35-175) mcg/dl Transferrin (200-360) mg/dl Ferritin (8-388) ng/ml Total Bilirubin 0.7 (0.2-1.0) mg/dl AST 20 (13-39) U/L ALT 14 (7-52) U/L Alkaline Phosphatase 40 (34-104) U/L Total Protein 6.9 (6.0-8.3) gm/dl Albumin 3.8 (3.4-5.0) gm/dl Globulin 3.1 (2.5-4.0) gm/dl Albumin/Globulin Ratio 1.2 (0.9-2) Lipase 13 (11-82) U/L Vitamin B12 (180-914) pg/ml Folate (>5.38) ng/ml Urine Color Urine Appearance (Clear) Urine pH (4.5-7.5) Ur Specific [place] (1.000-1.030) Urine Protein (Negative) Urine Glucose (UA) (Negative) Urine Ketones (Negative) Urine Blood (Negative) Urine Nitrite (Negative) Urine Bilirubin (Negative) Urine Urobilinogen (Negative) Ur Leukocyte Esterase (Negative) Urine WBC (Auto) (0-5) /hpf Urine RBC (Auto) (0-4) /hpf U Hyaline Cast (Auto) (0-5) /lpf U Epithel Cells (Auto) (0-5) /lpf Urine Bacteria (Auto) (Negative) Ur Renal Epithelial Cell Urine Crystals Calcium Oxalate Crystal (None Prsent) SARS-CoV-2, RNA, NAAT (NEGATIVE) 10/01/22 10/01/22 10/02/22 Range/Units 19:13 19:18 00:49 WBC (4.8-10.8) K/ul RBC (4.70-6.10) M/uL Hgb (14.0-18.0) g/dl Hct (42.0-52.0) % MCV (80.0-100.0) fL MCH (25.0-34.0) pg MCHC (32.0-36.0) g/dL RDW Std Deviation (36.4-46.3) fL RDW Coeff of Jade (11.5-14.5) % Plt Count (130-400) K/uL MPV (9.4-12.4) fL Immature Gran % (Auto) % Neut % (Auto) % Lymph % (Auto) % [place] % (Auto) % Eos % (Auto) % Baso % (Auto) % Reticulocyte % (Auto) (0.5-2.0) % Neut # (Auto) (1.40-6.50) K/uL Lymph # (Auto) (1.2-3.4) K/uL [place] # (Auto) (0.11-0.59) K/uL Eos # (Auto) (0-0.50) K/uL Baso # (Auto) (0-0.2) K/uL Reticulocyte # (0.02-0.10) 10^6/uL Immature Gran # (Auto) (0.01-0.20) K/uL Sodium (136-145) mmol/L Potassium (3.5-5.1) mmol/L Chloride (98-107) mmol/L Carbon Dioxide (21-32) mmol/L Anion Gap (3-11) BUN (6-23) mg/dl Creatinine (0.6-1.4) mg/dl Est Cr Clr Drug Dosing ml/min Est GFR ( Amer) ml/min Est GFR (Non-Af Amer) ml/min BUN/Creatinine Ratio (10-20) Glucose (70-99(Fasting)) mg/dl POC Glucose 158 H (70-99) mg/dl Estimat Average Glucose mg/dl Hemoglobin A1c (4.5-5.6) % Calcium (8.6-10.3) mg/dl Phosphorus (2.5-4.9) mg/dl Magnesium (1.7-2.4) mg/dl Iron (35-175) mcg/dl Transferrin (200-360) mg/dl Ferritin (8-388) ng/ml Total Bilirubin (0.2-1.0) mg/dl AST (13-39) U/L ALT (7-52) U/L Alkaline Phosphatase (34-104) U/L Total Protein (6.0-8.3) gm/dl Albumin (3.4-5.0) gm/dl Globulin (2.5-4.0) gm/dl Albumin/Globulin Ratio (0.9-2) Lipase (11-82) U/L Vitamin B12 (180-914) pg/ml Folate (>5.38) ng/ml Urine Color Dark Yellow Urine Appearance Turbid A (Clear) Urine pH 5.0 (4.5-7.5) Ur Specific [place] 1.022 (1.000-1.030) Urine Protein Trace H (Negative) Urine Glucose (UA) Negative (Negative) Urine Ketones 1+ H (Negative) Urine Blood Negative (Negative) Urine Nitrite Negative (Negative) Urine Bilirubin 1+ H (Negative) Urine Urobilinogen Negative (Negative) Ur Leukocyte Esterase Trace H (Negative) Urine WBC (Auto) 1-5 (0-5) /hpf Urine RBC (Auto) 5-10 H (0-4) /hpf U Hyaline Cast (Auto) 1-5 (0-5) /lpf U Epithel Cells (Auto) >30 H (0-5) /lpf Urine Bacteria (Auto) 1+ H (Negative) Ur Renal Epithelial Cell Not Reportable Urine Crystals Not Reportable Calcium Oxalate Crystal Present A (None Prsent) SARS-CoV-2, RNA, NAAT NEGATIVE (NEGATIVE) 10/02/22 10/02/22 10/02/22 Range/Units 07:03 07:03 07:03 WBC 11.90 H (4.8-10.8) K/ul RBC 3.32 L (4.70-6.10) M/uL Hgb 10.9 L (14.0-18.0) g/dl Hct 31.2 L (42.0-52.0) % MCV 94.0 (80.0-100.0) fL MCH 32.8 (25.0-34.0) pg MCHC 34.9 (32.0-36.0) g/dL RDW Std Deviation 46.5 H (36.4-46.3) fL RDW Coeff of Jade 13.7 (11.5-14.5) % Plt Count 248 (130-400) K/uL MPV 10.6 (9.4-12.4) fL Immature Gran % (Auto) 0.7 % Neut % (Auto) 90.7 % Lymph % (Auto) 5.0 % [place] % (Auto) 3.5 % Eos % (Auto) 0.0 % Baso % (Auto) 0.1 % Reticulocyte % (Auto) 1.5 (0.5-2.0) % Neut # (Auto) 10.80 H (1.40-6.50) K/uL Lymph # (Auto) 0.59 L (1.2-3.4) K/uL [place] # (Auto) 0.42 (0.11-0.59) K/uL Eos # (Auto) 0.00 (0-0.50) K/uL Baso # (Auto) 0.01 (0-0.2) K/uL Reticulocyte # 0.05 (0.02-0.10) 10^6/uL Immature Gran # (Auto) 0.08 (0.01-0.20) K/uL Sodium 137 (136-145) mmol/L Potassium 4.0 (3.5-5.1) mmol/L Chloride 105 (98-107) mmol/L Carbon Dioxide 23 (21-32) mmol/L Anion Gap 9 (3-11) BUN 29 H (6-23) mg/dl Creatinine 1.98 H D (0.6-1.4) mg/dl Est Cr Clr Drug Dosing 62.7 ml/min Est GFR ( Amer) 42.5 ml/min Est GFR (Non-Af Amer) 36.7 ml/min BUN/Creatinine Ratio 14.6 (10-20) Glucose 173 H (70-99(Fasting)) mg/dl POC Glucose (70-99) mg/dl Estimat Average Glucose mg/dl Hemoglobin A1c (4.5-5.6) % Calcium 8.4 L (8.6-10.3) mg/dl Phosphorus (2.5-4.9) mg/dl Magnesium 1.9 (1.7-2.4) mg/dl Iron 10 L (35-175) mcg/dl Transferrin 191 L (200-360) mg/dl Ferritin 296.9 (8-388) ng/ml Total Bilirubin (0.2-1.0) mg/dl AST (13-39) U/L ALT (7-52) U/L Alkaline Phosphatase (34-104) U/L Total Protein (6.0-8.3) gm/dl Albumin (3.4-5.0) gm/dl Globulin (2.5-4.0) gm/dl Albumin/Globulin Ratio (0.9-2) Lipase (11-82) U/L Vitamin B12 142 L (180-914) pg/ml Folate 18.97 (>5.38) ng/ml Urine Color Urine Appearance (Clear) Urine pH (4.5-7.5) Ur Specific [place] (1.000-1.030) Urine Protein (Negative) Urine Glucose (UA) (Negative) Urine Ketones (Negative) Urine Blood (Negative) Urine Nitrite (Negative) Urine Bilirubin (Negative) Urine Urobilinogen (Negative) Ur Leukocyte Esterase (Negative) Urine WBC (Auto) (0-5) /hpf Urine RBC (Auto) (0-4) /hpf U Hyaline Cast (Auto) (0-5) /lpf U Epithel Cells (Auto) (0-5) /lpf Urine Bacteria (Auto) (Negative) Ur Renal Epithelial Cell Urine Crystals Calcium Oxalate Crystal (None Prsent) SARS-CoV-2, RNA, NAAT (NEGATIVE) 10/02/22 10/02/22 10/02/22 Range/Units 08:12 12:02 16:57 WBC (4.8-10.8) K/ul RBC (4.70-6.10) M/uL Hgb (14.0-18.0) g/dl Hct (42.0-52.0) % MCV (80.0-100.0) fL MCH (25.0-34.0) pg MCHC (32.0-36.0) g/dL RDW Std Deviation (36.4-46.3) fL RDW Coeff of Jade (11.5-14.5) % Plt Count (130-400) K/uL MPV (9.4-12.4) fL Immature Gran % (Auto) % Neut % (Auto) % Lymph % (Auto) % [place] % (Auto) % Eos % (Auto) % Baso % (Auto) % Reticulocyte % (Auto) (0.5-2.0) % Neut # (Auto) (1.40-6.50) K/uL Lymph # (Auto) (1.2-3.4) K/uL [place] # (Auto) (0.11-0.59) K/uL Eos # (Auto) (0-0.50) K/uL Baso # (Auto) (0-0.2) K/uL Reticulocyte # (0.02-0.10) 10^6/uL Immature Gran # (Auto) (0.01-0.20) K/uL Sodium (136-145) mmol/L Potassium (3.5-5.1) mmol/L Chloride (98-107) mmol/L Carbon Dioxide (21-32) mmol/L Anion Gap (3-11) BUN (6-23) mg/dl Creatinine (0.6-1.4) mg/dl Est Cr Clr Drug Dosing ml/min Est GFR ( Amer) ml/min Est GFR (Non-Af Amer) ml/min BUN/Creatinine Ratio (10-20) Glucose (70-99(Fasting)) mg/dl POC Glucose 157 H 124 H 100 H (70-99) mg/dl Estimat Average Glucose mg/dl Hemoglobin A1c (4.5-5.6) % Calcium (8.6-10.3) mg/dl Phosphorus (2.5-4.9) mg/dl Magnesium (1.7-2.4) mg/dl Iron (35-175) mcg/dl Transferrin (200-360) mg/dl Ferritin (8-388) ng/ml Total Bilirubin (0.2-1.0) mg/dl AST (13-39) U/L ALT (7-52) U/L Alkaline Phosphatase (34-104) U/L Total Protein (6.0-8.3) gm/dl Albumin (3.4-5.0) gm/dl Globulin (2.5-4.0) gm/dl Albumin/Globulin Ratio (0.9-2) Lipase (11-82) U/L Vitamin B12 (180-914) pg/ml Folate (>5.38) ng/ml Urine Color Urine Appearance (Clear) Urine pH (4.5-7.5) Ur Specific [place] (1.000-1.030) Urine Protein (Negative) Urine Glucose (UA) (Negative) Urine Ketones (Negative) Urine Blood (Negative) Urine Nitrite (Negative) Urine Bilirubin (Negative) Urine Urobilinogen (Negative) Ur Leukocyte Esterase (Negative) Urine WBC (Auto) (0-5) /hpf Urine RBC (Auto) (0-4) /hpf U Hyaline Cast (Auto) (0-5) /lpf U Epithel Cells (Auto) (0-5) /lpf Urine Bacteria (Auto) (Negative) Ur Renal Epithelial Cell Urine Crystals Calcium Oxalate Crystal (None Prsent) SARS-CoV-2, RNA, NAAT (NEGATIVE) 10/02/22 10/03/22 10/03/22 Range/Units 20:42 06:39 06:39 WBC 6.32 (4.8-10.8) K/ul RBC 3.11 L (4.70-6.10) M/uL Hgb 9.9 L (14.0-18.0) g/dl Hct 29.9 L (42.0-52.0) % MCV 96.1 (80.0-100.0) fL MCH 31.8 (25.0-34.0) pg MCHC 33.1 (32.0-36.0) g/dL RDW Std Deviation 48.7 H (36.4-46.3) fL RDW Coeff of Jade 13.7 (11.5-14.5) % Plt Count 270 (130-400) K/uL MPV 10.5 (9.4-12.4) fL Immature Gran % (Auto) 0.3 % Neut % (Auto) 71.0 % Lymph % (Auto) 21.8 % [place] % (Auto) 5.5 % Eos % (Auto) 0.9 % Baso % (Auto) 0.5 % Reticulocyte % (Auto) (0.5-2.0) % Neut # (Auto) 4.48 (1.40-6.50) K/uL Lymph # (Auto) 1.38 (1.2-3.4) K/uL [place] # (Auto) 0.35 (0.11-0.59) K/uL Eos # (Auto) 0.06 (0-0.50) K/uL Baso # (Auto) 0.03 (0-0.2) K/uL Reticulocyte # (0.02-0.10) 10^6/uL Immature Gran # (Auto) 0.02 (0.01-0.20) K/uL Sodium 138 (136-145) mmol/L Potassium 4.3 (3.5-5.1) mmol/L Chloride 108 H (98-107) mmol/L Carbon Dioxide 25 (21-32) mmol/L Anion Gap 5 (3-11) BUN 24 H (6-23) mg/dl Creatinine 1.63 H D (0.6-1.4) mg/dl Est Cr Clr Drug Dosing 76.2 ml/min Est GFR ( Amer) 53.8 ml/min Est GFR (Non-Af Amer) 46.4 ml/min BUN/Creatinine Ratio 14.7 (10-20) Glucose 104 H (70-99(Fasting)) mg/dl POC Glucose 144 H (70-99) mg/dl Estimat Average Glucose mg/dl Hemoglobin A1c (4.5-5.6) % Calcium 8.3 L (8.6-10.3) mg/dl Phosphorus (2.5-4.9) mg/dl Magnesium (1.7-2.4) mg/dl Iron (35-175) mcg/dl Transferrin (200-360) mg/dl Ferritin (8-388) ng/ml Total Bilirubin (0.2-1.0) mg/dl AST (13-39) U/L ALT (7-52) U/L Alkaline Phosphatase (34-104) U/L Total Protein (6.0-8.3) gm/dl Albumin (3.4-5.0) gm/dl Globulin (2.5-4.0) gm/dl Albumin/Globulin Ratio (0.9-2) Lipase (11-82) U/L Vitamin B12 (180-914) pg/ml Folate (>5.38) ng/ml Urine Color Urine Appearance (Clear) Urine pH (4.5-7.5) Ur Specific [place] (1.000-1.030) Urine Protein (Negative) Urine Glucose (UA) (Negative) Urine Ketones (Negative) Urine Blood (Negative) Urine Nitrite (Negative) Urine Bilirubin (Negative) Urine Urobilinogen (Negative) Ur Leukocyte Esterase (Negative) Urine WBC (Auto) (0-5) /hpf Urine RBC (Auto) (0-4) /hpf U Hyaline Cast (Auto) (0-5) /lpf U Epithel Cells (Auto) (0-5) /lpf Urine Bacteria (Auto) (Negative) Ur Renal Epithelial Cell Urine Crystals Calcium Oxalate Crystal (None Prsent) SARS-CoV-2, RNA, NAAT (NEGATIVE) 10/03/22 10/03/22 10/03/22 Range/Units 08:12 11:59 17:24 WBC (4.8-10.8) K/ul RBC (4.70-6.10) M/uL Hgb (14.0-18.0) g/dl Hct (42.0-52.0) % MCV (80.0-100.0) fL MCH (25.0-34.0) pg MCHC (32.0-36.0) g/dL RDW Std Deviation (36.4-46.3) fL RDW Coeff of Jade (11.5-14.5) % Plt Count (130-400) K/uL MPV (9.4-12.4) fL Immature Gran % (Auto) % Neut % (Auto) % Lymph % (Auto) % [place] % (Auto) % Eos % (Auto) % Baso % (Auto) % Reticulocyte % (Auto) (0.5-2.0) % Neut # (Auto) (1.40-6.50) K/uL Lymph # (Auto) (1.2-3.4) K/uL [place] # (Auto) (0.11-0.59) K/uL Eos # (Auto) (0-0.50) K/uL Baso # (Auto) (0-0.2) K/uL Reticulocyte # (0.02-0.10) 10^6/uL Immature Gran # (Auto) (0.01-0.20) K/uL Sodium (136-145) mmol/L Potassium (3.5-5.1) mmol/L Chloride (98-107) mmol/L Carbon Dioxide (21-32) mmol/L Anion Gap (3-11) BUN (6-23) mg/dl Creatinine (0.6-1.4) mg/dl Est Cr Clr Drug Dosing ml/min Est GFR ( Amer) ml/min Est GFR (Non-Af Amer) ml/min BUN/Creatinine Ratio (10-20) Glucose (70-99(Fasting)) mg/dl POC Glucose 105 H 106 H 82 (70-99) mg/dl Estimat Average Glucose mg/dl Hemoglobin A1c (4.5-5.6) % Calcium (8.6-10.3) mg/dl Phosphorus (2.5-4.9) mg/dl Magnesium (1.7-2.4) mg/dl Iron (35-175) mcg/dl Transferrin (200-360) mg/dl Ferritin (8-388) ng/ml Total Bilirubin (0.2-1.0) mg/dl AST (13-39) U/L ALT (7-52) U/L Alkaline Phosphatase (34-104) U/L Total Protein (6.0-8.3) gm/dl Albumin (3.4-5.0) gm/dl Globulin (2.5-4.0) gm/dl Albumin/Globulin Ratio (0.9-2) Lipase (11-82) U/L Vitamin B12 (180-914) pg/ml Folate (>5.38) ng/ml Urine Color Urine Appearance (Clear) Urine pH (4.5-7.5) Ur Specific [place] (1.000-1.030) Urine Protein (Negative) Urine Glucose (UA) (Negative) Urine Ketones (Negative) Urine Blood (Negative) Urine Nitrite (Negative) Urine Bilirubin (Negative) Urine Urobilinogen (Negative) Ur Leukocyte Esterase (Negative) Urine WBC (Auto) (0-5) /hpf Urine RBC (Auto) (0-4) /hpf U Hyaline Cast (Auto) (0-5) /lpf U Epithel Cells (Auto) (0-5) /lpf Urine Bacteria (Auto) (Negative) Ur Renal Epithelial Cell Urine Crystals Calcium Oxalate Crystal (None Prsent) SARS-CoV-2, RNA, NAAT (NEGATIVE) 10/03/22 10/04/22 10/04/22 Range/Units 20:45 08:03 08:19 WBC 3.90 L (4.8-10.8) K/ul RBC 2.99 L (4.70-6.10) M/uL Hgb 9.6 L (14.0-18.0) g/dl Hct 29.0 L (42.0-52.0) % MCV 97.0 (80.0-100.0) fL MCH 32.1 (25.0-34.0) pg MCHC 33.1 (32.0-36.0) g/dL RDW Std Deviation 48.5 H (36.4-46.3) fL RDW Coeff of Jade 13.5 (11.5-14.5) % Plt Count 267 (130-400) K/uL MPV 9.9 (9.4-12.4) fL Immature Gran % (Auto) % Neut % (Auto) % Lymph % (Auto) % [place] % (Auto) % Eos % (Auto) % Baso % (Auto) % Reticulocyte % (Auto) (0.5-2.0) % Neut # (Auto) (1.40-6.50) K/uL Lymph # (Auto) (1.2-3.4) K/uL [place] # (Auto) (0.11-0.59) K/uL Eos # (Auto) (0-0.50) K/uL Baso # (Auto) (0-0.2) K/uL Reticulocyte # (0.02-0.10) 10^6/uL Immature Gran # (Auto) (0.01-0.20) K/uL Sodium (136-145) mmol/L Potassium (3.5-5.1) mmol/L Chloride (98-107) mmol/L Carbon Dioxide (21-32) mmol/L Anion Gap (3-11) BUN (6-23) mg/dl Creatinine (0.6-1.4) mg/dl Est Cr Clr Drug Dosing ml/min Est GFR ( Amer) ml/min Est GFR (Non-Af Amer) ml/min BUN/Creatinine Ratio (10-20) Glucose (70-99(Fasting)) mg/dl POC Glucose 134 H 95 (70-99) mg/dl Estimat Average Glucose mg/dl Hemoglobin A1c (4.5-5.6) % Calcium (8.6-10.3) mg/dl Phosphorus (2.5-4.9) mg/dl Magnesium (1.7-2.4) mg/dl Iron (35-175) mcg/dl Transferrin (200-360) mg/dl Ferritin (8-388) ng/ml Total Bilirubin (0.2-1.0) mg/dl AST (13-39) U/L ALT (7-52) U/L Alkaline Phosphatase (34-104) U/L Total Protein (6.0-8.3) gm/dl Albumin (3.4-5.0) gm/dl Globulin (2.5-4.0) gm/dl Albumin/Globulin Ratio (0.9-2) Lipase (11-82) U/L Vitamin B12 (180-914) pg/ml Folate (>5.38) ng/ml Urine Color Urine Appearance (Clear) Urine pH (4.5-7.5) Ur Specific [place] (1.000-1.030) Urine Protein (Negative) Urine Glucose (UA) (Negative) Urine Ketones (Negative) Urine Blood (Negative) Urine Nitrite (Negative) Urine Bilirubin (Negative) Urine Urobilinogen (Negative) Ur Leukocyte Esterase (Negative) Urine WBC (Auto) (0-5) /hpf Urine RBC (Auto) (0-4) /hpf U Hyaline Cast (Auto) (0-5) /lpf U Epithel Cells (Auto) (0-5) /lpf Urine Bacteria (Auto) (Negative) Ur Renal Epithelial Cell Urine Crystals Calcium Oxalate Crystal (None Prsent) SARS-CoV-2, RNA, NAAT (NEGATIVE) 10/04/22 10/04/22 10/04/22 Range/Units 08:19 12:11 17:08 WBC (4.8-10.8) K/ul RBC (4.70-6.10) M/uL Hgb (14.0-18.0) g/dl Hct (42.0-52.0) % MCV (80.0-100.0) fL MCH (25.0-34.0) pg MCHC (32.0-36.0) g/dL RDW Std Deviation (36.4-46.3) fL RDW Coeff of Jade (11.5-14.5) % Plt Count (130-400) K/uL MPV (9.4-12.4) fL Immature Gran % (Auto) % Neut % (Auto) % Lymph % (Auto) % [place] % (Auto) % Eos % (Auto) % Baso % (Auto) % Reticulocyte % (Auto) (0.5-2.0) % Neut # (Auto) (1.40-6.50) K/uL Lymph # (Auto) (1.2-3.4) K/uL [place] # (Auto) (0.11-0.59) K/uL Eos # (Auto) (0-0.50) K/uL Baso # (Auto) (0-0.2) K/uL Reticulocyte # (0.02-0.10) 10^6/uL Immature Gran # (Auto) (0.01-0.20) K/uL Sodium 139 (136-145) mmol/L Potassium 4.1 (3.5-5.1) mmol/L Chloride 106 (98-107) mmol/L Carbon Dioxide 28 (21-32) mmol/L Anion Gap 5 (3-11) BUN 19 (6-23) mg/dl Creatinine 1.41 H (0.6-1.4) mg/dl Est Cr Clr Drug Dosing 88.0 ml/min Est GFR ( Amer) 64.1 ml/min Est GFR (Non-Af Amer) 55.3 ml/min BUN/Creatinine Ratio 13.5 (10-20) Glucose 97 (70-99(Fasting)) mg/dl POC Glucose 151 H 103 H (70-99) mg/dl Estimat Average Glucose mg/dl Hemoglobin A1c (4.5-5.6) % Calcium 8.8 (8.6-10.3) mg/dl Phosphorus 3.1 (2.5-4.9) mg/dl Magnesium 1.6 L (1.7-2.4) mg/dl Iron (35-175) mcg/dl Transferrin (200-360) mg/dl Ferritin (8-388) ng/ml Total Bilirubin (0.2-1.0) mg/dl AST (13-39) U/L ALT (7-52) U/L Alkaline Phosphatase (34-104) U/L Total Protein (6.0-8.3) gm/dl Albumin (3.4-5.0) gm/dl Globulin (2.5-4.0) gm/dl Albumin/Globulin Ratio (0.9-2) Lipase (11-82) U/L Vitamin B12 (180-914) pg/ml Folate (>5.38) ng/ml Urine Color Urine Appearance (Clear) Urine pH (4.5-7.5) Ur Specific [place] (1.000-1.030) Urine Protein (Negative) Urine Glucose (UA) (Negative) Urine Ketones (Negative) Urine Blood (Negative) Urine Nitrite (Negative) Urine Bilirubin (Negative) Urine Urobilinogen (Negative) Ur Leukocyte Esterase (Negative) Urine WBC (Auto) (0-5) /hpf Urine RBC (Auto) (0-4) /hpf U Hyaline Cast (Auto) (0-5) /lpf U Epithel Cells (Auto) (0-5) /lpf Urine Bacteria (Auto) (Negative) Ur Renal Epithelial Cell Urine Crystals Calcium Oxalate Crystal (None Prsent) SARS-CoV-2, RNA, NAAT (NEGATIVE) 10/04/22 Range/Units 20:52 WBC (4.8-10.8) K/ul RBC (4.70-6.10) M/uL Hgb (14.0-18.0) g/dl Hct (42.0-52.0) % MCV (80.0-100.0) fL MCH (25.0-34.0) pg MCHC (32.0-36.0) g/dL RDW Std Deviation (36.4-46.3) fL RDW Coeff of Jade (11.5-14.5) % Plt Count (130-400) K/uL MPV (9.4-12.4) fL Immature Gran % (Auto) % Neut % (Auto) % Lymph % (Auto) % [place] % (Auto) % Eos % (Auto) % Baso % (Auto) % Reticulocyte % (Auto) (0.5-2.0) % Neut # (Auto) (1.40-6.50) K/uL Lymph # (Auto) (1.2-3.4) K/uL [place] # (Auto) (0.11-0.59) K/uL Eos # (Auto) (0-0.50) K/uL Baso # (Auto) (0-0.2) K/uL Reticulocyte # (0.02-0.10) 10^6/uL Immature Gran # (Auto) (0.01-0.20) K/uL Sodium (136-145) mmol/L Potassium (3.5-5.1) mmol/L Chloride (98-107) mmol/L Carbon Dioxide (21-32) mmol/L Anion Gap (3-11) BUN (6-23) mg/dl Creatinine (0.6-1.4) mg/dl Est Cr Clr Drug Dosing ml/min Est GFR ( Amer) ml/min Est GFR (Non-Af Amer) ml/min BUN/Creatinine Ratio (10-20) Glucose (70-99(Fasting)) mg/dl POC Glucose 121 H (70-99) mg/dl Estimat Average Glucose mg/dl Hemoglobin A1c (4.5-5.6) % Calcium (8.6-10.3) mg/dl Phosphorus (2.5-4.9) mg/dl Magnesium (1.7-2.4) mg/dl Iron (35-175) mcg/dl Transferrin (200-360) mg/dl Ferritin (8-388) ng/ml Total Bilirubin (0.2-1.0) mg/dl AST (13-39) U/L ALT (7-52) U/L Alkaline Phosphatase (34-104) U/L Total Protein (6.0-8.3) gm/dl Albumin (3.4-5.0) gm/dl Globulin (2.5-4.0) gm/dl Albumin/Globulin Ratio (0.9-2) Lipase (11-82) U/L Vitamin B12 (180-914) pg/ml Folate (>5.38) ng/ml Urine Color Urine Appearance (Clear) Urine pH (4.5-7.5) Ur Specific [place] (1.000-1.030) Urine Protein (Negative) Urine Glucose (UA) (Negative) Urine Ketones (Negative) Urine Blood (Negative) Urine Nitrite (Negative) Urine Bilirubin (Negative) Urine Urobilinogen (Negative) Ur Leukocyte Esterase (Negative) Urine WBC (Auto) (0-5) /hpf Urine RBC (Auto) (0-4) /hpf U Hyaline Cast (Auto) (0-5) /lpf U Epithel Cells (Auto) (0-5) /lpf Urine Bacteria (Auto) (Negative) Ur Renal Epithelial Cell Urine Crystals Calcium Oxalate Crystal (None Prsent) SARS-CoV-2, RNA, NAAT (NEGATIVE) Administered Medications Discontinued Medications Amlodipine Besylate (Amlodipine Besylate 5 Mg Tab) 5 mg PO DAILY [facility] Stop: 11/01/22 08:59 Last Admin: 10/05/22 08:45 Dose: 5 mg Documented By: Admin: 10/04/22 09:59 Dose: 5 mg Documented By: Admin: 10/03/22 09:21 Dose: 5 mg Documented By: Admin: 10/02/22 08:08 Dose: 5 mg Documented By: KWAME Bupivacaine HCl/Epinephrine Bitart (Bupivacaine/Epinephrine 0.5% Mpf 1:200,000 30 Ml Vial) Confirm Administered Dose 30 ml .ROUTE .[facility] Stop: 10/01/22 21:19 Last Admin: 10/01/22 23:13 Dose: 24 ml Documented By: BARBARA Cyanocobalamin (Cyanocobalamin (B-12) 500 Mcg Tablet) 500 mcg PO QAM [facility] Stop: 11/01/22 09:59 Last Admin: 10/03/22 09:21 Dose: 500 mcg Documented By: Admin: 10/02/22 11:03 Dose: 500 mcg Documented By: TN Cyanocobalamin (Cyanocobalamin (B-12) 500 Mcg Tablet) 1,000 mcg PO QAM [facility] Stop: 11/03/22 08:59 Last Admin: 10/05/22 08:45 Dose: 1,000 mcg Documented By: Admin: 10/04/22 09:59 Dose: 1,000 mcg Documented By: TAYA Escitalopram Oxalate (Escitalopram Oxalate 20 Mg Tab) 20 mg PO DAILY [facility] Stop: 11/01/22 08:59 Last Admin: 10/05/22 10:18 Dose: 20 mg Documented By: Admin: 10/04/22 09:59 Dose: 20 mg Documented By: Admin: 10/03/22 09:21 Dose: 20 mg Documented By: Admin: 10/02/22 08:08 Dose: 20 mg Documented By: TN Fenofibrate (Fenofibrate Nanocrystallized 145 Mg Tablet) 145 mg PO DAILY [facility] Stop: 11/01/22 08:59 Last Admin: 10/05/22 08:46 Dose: 145 mg Documented By: Admin: 10/04/22 09:59 Dose: 145 mg Documented By: Admin: 10/03/22 09:21 Dose: 145 mg Documented By: Admin: 10/02/22 08:09 Dose: 145 mg Documented By: TN Fentanyl Citrate (Fentanyl Citrate Pf 100 Mcg/2 Ml Vial) 50 mcg IV NOW STA Stop: 10/01/22 18:46 Last Admin: 10/01/22 19:03 Dose: 50 mcg Documented By: FLAVIO Ferrous Sulfate (Ferrous Sulfate 325 Mg Tab) 325 mg PO QAM [facility] Stop: 11/04/22 08:59 Last Admin: 10/05/22 08:47 Dose: 325 mg Documented By: DU Fluticasone/Vilanterol (Fluticasone/Vilanterol 200/25mcg 14 Puffs/Inhaler) 1 puffs INH DAILY [facility] Stop: 11/01/22 08:59 Last Admin: 10/05/22 08:55 Dose: 1 puffs Documented By: Admin: 10/04/22 09:58 Dose: 1 puffs Documented By: Admin: 10/03/22 09:22 Dose: 1 puffs Documented By: Admin: 10/02/22 08:09 Dose: 1 puffs Documented By: TN Folic Acid (Folic Acid 1 Mg Tab) 1 mg PO DAILY [facility] Stop: 11/01/22 08:59 Last Admin: 10/05/22 08:47 Dose: 1 mg Documented By: Admin: 10/04/22 09:59 Dose: 1 mg Documented By: Admin: 10/03/22 09:21 Dose: 1 mg Documented By: Admin: 10/02/22 08:09 Dose: 1 mg Documented By: TN Gabapentin (Gabapentin 100 Mg Cap) 100 mg PO TID [facility] Stop: 11/01/22 08:59 Last Admin: 10/05/22 13:47 Dose: 100 mg Documented By: Admin: 10/05/22 08:48 Dose: 100 mg Documented By: Admin: 10/04/22 21:59 Dose: 100 mg Documented By: Admin: 10/04/22 14:50 Dose: 100 mg Documented By: Admin: 10/04/22 09:59 Dose: 100 mg Documented By: Admin: 10/03/22 21:01 Dose: 100 mg Documented By: Admin: 10/03/22 13:23 Dose: 100 mg Documented By: Admin: 10/03/22 09:21 Dose: 100 mg Documented By: Admin: 10/02/22 21:28 Dose: 100 mg Documented By: Admin: 10/02/22 13:15 Dose: 100 mg Documented By: Admin: 10/02/22 08:07 Dose: 100 mg Documented By: KWAME Gemfibrozil (Gemfibrozil 600 Mg Tab) 600 mg PO BID [facility] Stop: 11/01/22 08:59 Last Admin: 10/05/22 08:48 Dose: 600 mg Documented By: Admin: 10/04/22 21:57 Dose: 600 mg Documented By: Admin: 10/04/22 09:59 Dose: 600 mg Documented By: Admin: 10/03/22 21:03 Dose: 600 mg Documented By: Admin: 10/03/22 09:22 Dose: 600 mg Documented By: Admin: 10/02/22 21:27 Dose: 600 mg Documented By: Admin: 10/02/22 08:07 Dose: 600 mg Documented By: TN Heparin Sodium (Porcine) (Heparin Sod 5,000 Unit/0.5 Ml Vial) 5,000 units SQ Q8 [facility] Stop: 11/01/22 05:59 Last Admin: 10/05/22 13:50 Dose: 5,000 units Documented By: Admin: 10/05/22 05:41 Dose: 5,000 units Documented By: Admin: 10/04/22 22:01 Dose: 5,000 units Documented By: Admin: 10/04/22 14:49 Dose: 5,000 units Documented By: Admin: 10/04/22 05:22 Dose: 5,000 units Documented By: Admin: 10/03/22 21:02 Dose: 5,000 units Documented By: Admin: 10/03/22 13:23 Dose: 5,000 units Documented By: Admin: 10/03/22 05:51 Dose: 5,000 units Documented By: Admin: 10/02/22 21:28 Dose: 5,000 units Documented By: Admin: 10/02/22 13:17 Dose: 5,000 units Documented By: Admin: 10/02/22 05:30 Dose: 5,000 units Documented By: JAZMYN Sodium Chloride (Nss 1000ml) 1,000 mls @ 999 mls/hr IV .Q1H1M STA Stop: 10/01/22 19:44 Last Infusion: 10/01/22 20:10 Dose: 0 mls/hr Documented By: Admin: 10/01/22 19:04 Dose: 999 mls/hr Documented By: FLAVIO Acetaminophen (Ofirmev) 1,000 mg in 100 mls @ 400 mls/hr IV NOW STA Stop: 10/01/22 18:58 Last Infusion: 10/01/22 19:20 Dose: 0 mls/hr Documented By: Admin: 10/01/22 19:03 Dose: 400 mls/hr Documented By: ROSITAN Sodium Chloride (Nss 1000ml) 1,000 mls @ 999 mls/hr IV .Q1H1M ONE Stop: 10/01/22 21:19 Last Infusion: 10/02/22 00:52 Dose: 0 mls/hr Documented By: Admin: 10/01/22 20:45 Dose: 999 mls/hr Documented By: FLAVIO Piperacillin Sod/Tazobactam Sod (Zosyn) 4.5 gm in 120 mls @ 240 mls/hr IV NOW ONE Stop: 10/01/22 20:48 Last Infusion: 10/02/22 00:51 Dose: 0 mls/hr Documented By: Admin: 10/01/22 20:45 Dose: 240 mls/hr Documented By: FLAVIO Sodium Chloride (Nss 1000ml) 1,000 mls @ 200 mls/hr IV .Q5H ONE Stop: 10/02/22 05:17 Last Infusion: 10/02/22 09:48 Dose: 0 mls/hr Documented By: Admin: 10/02/22 01:15 Dose: 200 mls/hr Documented By: JAZMYN Sodium Chloride (Nss 1000ml) 1,000 mls @ 100 mls/hr IV .Q10H [facility] Stop: 11/01/22 00:43 Last Admin: 10/02/22 00:53 Dose: Not Given Documented By: TMD Piperacillin Sod/Tazobactam (Sod 4.5 gm/ Dextrose) 120 mls @ 30 mls/hr IV Q8H [facility]; Protocol Stop: 10/12/22 03:59 Last Infusion: 10/05/22 16:27 Dose: 30 mls/hr Documented By: [id number] Admin: 10/05/22 12:17 Dose: 30 mls/hr Documented By: Infusion: 10/05/22 09:21 Dose: 0 mls/hr Documented By: Admin: 10/05/22 05:11 Dose: 30 mls/hr Documented By: Infusion: 10/04/22 23:21 Dose: 0 mls/hr Documented By: Admin: 10/04/22 19:21 Dose: 30 mls/hr Documented By: Infusion: 10/04/22 16:47 Dose: 0 mls/hr Documented By: Admin: 10/04/22 12:47 Dose: 30 mls/hr Documented By: Infusion: 10/04/22 10:01 Dose: 0 mls/hr Documented By: Admin: 10/04/22 05:18 Dose: 30 mls/hr Documented By: Infusion: 10/03/22 23:45 Dose: 0 mls/hr Documented By: Admin: 10/03/22 19:42 Dose: 30 mls/hr Documented By: Infusion: 10/03/22 16:37 Dose: 0 mls/hr Documented By: Admin: 10/03/22 12:24 Dose: 30 mls/hr Documented By: Infusion: 10/03/22 07:29 Dose: 0 mls/hr Documented By: Admin: 10/03/22 03:20 Dose: 30 mls/hr Documented By: Infusion: 10/02/22 23:51 Dose: 0 mls/hr Documented By: Admin: 10/02/22 19:51 Dose: 30 mls/hr Documented By: Infusion: 10/02/22 15:40 Dose: 0 mls/hr Documented By: Admin: 10/02/22 11:37 Dose: 30 mls/hr Documented By: Infusion: 10/02/22 08:45 Dose: 0 mls/hr Documented By: Admin: 10/02/22 04:39 Dose: 30 mls/hr Documented By: TMD Sodium Chloride (Nss 1000ml) 1,000 mls @ 100 mls/hr IV .Q10H [facility] Stop: 11/01/22 04:59 Last Infusion: 10/02/22 22:20 Dose: 0 mls/hr Documented By: Admin: 10/02/22 20:33 Dose: Not Given Documented By: Admin: 10/02/22 10:51 Dose: 100 mls/hr Documented By: TN Magnesium Sulfate/Dextrose (Magnesium Sulfate / D5w) 1 gm in 100 mls @ 50 mls/hr IV Q2H [facility] Stop: 10/02/22 07:59 Last Infusion: 10/02/22 08:35 Dose: 0 mls/hr Documented By: Admin: 10/02/22 06:35 Dose: 50 mls/hr Documented By: Infusion: 10/02/22 06:35 Dose: 50 mls/hr Documented By: Admin: 10/02/22 04:37 Dose: 50 mls/hr Documented By: Infusion: 10/02/22 04:37 Dose: 0 mls/hr Documented By: Admin: 10/02/22 02:54 Dose: 50 mls/hr Documented By: TMD Sodium Chloride (Nss 1000ml) 1,000 mls @ 100 mls/hr IV .Q10H ONE Stop: 10/03/22 05:16 Last Infusion: 10/03/22 05:57 Dose: 0 mls/hr Documented By: Admin: 10/02/22 19:51 Dose: 100 mls/hr Documented By: EM Magnesium Sulfate/Dextrose (Magnesium Sulfate / D5w) 1 gm in 100 mls @ 50 mls/hr IV Q2H [facility] Stop: 10/04/22 17:59 Last Infusion: 10/04/22 18:34 Dose: 0 mls/hr Documented By: Admin: 10/04/22 16:22 Dose: 50 mls/hr Documented By: Infusion: 10/04/22 16:22 Dose: 50 mls/hr Documented By: Admin: 10/04/22 14:51 Dose: 50 mls/hr Documented By: TAYA Insulin Aspart (Insulin Aspart Per Unit Charge) 0 units SC ACHS [facility] Stop: 11/01/22 00:19 Last Admin: 10/05/22 09:15 Dose: 3 units Documented By: DU Co-signed By: KWAME Admin: 10/04/22 21:00 Dose: Not Given Documented By: ZION Co-signed By: Admin: 10/04/22 17:53 Dose: 2 units Documented By: TAYA Co-signed By: FABIOLA Admin: 10/04/22 13:35 Dose: 6 units Documented By: TAYA Co-signed By: PHILLY Admin: 10/04/22 08:57 Dose: Not Given Documented By: Admin: 10/03/22 21:03 Dose: Not Given Documented By: Admin: 10/03/22 17:30 Dose: Not Given Documented By: Admin: 10/03/22 13:17 Dose: 2 units Documented By: TAYA Co-signed By: PHILLY Admin: 10/03/22 09:29 Dose: Not Given Documented By: Admin: 10/02/22 21:26 Dose: 1 units Documented By: PAOLO Co-signed By: HANNAH Admin: 10/02/22 18:41 Dose: 1 units Documented By: ANTONIO Co-signed By: PHILLY Admin: 10/02/22 13:05 Dose: 2 units Documented By: KWAME Co-signed By: ANTONIO Admin: 10/02/22 09:14 Dose: 3 units Documented By: KWAME Co-signed By: DU Admin: 10/02/22 01:15 Dose: 1 units Documented By: TMD Co-signed By: SG Insulin Aspart (Insulin Aspart Per Unit Charge) 0 units SC ACHS [facility] Stop: 11/04/22 11:29 Last Admin: 10/05/22 16:57 Dose: 2 units Documented By: [id number] Co-signed By: ORALIA Admin: 10/05/22 13:44 Dose: 2 units Documented By: AG Co-signed By: [id number] Lactobacillus Acidophilus (Advanced Probiotic 1250 Mg Capsule) 2 cap PO DAILY [facility] Stop: 11/03/22 08:59 Last Admin: 10/05/22 08:48 Dose: 2 cap Documented By: Admin: 10/04/22 09:59 Dose: 2 cap Documented By: TAYA Levothyroxine Sodium (Levothyroxine Sodium 25 Mcg Tablet) 25 mcg PO DAILYBB [facility] Stop: 11/01/22 06:29 Last Admin: 10/05/22 05:41 Dose: 25 mcg Documented By: Admin: 10/04/22 05:22 Dose: 25 mcg Documented By: Admin: 10/03/22 05:51 Dose: 25 mcg Documented By: Admin: 10/02/22 05:32 Dose: 25 mcg Documented By: JAZMYN Metoprolol Tartrate (Metoprolol Tartrate 50 Mg Tab) 50 mg PO BID [facility] Stop: 11/01/22 08:59 Last Admin: 10/05/22 08:49 Dose: 50 mg Documented By: Admin: 10/04/22 21:58 Dose: 50 mg Documented By: Admin: 10/04/22 09:59 Dose: 50 mg Documented By: Admin: 10/03/22 21:01 Dose: 50 mg Documented By: Admin: 10/03/22 09:21 Dose: 50 mg Documented By: Admin: 10/02/22 21:26 Dose: 50 mg Documented By: Admin: 10/02/22 08:28 Dose: 50 mg Documented By: KWAME Olanzapine (Olanzapine 10 Mg Tab) 10 mg PO HS [facility] Stop: 11/01/22 20:59 Last Admin: 10/04/22 21:58 Dose: 10 mg Documented By: Admin: 10/03/22 21:02 Dose: 10 mg Documented By: Admin: 10/02/22 21:27 Dose: 10 mg Documented By: EM Ondansetron HCl (Ondansetron Inj 2 Mg/Ml 2 Ml Vial) 4 mg IV NOW STA Stop: 10/01/22 18:46 Last Admin: 10/01/22 19:03 Dose: 4 mg Documented By: BCN Oxycodone/Acetaminophen (Oxycodone/Acetaminophen 5mg/325mg Tab) 1 tab PO Q4H PRN PRN Reason: MODERATE Pain (4,5,6) & Pre PT Stop: 10/16/22 00:43 Last Admin: 03/25/23 03:23 Dose: 1 tab Documented By: Admin: 10/02/22 08:22 Dose: 1 tab Documented By: KWAME Pantoprazole Sodium (Pantoprazole 40 Mg Tab) 40 mg PO DAILY [facility] Stop: 11/01/22 08:59 Last Admin: 10/05/22 08:49 Dose: 40 mg Documented By: Admin: 10/04/22 09:59 Dose: 40 mg Documented By: Admin: 10/03/22 09:21 Dose: 40 mg Documented By: Admin: 10/02/22 08:08 Dose: 40 mg Documented By: TN Trazodone HCl (Trazodone Hcl 100 Mg Tab) 100 mg PO HS [facility] Stop: 11/01/22 20:59 Last Admin: 10/04/22 21:57 Dose: 100 mg Documented By: Admin: 10/03/22 21:02 Dose: 100 mg Documented By: Admin: 10/02/22 21:26 Dose: 100 mg Documented By: EM Imaging Data Radiologist's Impression: Abdomen/Pelvis CT 10/01/22 18:44 CR Exam(s): CT ABDOMEN + PELVIS Without Contrast EXAM: CT Abdomen and Pelvis Without Intravenous Contrast CLINICAL HISTORY: Reason for exam: RLQ abd pain, appy. TECHNIQUE: Axial computed tomography images of the abdomen and pelvis without intravenous contrast. CTDI is 28.91 mGy and DLP is 1593.32 mGy-cm. Automated exposure control was utilized for the study. A dose lowering technique was utilized adhering to the principles of ALARA. COMPARISON: None FINDINGS: Lung bases: Unremarkable. No mass. No consolidation. ABDOMEN: Liver: Hepatomegaly. Gallbladder and bile ducts: Contracted gallbladder. No calcified stones. No ductal dilation. Pancreas: Unremarkable. No ductal dilation. Spleen: Unremarkable. No splenomegaly. Adrenals: Unremarkable. No mass. Kidneys and ureters: Nonspecific bilateral perinephric fat stranding. No hydronephrosis or stone. Stomach and bowel: Evaluation of the stomach is limited by under distention. Inflammatory change of the cecum may represent reactive inflammation. No mucosal thickening. No bowel obstruction. PELVIS: Appendix: Enlarged, inflamed appendix measuring approximately 1.5 cm in diameter, compatible with acute appendicitis. Fluid and fat stranding in the right lower quadrant may represent appendix microperforation. No fluid collection or free air. Bladder: Mild prominence of the bladder wall is nonspecific. Please correlate with urinalysis if concerned for cystitis. No stones. Reproductive: Unremarkable as visualized. ABDOMEN and PELVIS: Intraperitoneal space: See above. Bones/joints: Degenerative changes of the spine. No acute fracture. No dislocation. Soft tissues: Small fat-containing umbilical hernia. Vasculature: Phleboliths in the pelvis. No abdominal aortic aneurysm. Lymph nodes: Unremarkable. No enlarged lymph nodes. IMPRESSION: 1. Enlarged, inflamed appendix measuring approximately 1.5 cm in diameter, compatible with acute appendicitis. Fluid and fat stranding in the right lower quadrant may represent appendix microperforation. No fluid collection or free air. 2. Mild prominence of the bladder wall is nonspecific. Please correlate with urinalysis if concerned for cystitis. 3. Hepatomegaly. Communications: Call Doctor Appendicitis Electronically signed by: Nicole Eastman M.D. 10/01/22 20:17 PM Chest X-Ray 10/01/22 23:42 XR chest 1V portable CLINICAL HISTORY: Renal failure. COMPARISON STUDY: Chest radiograph February 23, 2019. FINDINGS: Lung volumes are mildly diminished. There is no pneumothorax or pleural effusion is no evidence for pulmonary edema. Mild right infrahilar opacity and possible retrocardiac opacity. Prominent bilateral perihilar markings are noted. IMPRESSION: 1. Suspected bibasilar opacities which could reflect atelectasis or consolidation. Low lung volumes. 2. No evidence for pulmonary edema. ACT 112: Negative or not required by law. Electronically signed by: Clyde Corley M.D. 10/02/2022 6:51 AM Discharge Plan Visit Data Chief Complaint: Abdominal Pain Stated Complaint: ABDOMINAL PAIN X2 DAYS ED Provider: Orquidea Vo Discharge Problem: Acute appendicitis with localized peritonitis, Acute kidney injury Patient Disposition: Admitted As Inpatient Discharge Instructions Interventions: ED Discharge Assessment Last Done: 10/01/22 21:11
--- NOTE | 2022-10-03 05:00 | Surgery Progress Note ---
Date of Service October 03, 2022 Assessment & Plan (1) Acute appendicitis with localized peritonitis: Plan: Status post laparoscopic appendectomy on 10/01/2022 (postop day #2) Continue clear liquids until improvement of bowel function and appetite has improved Continue analgesics Continue antiemetics Continue SATISH drain to bulb suction Continue antibiotics in the form of Zosyn Encourage use of incentive spirometry Increase ambulation as able Check a.m. labs when available Subcutaneous heparin is in place for DVT prevention Admission and Anticipated Discharge Date Admission Date: October 01, 2022 Supervising Physician Co-Signing Physician Notes pnt S&E, agree with above. s/p lap appy for perf. doing well, pain improving. abd soft, appropriately ttp. satish ss. some ecchymosis llq incision. cont clears, may advance today or tomorrow if improvement in bowel function. cont iv abx. Subjective Patient is resting comfortably in bed. He notes that he is tolerating liquids without worsening abdominal pain. He has not had a bowel movement since surgery but is passing flatus. He does note some generalized abdominal pain. He denies any nausea or vomiting. No shortness of breath noted. Physical Exam Gastrointestinal (Abdomen): Abdomen is soft with minimal distention. Patient has appropriate pain near surgical incisions. Incisions are clean, dry, intact. SATISH drain is draining serous fluid and has drained approximate 150 cc over the past 24 hours. Results & Data Vital Signs (Past 12 Hours) Vital Signs Temp Pulse Resp BP Pulse Ox O2 Del Method 10/03/22 00:14 36.7 C 79 16 128/78 92 Room Air 10/02/22 19:45 Room Air 10/02/22 19:57 37.2 C 97 H 18 115/70 94 Room Air PG Care Time/CCT Total # of Minutes Spent Total Time Spent with Patient: Total time spent is greater than 50% in coordination of care (as documented) at patient's floor/unit and/or counseling patient: Coding Level of Care Code 17234 Post Operative Follow-Up Diagnoses Acute appendicitis with localized peritonitis K35.30
[2022-10-03] MEDS: HEPARIN SOD 5,000 UNIT/0.5 ML VIAL SQ SCH ×3 (05:51→21:02)
[2022-10-03] MEDS: LEVOTHYROXINE SODIUM 25 MCG TABLET PO SCH (05:51)
[2022-10-03 07:44] LABS: Basophils # (auto) 0.03 K/uL (0-0.2); Basophils % (auto) 0.5 %; Eosinophils # (auto) 0.06 K/uL (0-0.50); Eosinophils % (auto) 0.9 %; Hematocrit (blood only) 29.9 % (42.0-52.0); Hemoglobin 9.9 g/dl (14.0-18.0); Immature Granulocytes # (auto) 0.02 K/uL (0.01-0.20); Immature Granulocytes % (auto) 0.3 %; Lymphocytes # (auto) 1.38 K/uL (1.2-3.4); Lymphocytes % (auto) 21.8 %; Mean Corpuscular Hemoglobin 31.8 pg (25.0-34.0); Mean Corpuscular Hgb Conc 33.1 g/dL (32.0-36.0); Mean Corpuscular Volume 96.1 fL (80.0-100.0); Mean Platelet Volume 10.5 fL (9.4-12.4); Monocytes # (auto) 0.35 K/uL (0.11-0.59); Monocytes % (auto) 5.5 %; Neutrophils # (auto) 4.48 K/uL (1.40-6.50); Platelet Count 270 K/uL (130-400); RDW Coefficient of Variation 13.7 % (11.5-14.5); RDW Standard Deviation 48.7 fL (36.4-46.3); Red Blood Count 3.11 M/uL (4.70-6.10); White Blood Count 6.32 K/ul (4.8-10.8)
[2022-10-03 08:02] LABS: BUN Creatinine Ratio 14.7 (10-20); Calcium 8.3 mg/dl (8.6-10.3); Creatinine Clr Calc Pharmacy 76.2 ml/min; Est GFR (African American) 53.8 ml/min; Est GFR (Non-African American) 46.4 ml/min; Potassium 4.3 mmol/L (3.5-5.1)
[2022-10-03] MEDS: PANTOprazole 40 MG TAB PO SCH (09:21)
[2022-10-03] MEDS: CYANOCOBALAMIN (B-12) 500 MCG TABLET PO SCH (09:21)
[2022-10-03] MEDS: ESCITALOPRAM OXALATE 20 MG TAB PO SCH (09:21)
[2022-10-03] MEDS: FOLIC ACID 1 MG TAB PO SCH (09:21)
[2022-10-03] MEDS: GABAPENTIN 100 MG CAP PO SCH ×3 (09:21→21:01)
[2022-10-03] MEDS: METOPROLOL TARTRATE 50 MG TAB PO SCH ×2 (09:21→21:01)
[2022-10-03] MEDS: FENOFIBRATE NANOCRYSTALLIZED 145 MG TABLET PO SCH (09:21)
[2022-10-03] MEDS: amLODIPine BESYLATE 5 MG TAB PO SCH (09:21)
[2022-10-03] MEDS: FLUTICASONE/VILANTEROL 200/25MCG 14 PUFFS/INHALER INH SCH (09:22)
[2022-10-03] MEDS: gemfibroziL 600 MG TAB PO SCH ×2 (09:22→21:03)
[2022-10-03] MEDS: INSULIN ASPART PER UNIT CHARGE SC SCH ×4 (09:29→21:03)
--- NOTE | 2022-10-03 14:14 | Hospitalist Progress Note ---
Date of Service October 03, 2022 Assessment & Plan (1) Acute appendicitis with localized peritonitis: (2) Sepsis: (3) CARLOS (acute kidney injury): (4) HTN (hypertension): (5) Schizophrenia: (6) Asthma: (7) CARYN (obstructive sleep apnea): (8) Morbid obesity: (9) Hyperlipidemia: (10) Hypothyroidism: Plan Sepsis 2/[address] abd/pelvis with enlarged, inflamed appendix measuring approximately 1.5 cm in diameter, compatible with acute appendicitis. Fluid and fat stranding in the right lower quadrant may represent appendix microperforation status post laparoscopic appendectomy by Dr. Jules on 10/01/2022 Monitor H/H - stable hgb 10.9 post op (pre-op 10.9) Patient tolerating clears, has some operative site soreness with changing position, is moving gas, has not moved bowel. Currently on Zosyn since 10/02, can de-escalate to Unasyn with a plan to use Augmentin on discharge. Encourage OOB to chair and ambulate. Will add probiotic. Pain Mx. CARLOS on CKD - Cr 3.15 on admission (baseline mid-high 1s). S/P ivf. Resolved. Chronic anemia: Baseline Hb around 10. MCV around 95. B12 - 142. Iron profile s/o Iron deficiency. c/w cyanocobalamin 1000 mcg daily; add iron supplement once able to tolerate more solid food. c/w home folic acid. Monitor - CBC and Vit B12 level in 4-8 weeks then in 6 months, then annually. coordinate w/ pcp office. HTN - stable, continue home medications as able. DM II - insulin requiring, well-controlled as of recent hemoglobin A1c of 5.3 last May 2022 Hypothyroidism- continue levothyroxine OHS on CPAP/asthma, stable lung status History traumatic brain injury Paranoid schizophrenia/mood/anxiety disorder -at baseline DVT Ppx and DC: per primary service; on heparin sc. Admission and Anticipated Discharge Date Admission Date: October 01, 2022 Subjective Patient seen and examined at bedside as a follow-up of sepsis secondary to perforated appendicitis status post laparoscopic appendectomy and CARLOS over CKD. Patient was sitting up in chair, on room air, NAD, reports no new acute event overnight, is tolerating liquid diet, reports some abdominal soreness at operative site with movement/standing position but under control. The patient has normal bowel but is moving gas. Denies any nausea or vomiting or shortness of breath or chest pain or palpitation or headache or dizziness. Physical Exam Physical Exam: GENERAL: Alert and oriented x3. NAD, on RA. Obese class III. HEENT: No pallor, no icterus. Pupils equal, round and reactive to light. Oral mucosa moist. NECK: No JVD, no neck masses. HEART: S1 and S2 heard. Regular rate and rhythm. No murmur, no gallop. RESPIRATORY SYSTEM: Normal AP diameter. No accessory muscle use. No wheezing, no crackles. ABDOMEN: Soft, bowel sounds present, no distention. Right abdomen with dressing (over lap incision) with some soakage, AMARIS drain with scant collection noted. CENTRAL NERVOUS SYSTEM: No facial droop. Speech is clear. Obeys simple commands. Moves extremities. EXTREMITIES: No edema, no erythema seen. Results & Data Results & Data Vital Signs (Past 12 Hours) Vital Signs Temp Pulse Resp BP Pulse Ox O2 Del Method 10/03/22 07:22 36.8 C 75 14 108/66 94 Room Air
[2022-10-03] MEDS: OLANZapine 10 MG TAB PO SCH (21:02)
[2022-10-03] MEDS: traZODone HCL 100 MG TAB PO SCH (21:02)
--- NOTE | 2022-10-04 04:57 | Surgery Progress Note ---
Date of Service October 04, 2022 Assessment & Plan (1) Acute appendicitis with localized peritonitis: Plan: Status post laparoscopic appendectomy on 10/01/2022 (postop day #3) Continue full liquids with consideration of advancing to solid food if bowel function remains stable Continue analgesics Continue antiemetics Continue AMARIS drain to bulb suction Continue antibiotics in the form of Zosyn Encourage use of incentive spirometry Increase ambulation as able Check a.m. labs when available Subcutaneous heparin is in place for DVT prevention Admission and Anticipated Discharge Date Admission Date: October 01, 2022 Supervising Physician Co-Signing Physician Notes Patient seen and examined, agree with above. Status post laparoscopic appendectomy for perforated appendicitis. Positive BM yesterday. Tolerated fulls. Advance diet, continue IV antibiotics. Subjective Patient is resting comfortably in bed. He notes that over the past 24 hours he has had a bowel movement. He feels as though his pain is well controlled. He is tolerating full liquids without any nausea or vomiting and also denies any worsening abdominal pain. Physical Exam Gastrointestinal (Abdomen): Abdomen is rotund but soft. There is no rebound tenderness or guarding. Patient has appropriate pain near surgical incisions which are clean, dry, and intact. AMARIS drain is in place with small amount of serous drainage. Results & Data Vital Signs (Past 12 Hours) Vital Signs Temp Pulse Resp BP Pulse Ox O2 Del Method 10/03/22 20:15 Room Air 10/03/22 21:20 36.7 C 97 H 18 124/76 92 Room Air 10/03/22 21:07 37.1 C 96 H 16 162/77 H 96 Room Air PG Care Time/CCT Total # of Minutes Spent Total Time Spent with Patient: Total time spent is greater than 50% in coordination of care (as documented) at patient's floor/unit and/or counseling patient: Coding Level of Care Code 25579 Post Operative Follow-Up Diagnoses Acute appendicitis with localized peritonitis K35.30
[2022-10-04] MEDS: PIPERACILLIN/TAZOBACTAM 4.5 GM in DEXTROSE 5% 100 ML IV SCH ×3 (05:18→19:21)
[2022-10-04] MEDS: HEPARIN SOD 5,000 UNIT/0.5 ML VIAL SQ SCH ×3 (05:22→22:01)
[2022-10-04] MEDS: LEVOTHYROXINE SODIUM 25 MCG TABLET PO SCH (05:22)
[2022-10-04 08:49] LABS: Hemoglobin 9.6 g/dl (14.0-18.0); Mean Corpuscular Hemoglobin 32.1 pg (25.0-34.0); Mean Corpuscular Hgb Conc 33.1 g/dL (32.0-36.0); Mean Platelet Volume 9.9 fL (9.4-12.4); Platelet Count 267 K/uL (130-400); RDW Coefficient of Variation 13.5 % (11.5-14.5); RDW Standard Deviation 48.5 fL (36.4-46.3); Red Blood Count 2.99 M/uL (4.70-6.10)
[2022-10-04] MEDS: INSULIN ASPART PER UNIT CHARGE SC SCH ×4 (08:57→21:00)
[2022-10-04 09:01] LABS: BUN Creatinine Ratio 13.5 (10-20); Calcium 8.8 mg/dl (8.6-10.3); Est GFR (African American) 64.1 ml/min; Est GFR (Non-African American) 55.3 ml/min; Magnesium 1.6 mg/dl (1.7-2.4); Phosphorus 3.1 mg/dl (2.5-4.9); Potassium 4.1 mmol/L (3.5-5.1)
[2022-10-04] MEDS: FLUTICASONE/VILANTEROL 200/25MCG 14 PUFFS/INHALER INH SCH (09:58)
[2022-10-04] MEDS: GABAPENTIN 100 MG CAP PO SCH ×3 (09:59→21:59)
[2022-10-04] MEDS: gemfibroziL 600 MG TAB PO SCH ×2 (09:59→21:57)
[2022-10-04] MEDS: CYANOCOBALAMIN (B-12) 500 MCG TABLET PO SCH (09:59)
[2022-10-04] MEDS: FENOFIBRATE NANOCRYSTALLIZED 145 MG TABLET PO SCH (09:59)
[2022-10-04] MEDS: amLODIPine BESYLATE 5 MG TAB PO SCH (09:59)
[2022-10-04] MEDS: ADVANCED PROBIOTIC 1250 MG CAPSULE PO SCH (09:59)
[2022-10-04] MEDS: METOPROLOL TARTRATE 50 MG TAB PO SCH ×2 (09:59→21:58)
[2022-10-04] MEDS: ESCITALOPRAM OXALATE 20 MG TAB PO SCH (09:59)
[2022-10-04] MEDS: PANTOprazole 40 MG TAB PO SCH (09:59)
[2022-10-04] MEDS: FOLIC ACID 1 MG TAB PO SCH (09:59)
--- NOTE | 2022-10-04 14:06 | Hospitalist Progress Note ---
Date of Service October 04, 2022 Assessment & Plan (1) Acute appendicitis with localized peritonitis: (2) Sepsis: (3) CARLOS (acute kidney injury): (4) HTN (hypertension): (5) Schizophrenia: (6) Asthma: (7) CARYN (obstructive sleep apnea): (8) Morbid obesity: (9) Hyperlipidemia: (10) Hypothyroidism: Plan Sepsis 2/[address] abd/pelvis with enlarged, inflamed appendix measuring approximately 1.5 cm in diameter, compatible with acute appendicitis. Fluid and fat stranding in the right lower quadrant may represent appendix microperforation status post laparoscopic appendectomy by Dr. Jules on 10/01/2022 Monitor H/H - stable hgb 10.9 post op (pre-op 10.9) Diet being advanced per surgery, patient appears tolerating diet, has moved bowels yesterday, reports improving pain at operative site. Currently on Zosyn since 10/02, can de-escalate to Unasyn with a plan to use Augmentin on discharge. Encourage OOB to chair and ambulate. Continue with probiotic. Pain Mx. CARLOS on CKD - Cr 3.15 on admission (baseline mid-high 1s). S/P ivf. Resolved. Chronic anemia: Baseline Hb around 10. MCV around 95. B12 - 142. Iron profile s/o Iron deficiency. c/w cyanocobalamin 1000 mcg daily; add iron supplement once able to tolerate more solid food. c/w home folic acid. Monitor - CBC and Vit B12 level in 4-8 weeks then in 6 months, then annually. coordinate w/ pcp office. HTN - stable, continue home medications as able. DM II - insulin requiring, well-controlled as of recent hemoglobin A1c of 5.3 last May 2022 Hypothyroidism- continue levothyroxine OHS on CPAP/asthma, stable lung status History traumatic brain injury Paranoid schizophrenia/mood/anxiety disorder -at baseline DVT Ppx and DC: per primary service; on heparin sc. Admission and Anticipated Discharge Date Admission Date: October 01, 2022 Subjective Patient seen and examined at bedside as a follow-up of sepsis secondary to per forated appendicitis status post laparoscopic appendectomy and CARLOS over CKD. Patient was sitting up in chair, on room air, NAD, reports no new acute event overnight, is tolerating low fiber diet, has moved bowel, reports improvement in his abdominal soreness at operative site. Denies any nausea or vomiting or shortness of breath or chest pain or palpitation or headache or dizziness. Physical Exam Physical Exam: GENERAL: Alert and oriented x3. NAD, on RA. Obese class III. HEENT: No pallor, no icterus. Pupils equal, round and reactive to light. Oral mucosa moist. NECK: No JVD, no neck masses. HEART: S1 and S2 heard. Regular rate and rhythm. No murmur, no gallop. RESPIRATORY SYSTEM: Normal AP diameter. No accessory muscle use. No wheezing, no crackles. ABDOMEN: Soft, bowel sounds present, no distention. Right abdomen with dressing (over lap incision) with some soakage, AMARIS drain with scant collection noted. CENTRAL NERVOUS SYSTEM: No facial droop. Speech is clear. Obeys simple commands. Moves extremities. EXTREMITIES: No edema, no erythema seen. Results & Data Results & Data Vital Signs (Past 12 Hours) Vital Signs Temp Pulse Resp BP Pulse Ox O2 Del Method 10/04/22 07:20 36.7 C 67 14 135/77 96 Room Air
[2022-10-04] MEDS: MAGNESIUM SULFATE / D5W 1 GM/100 ML BAG IV SCH ×2 (14:51→16:22)
[2022-10-04] MEDS: traZODone HCL 100 MG TAB PO SCH (21:57)
[2022-10-04] MEDS: OLANZapine 10 MG TAB PO SCH (21:58)
[2022-10-05] MEDS: PIPERACILLIN/TAZOBACTAM 4.5 GM in DEXTROSE 5% 100 ML IV SCH ×2 (05:11→12:17)
[2022-10-05] MEDS: LEVOTHYROXINE SODIUM 25 MCG TABLET PO SCH (05:41)
[2022-10-05] MEDS: HEPARIN SOD 5,000 UNIT/0.5 ML VIAL SQ SCH ×2 (05:41→13:50)
[2022-10-05] MEDS: CYANOCOBALAMIN (B-12) 500 MCG TABLET PO SCH (08:45)
[2022-10-05] MEDS: amLODIPine BESYLATE 5 MG TAB PO SCH (08:45)
[2022-10-05] MEDS: FENOFIBRATE NANOCRYSTALLIZED 145 MG TABLET PO SCH (08:46)
[2022-10-05] MEDS: FOLIC ACID 1 MG TAB PO SCH (08:47)
[2022-10-05] MEDS: GABAPENTIN 100 MG CAP PO SCH ×2 (08:48→13:47)
[2022-10-05] MEDS: ADVANCED PROBIOTIC 1250 MG CAPSULE PO SCH (08:48)
[2022-10-05] MEDS: gemfibroziL 600 MG TAB PO SCH (08:48)
[2022-10-05] MEDS: METOPROLOL TARTRATE 50 MG TAB PO SCH (08:49)
[2022-10-05] MEDS: PANTOprazole 40 MG TAB PO SCH (08:49)
[2022-10-05] MEDS: FLUTICASONE/VILANTEROL 200/25MCG 14 PUFFS/INHALER INH SCH (08:55)
[2022-10-05] MEDS ORDERED: FERROUS SULFATE 325 MG TAB PO SCH (09:00)
[2022-10-05] MEDS: INSULIN ASPART PER UNIT CHARGE SC SCH ×3 (09:15→16:57)
[2022-10-05 09:21] LABS: Hemoglobin 10.9 g/dl (14.0-18.0); Mean Corpuscular Hemoglobin 31.9 pg (25.0-34.0); Mean Corpuscular Volume 96.5 fL (80.0-100.0); Mean Platelet Volume 9.9 fL (9.4-12.4); Platelet Count 305 K/uL (130-400); RDW Coefficient of Variation 13.5 % (11.5-14.5); RDW Standard Deviation 48.1 fL (36.4-46.3); Red Blood Count 3.42 M/uL (4.70-6.10); White Blood Count 3.57 K/ul (4.8-10.8)
--- NOTE | 2022-10-05 09:48 | Surgery Progress Note ---
Date of Service October 05, 2022 Assessment & Plan (1) Acute appendicitis with localized peritonitis: (2) CARLOS (acute kidney injury): Plan: creatinine returned to normal (3) Sepsis: Plan POD # 4 s/p laparoscopic appendectomy for perforated appendicitis - afebrile - vss - Amaris drain serosanguineous Plan: Continue pain management as needed Continue IV zosyn advance diet as tolerated will switch to PO antibiotics at discharge discharge planning back to [facility] Admission and Anticipated Discharge Date Admission Date: October 05, 2022 Subjective Doing well. Minimal pain. No fevers or chills. Tolerating diet. AMARIS drain with serosanguineous output. Physical Exam Gastrointestinal (Abdomen): Inspection/Auscultation: abdomen normal to inspection, + abdominal surgical incision (clean/dry/intact with dermabond) and + abdominal surgical drain present (serosanguineous drainage) Percussion/Palpation: + abdomen tender (at incision sites appropriate postop ) Results & Data Vital Signs (Past 12 Hours) Vital Signs Temp Pulse Pulse Resp BP Pulse Ox O2 Del Method 10/05/22 07:29 36.6 C 60 16 131/80 97 Room Air 10/04/22 21:53 92 H 132/75 96 Room Air Laboratory Results 10/05/22 10/05/22 10/05/22 Range/Units 08:37 08:37 07:59 WBC 3.57 L (4.8-10.8) K/ul RBC 3.42 L (4.70-6.10) M/uL Hgb 10.9 L (14.0-18.0) g/dl Hct 33.0 L (42.0-52.0) % MCV 96.5 (80.0-100.0) fL MCH 31.9 (25.0-34.0) pg MCHC 33.0 (32.0-36.0) g/dL RDW Std Deviation 48.1 H (36.4-46.3) fL RDW Coeff of Jade 13.5 (11.5-14.5) % Plt Count 305 (130-400) K/uL MPV 9.9 (9.4-12.4) fL Sodium Pending Potassium Pending Chloride Pending Carbon Dioxide Pending Anion Gap Pending BUN Pending Creatinine Pending Est Cr Clr Drug Dosing Pending Est GFR ( Amer) Pending Est GFR (Non-Af Amer) Pending BUN/Creatinine Ratio Pending Glucose Pending POC Glucose 102 H (70-99) mg/dl Calcium Pending 10/04/22 10/04/22 10/04/22 Range/Units 20:52 17:08 12:11 WBC (4.8-10.8) K/ul RBC (4.70-6.10) M/uL Hgb (14.0-18.0) g/dl Hct (42.0-52.0) % MCV (80.0-100.0) fL MCH (25.0-34.0) pg MCHC (32.0-36.0) g/dL RDW Std Deviation (36.4-46.3) fL RDW Coeff of Jade (11.5-14.5) % Plt Count (130-400) K/uL MPV (9.4-12.4) fL Sodium Potassium Chloride Carbon Dioxide Anion Gap BUN Creatinine Est Cr Clr Drug Dosing Est GFR ( Amer) Est GFR (Non-Af Amer) BUN/Creatinine Ratio Glucose POC Glucose 121 H 103 H 151 H (70-99) mg/dl Calcium
[2022-10-05 09:49] LABS: Basophils # (auto) 0.03 K/uL (0-0.2); Basophils % (auto) 0.8 %; Eosinophils # (auto) 0.18 K/uL (0-0.50); Immature Granulocytes # (auto) 0.01 K/uL (0.01-0.20); Immature Granulocytes % (auto) 0.3 %; Lymphocytes # (auto) 1.38 K/uL (1.2-3.4); Lymphocytes % (auto) 38.7 %; Monocytes % (auto) 5.6 %; Neutrophils # (auto) 1.77 K/uL (1.40-6.50); Neutrophils % (auto) 49.6 %
[2022-10-05] MEDS: ESCITALOPRAM OXALATE 20 MG TAB PO SCH (10:18)
[2022-10-05 10:44] LABS: Anion Gap 6 (3-11); BUN Creatinine Ratio 12.3 (10-20); Blood Urea Nitrogen 17 mg/dl (6-23); Calcium 9.1 mg/dl (8.6-10.3); Carbon Dioxide 30 mmol/L (21-32); Chloride 103 mmol/L (98-107); Est GFR (African American) 65.8 ml/min; Est GFR (Non-African American) 56.7 ml/min; Glucose 100 mg/dl (70-99(Fasting)); Sodium 139 mmol/L (136-145)
[2022-10-05] MEDS ORDERED: INSULIN ASPART PER UNIT CHARGE SC ONE (17:22)
--- NOTE | 2022-10-05 17:59 | Hospitalist Progress Note ---
Date of Service October 05, 2022 Assessment & Plan (1) Acute appendicitis with localized peritonitis: (2) Sepsis: (3) CARLOS (acute kidney injury): (4) HTN (hypertension): (5) Schizophrenia: (6) Asthma: (7) CARYN (obstructive sleep apnea): (8) Morbid obesity: (9) Hyperlipidemia: (10) Hypothyroidism: Plan Sepsis 2/[address] abd/pelvis with enlarged, inflamed appendix measuring approximately 1.5 cm in diameter, compatible with acute appendicitis. Fluid and fat stranding in the right lower quadrant may represent appendix microperforation status post laparoscopic appendectomy by Dr. Jules on 10/01/2022 Monitor H/H - stable hgb 10.9 post op (pre-op 10.9) Diet being advanced per surgery, patient appears tolerating diet, has moved bowels yesterday, reports improving pain at operative site. Currently on Zosyn since 10/02, can de-escalate to Unasyn with a plan to use Augmentin on discharge. Encourage OOB to chair and ambulate. Continue with probiotic. Pain Mx. CARLOS on CKD - Cr 3.15 on admission (baseline mid-high 1s). S/P ivf. Resolved. Chronic anemia: Baseline Hb around 10. MCV around 95. B12 - 142. Iron profile s/o Iron deficiency. c/w cyanocobalamin 1000 mcg daily; add iron supplement once able to tolerate more solid food. c/w home folic acid. Monitor - CBC and Vit B12 level in 4-8 weeks then in 6 months, then annually. coordinate w/ pcp office. HTN - stable, continue home medications as able. DM II - insulin requiring, well-controlled as of recent hemoglobin A1c of 5.3 last May 2022 Hypothyroidism- continue levothyroxine OHS on CPAP/asthma, stable lung status History traumatic brain injury Paranoid schizophrenia/mood/anxiety disorder -at baseline DVT Ppx and DC: per primary service; on heparin sc. Admission and Anticipated Discharge Date Admission Date: October 05, 2022 Subjective Patient seen and examined at bedside as a follow-up of sepsis secondary to per forated appendicitis status post laparoscopic appendectomy and CARLOS over CKD. Patient was sitting up in chair, on room air, NAD, reports no new acute event overnight, is tolerating low fiber diet, has moved bowel, reports improvement in his abdominal soreness at operative site. Denies any nausea or vomiting or shortness of breath or chest pain or palpitation or headache or dizziness. Physical Exam Physical Exam: GENERAL: Alert and oriented x3. NAD, on RA. Obese class III. HEENT: No pallor, no icterus. Pupils equal, round and reactive to light. Oral mucosa moist. NECK: No JVD, no neck masses. HEART: S1 and S2 heard. Regular rate and rhythm. No murmur, no gallop. RESPIRATORY SYSTEM: Normal AP diameter. No accessory muscle use. No wheezing, no crackles. ABDOMEN: Soft, bowel sounds present, no distention. Right abdomen with dressing (over lap incision) with some soakage, AMARIS drain with scant collection noted. CENTRAL NERVOUS SYSTEM: No facial droop. Speech is clear. Obeys simple commands. Moves extremities. EXTREMITIES: No edema, no erythema seen. Results & Data Results & Data Vital Signs (Past 12 Hours) Vital Signs Temp Pulse Pulse Resp BP Pulse Ox O2 Del Method 10/05/22 16:08 36.8 C 60 59 L 16 142/75 H 97 10/05/22 15:26 36.8 C 59 L 16 142/75 H 97 Room Air 10/05/22 07:29 36.6 C 60 16 131/80 97 Room Air
== END 2022-10-05 17:23 | disposition home or self-care (01) | DRG 853 ==
LOC: ED 18:16 → OR 21:11 → 3N 23:33 → INTOOBSV 23:33